=== PATIENT | male | born 1950 | race Caucasian/White ===

== ENCOUNTER → 2019-11-05 12:47 | Outpatient (CLI) | payer MEDICARE, SELFPAY ==
[2019-08-14 13:25] VITALS: BMI 36.2
--- NOTE | 2019-11-05 12:49 | ECHOCS_ITS ---
Reason For Study: AFIB Procedure This was a 2D Doppler, Color Flow transthoracic echocardiogram. The study was technically difficult. The study was technically limited. Contrast injection was performed. Exam performed in department. Left Ventricle Normal size and thickness. The estimated ejection fraction is 65 %. Stage 1 diastolic dysfunction. No regional wall motion abnormalities noted. Right Ventricle Normal size and thickness. Normal systolic function. Atria Normal left atrium. Normal right atrium. Normal atrial septum. Mitral Valve The mitral valve is structurally normal. No prolapse or stenosis seen. Tricuspid Valve Normal tricuspid valve. Unable to estimate RV systolic pressure due to insufficient tricuspid regurgitant envelope. Aortic Valve Trisinus/trileaflet aortic valve. Mild diffuse aortic valve thickening. There is no aortic stenosis. Pulmonic Valve Normal pulmonic valve. Great Vessels Normal aortic root. Normal arch. Normal inferior vena cava. Inferior vena cava collapse with sniff. Pericardium/Pleural No pericardial effusion. Medication 22 gauge I.V. with prn adaptor inserted into right arm. Diluted definity 4.0ml given slow IV push to enhance endocardial definition. MMode/2D Measurements & Calculations RVDd: 3.5 cm Ao root diam: 3.2 cm LAV(MOD-bp): 57.4 ml LAV(MOD-bp) Indexed: 23.9 ml/m2 LAV(MOD-sp2): 74.6 ml LAV(MOD-sp4): 42.6 ml SV(MOD-sp4): 93.0 ml SV(sp4-el): 98.2 ml LVAd ap4: 39.3 cm2 EDV(MOD-sp4): 139.4 ml EDV(sp4-el): 146.6 ml LVAs ap4: 19.5 cm2 ESV(MOD-sp4): 46.4 ml ESV(sp4-el): 48.5 ml EF(MOD-sp4): 66.7 % EF(sp4-el): 66.9 % LA dimension(2D): 3.8 cm LA A4 area: 17.5 cm2 RA A4 area: 13.3 cm2 Time Measurements MV dec time: 0.16 sec Doppler Measurements & Calculations MV E max shawn: 86.4 cm/sec Lat Peak E' Shawn: 7.6 cm/sec Med Peak E' Shawn: 5.8 cm/sec MV A max shawn: 113.9 cm/sec E/E' lat: 11.4 E/E' med: 14.9 MV E/A: 0.76 Ao V2 max: 131.4 cm/sec LV V1 max: 95.5 cm/sec PA V2 max: 120.5 cm/sec Ao max P.9 mmHg LV V1 max P.6 mmHg Interpretation Summary The estimated ejection fraction is 65 %. Stage 1 diastolic dysfunction. Unable to estimate RV systolic pressure due to insufficient tricuspid regurgitant envelope. Patient appears to be in normal sinus rhythm. The study was technically difficult. Contrast injection was performed. There is no comparison study available. Ordering Physician: Madhu Gurrola Referring Physician: Waqas YEE Performed By: Iglesia SHIELDS, Ryanne SEBASTIAN and Student
== END ==
PROVIDERS: PCP Physician Assistant; Referring Provider Internal Medicine Cardiovascular Disease; Visit Provider Internal Medicine Cardiovascular Disease
DX: I48.0 Paroxysmal atrial fibrillation (principal)
CPT/HCPCS: 93306; Q9957; A4216; C8929

== ENCOUNTER → 2019-11-09 13:24 | Outpatient (CLI) | payer MEDICARE, SELFPAY ==
[2019-08-14 13:25] VITALS: BMI 36.2
--- NOTE | 2019-11-09 13:25 | STEWCON_ITS ---
Reason For Study: Atrial Fibrillation Stress Results Protocol: Modified Ceasar Protocol With Definity Maximum Predicted HR: 150 bpm Target HR: 128 bpm % Maximum Predicted HR: 81 % Heart Stage Duration Rate BP Comment (mm:ss) (bpm) No Chest Pain; 3 ML Diluted Definity; Pt Diaphoretic- Baseline 90 154/90Electrodes Not Adhering Well Modified Ceasar Protocol Stage 0 3:00 115 184/82No Chest Pain; Mild to Mod Dyspnea Modified Ceasar Protocol Stage 1/2 3:00 118 190/84No Chest Pain; Mild to Mod Dyspnea Modified Ceasar Protocol Stage 1 1:07 122 / No Chest Pain; Mod to Severe Dyspnea Recovery 96 154/88No Chest Pain Stress Duration: 7:07 mm:ss Maximum Stress HR: 122 bpm METS: 4 Baseline Echocardiogram Findings The estimated ejection fraction is 65 %. Stress Echo Wall motion Data Resting WM Intermediate WM Stress WM Resting Wall Motion Wall Motion Stress No regional wall motion No regional wall motion abnormalities noted. abnormalities noted. EKG Data The baseline ECG displays normal sinus rhythm. The maximum heart rate attained was 136 beats per minute. This was 90% of maximum predicted heart rate. The patient exercised into stage 1 of the Ceasar protocol. During stress, there were no ST or T wave changes noted to suggest ischemia. No clinical angina was noted. No arrhythmias noted. Interpretation Summary The estimated ejection fraction is 65 %. Normal, submaximal, treadmill echocardiogram. Negative for ischemia by EKG and echocardiographic criteria. No anginal symptoms noted. No arrhythmias noted. Hypertensive blood pressure response to exercise. Below average exercise capacity for age. Final LVEF is 75%. Test terminated due to dyspnea. Patient tolerated procedure well. Decrease sensitivity due to poor echo windows requiring Definity agent. No complications. The study was technically difficult. Contrast injection was performed. Ordering Physician: Madhu Gurrola Referring Physician: Yuniel Haro Performed By: Sadaf Rao RDCS
== END ==
PROVIDERS: PCP Physician Assistant; Referring Provider Internal Medicine Cardiovascular Disease; Visit Provider Internal Medicine Cardiovascular Disease
DX: I48.0 Paroxysmal atrial fibrillation (principal); E78.5 Hyperlipidemia, unspecified; Z86.79 Personal history of other diseases of the circulatory system; R94.31 Abnormal electrocardiogram [ECG] [EKG]
CPT/HCPCS: 93017; 93350; Q9957; A4216; C8928

== ENCOUNTER 2020-09-29 17:40 | Inpatient (IN) | payer MEDICARE, SELFPAY ==
[2020-07-01 15:26] VITALS: BMI 38.7
[2020-09-29] VITALS (10 sets, daily range): BP systolic 89–135; BP diastolic 54–66; PULSE 88–101; RESP 18–22; TEMP 36.2–37.2; O2SAT 96–100; BMI 37.8; BMI 36.8
--- NOTE | 2020-09-29 17:51 | EKG12_ITS ---
Test Reason : RIGHT SIDED Blood Pressure : / mmHG Vent. Rate : 103 BPM Atrial Rate : 103 BPM P-R Int : 192 ms QRS Dur : 100 ms QT Int : 288 ms P-R-T Axes : 022 003 142 degrees QTc Int : 377 ms Sinus tachycardia with occasional Premature ventricular complexes Poor R wave progression Anterolater MT, age undetermined, cannot be excluded Posterior MT, age undetermined, cannot be excluded Nonspecific ST and T wave abnormality Confirmed by STANLEY MORROW, KEVEN ([id number]), editor in chief CHANDRA QUICK ([id number]) on 10/01/2020 1:00:59 PM Referred By: PATI Confirmed By:KEVEN ANGEL MD
--- NOTE | 2020-09-29 17:54 | EKG12_ITS ---
Test Reason : SYNCOPE Blood Pressure : / mmHG Vent. Rate : 104 BPM Atrial Rate : 104 BPM P-R Int : 188 ms QRS Dur : 184 ms QT Int : 404 ms P-R-T Axes : 025 039 -86 degrees QTc Int : 531 ms Sinus tachycardia Left bundle branch block Abnormal ECG Confirmed by STANLEY MORROW, KEVEN ([id number]), film or videotape editor CHANDRA QUICK ([id number]) on 10/01/2020 12:57:13 PM Referred By: PATI Confirmed By:KEVEN ANGEL MD
--- NOTE | 2020-09-29 18:01 | CT_ITS ---
STUDY: CTA CHEST AND CT ABDOMEN/PELVIS WITH CONTRAST REASON FOR EXAM: Male, 69 years old. chest pain, abdominal pain RADIATION DOSAGE (If Supplied By Facility): CTDIvol = ( 14.08 ) mGy, DLP = ( 1480.36 ) mGycm TECHNIQUE: The examination was performed with the intravenous administration of IV 100mL Isovue-370. Post-processing of the angiographic images was performed, with multiplanar reformation and 3D reconstruction. Individualized dose optimization techniques were used for this CT. COMPARISON: No relevant priors. FINDINGS: CTA Chest Normal enhancement of the main pulmonary artery and right and left pulmonary arteries. Normal enhancement of the bilateral peripheral pulmonary arteries. There is no demonstrated pulmonary embolism. Normal thoracic aorta and visualized great vessels. There is no demonstrated aortic dissection. Normal heart and pericardium. Normal mediastinum. Normal hilar regions. Normal visualized trachea and bronchi. The lungs are well expanded. Normal pulmonary parenchyma. Normal pleura. Normal chest wall structures. Normal osseous structures. Normal visualized upper abdomen. CT Abdomen T Pelvis The visualized lung bases are unremarkable. The visualized portions of the heart are within normal limits. There is decreased attenuation of the liver consistent with steatosis. Normal gallbladder and extrahepatic biliary system. Normal spleen. There is diffuse enlargement of the pancreas with robin-pancreatic edema suggesting acute pancreatitis. No loculated fluid collection to suggest abscess or pseudocyst. Normal enhancement of the pancreas without evidence of necrotizing pancreatitis. Small amount of fluid within the left and right anterior pararenal spaces as well as the as well as the paracolic gutters. Normal bilateral adrenal glands. Normal right kidney. Normal left kidney. Normal visualized stomach. Normal small intestine. Normal colon. The appendix is visualized and appears normal. Normal abdominal aorta. Normal inferior vena cava. Normal retroperitoneum. Normal urinary bladder. Normal abdominal wall. Mild levoscoliosis lumbar spine with degenerative disc disease. Status post right hip arthroplasty which produces streak artifact obscures the pelvis. CT/CTA Chst, Abd, Pel W and/or WO IMPRESSION: 1. No CT evidence of pulmonary embolism. 2. Acute pancreatitis without pseudocyst, abscess, or necrotizing pancreatitis. Electronically Signed: Jerry Perry MD at 18:59 EDT Tel , Service support ,
[2020-09-29] MEDS: 0.9% Normal Saline 1,000 ML 999 ML IV ×2 (18:15→20:14)
[2020-09-29 18:19] LABS: Absolute Lymphocyte Count 0.38 X10^3/uL (0.83-4.51); Absolute Neutrophil Count 6.8 X10^3/uL (2.0-7.7); Basophil# 0.03 X10^3/uL; Basophil% 0.4 % (0-1); Eosinophil# 0.01 X10^3/uL; Eosinophils% 0.1 % (0-5); Hematocrit 40.2 % (40-54); Hemoglobin 13.6 g/dL (13.0-16.5); Lymphocyte # 0.38 X10^3/ul (0.83-4.51); Lymphocyte % 4.8 % (19-41); Mean Corp Hgb Conc 33.8 g/dL (32-36); Mean Corpuscular Hgb 35.4 pg (27.0-32.0); Mean Corpuscular Volume 104.7 fL (80-94); Mean Platelet Vol. 9.5 fl (6.2-12.0); Monocyte# 0.61 X10^3/uL; Monocyte% 7.7 % (0-10); NRBC Flagged by Analyzer 0.6 % (0-5); Neutrophil # 6.81 X10^3/uL (2.7-7.7); Neutrophil % 85.7 % (47-70); POSITIVE DIFFERENTIAL YES; Platelet Count 103 K/mm3 (150-450); RBC Distribution Width CV 12.2 % (11.6-14.6); RBC Distribution Width SD 47.2 fl (35.1-43.9); Red Blood Count 3.84 M/mm3 (4.6-6.2); White Blood Count 7.9 K/mm3 (4.4-11.0)
--- NOTE | 2020-09-29 18:22 | RAD_ITS ---
STUDY: X-RAY CHEST REASON FOR EXAM: Male, 69 years old. dyspnea TECHNIQUE: Single AP portable view of the chest. COMPARISON: 07/24/2016 FINDINGS: The lungs are clear and expanded. There is no demonstrated pleural abnormality. Normal size heart. Normal mediastinum and brandy. Normal visualized pulmonary arteries. Normal visualized aortic arch and descending thoracic aorta. Normal visualized thoracic spine. Normal visualized ribs, clavicles, and shoulders. There is no demonstrated abnormality of the visualized soft tissue structures of the upper abdomen. RAD/Chest 1 View (Portable) IMPRESSION: Normal x-ray examination of the chest. Electronically Signed: Jerry Perry MD at 18:39 EDT Tel , Service support ,
[2020-09-29 18:31] LABS: Differential Indicated SCAN CRITERIA MET
[2020-09-29 18:41] LABS: International Normalized Ratio 1.2; Prothrombin Time (Protime)PT. 14.3 SECONDS (11.7-14.9)
[2020-09-29 18:43] LABS: ALB/GLOB Ratio 1.1 RATIO (0.9-2.4); AST(SGOT) 57 U/L (15-37); Alanine Aminotransfer ALT/SGPT 38 U/L (16-61); Albumin, Serum 3.6 g/dL (3.2-5.0); Alkaline Phosphatase 68 U/L (45-117); Anion Gap 25 (5-15); BUN 13 mg/dL (7-18); BUN/Creat Ratio 8.7 RATIO (10-20); Calcium,Total 10.7 mg/dL (8.5-10.1); Chloride 89 mmol/L (98-107); Differential Comment SCANNED; EST Glomerular Filtration Rate 49 mL/min (>60); Est Glom Filt Rate - Afr Amer 59 mL/min (>60); Estimated Creatinine Clearance 48.81 ml/min; Globulin 3.4 g/dL (2.2-4.2); Glucose 125 mg/dL (74-106); Partial Thromboplast Time 25.8 Seconds (24.1-36.2); Potassium 2.8 mmol/L (3.5-5.1); Sodium Level 127 mmol/L (136-145)
[2020-09-29 18:46] LABS: BNP,B-Type NATRIURETIC PEPTIDE 19.3 pg/mL (0-100)
[2020-09-29 19:08] LABS: Lactic Acid 5.6 mmol/L (0.4-1.9)
[2020-09-29 19:13] LABS: D-Dimer Quantitative (DVT/PE) 9.19 FEU/ug/m (0.27-0.49)
[2020-09-29 19:47] LABS: Lipase 3860 U/L (73-393); Magnesium 1.6 mg/dL (1.6-2.6)
[2020-09-29] MEDS: Magnesium Sulfate 4gm/100mL 4 GM/100 ML IV.SOLN. IV (20:14)
[2020-09-29] MEDS: Potassium Chloride 10mEq/100mL 10 MEQ/100 ML IV.SOLN. 100 MEQ IV BOLUS ×4 (20:14→23:27)
--- NOTE | 2020-09-29 21:02 | EX.ED.DYSGE1 ---
HPI History of Present Illness Chief Complaint: Syncope [facility] Medical History Asthma Dysmetabolic syndrome X GERD (gastroesophageal reflux disease) History of paroxysmal supraventricular tachycardia Hyperlipidemia Hypertension Obesity Paroxysmal atrial fibrillation Home Medications albuterol sulfate 2 puff INHALATION Q4H PRN PRN 07/24/16 [History Last Taken Unknown] atorvastatin 20 mg PO QHS 07/24/16 [History Last Taken Unknown] aspirin 325 mg tablet 325 mg PO DAILY tab 07/31/19 [History Last Taken Unknown] losartan 100 mg tablet 100 mg PO DAILY #90 tab 03/18/20 [Rx Last Taken Unknown] azelastine 137 mcg (0.1 %) nasal spray aerosol 1 spray INTRANASAL BID PRN 05/06/20 [History Last Taken Unknown] amlodipine 10 mg tablet 10 mg PO DAILY #30 tab 07/01/20 [Rx Last Taken Unknown] acebutolol 200 mg PO BID 09/29/20 [History Last Taken Unknown] Allergy/AdvReac Type Severity Reaction Status Date / Time No Known Allergies Allergy Verified 09/29/20 17:46 environmental allergies Allergy Intermediate eyes Uncoded 09/29/20 17:46 water, asthma Family History Mother CAD (coronary artery disease) Arthritis Sister , MVA Motor vehicle accident Grandfather Throat cancer Surgical History 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) Social History (Updated 07/02/20 @ 14:25 by Delfino Powell OIL RIG DRILLER, OIL RIG DRILLER-C) Smoking Status: Never smoker alcohol intake: current alcohol intake frequency: 0-2 drinks per day substance use type: does not use caffeine: No EXAM Physical Exam Const Vital Signs: 09/29/20 17:41 09/29/20 17:46 09/29/20 17:54 Temperature 97.1 F L Temperature Source Temporal Pulse Rate 94 97 Respiratory Rate 22 H 18 Respiratory Effort Short of Breath Respiratory Pattern Tachypnea Blood Pressure 97/54 L 89/58 L Blood Pressure Mean 68 68 Pulse Ox 98 98 Oxygen Delivery Method Room Air Room Air Oxygen Flow Rate (L/min) 09/29/20 18:24 09/29/20 19:00 09/29/20 20:00 Temperature 97.5 F L 98.9 F 98.9 F Temperature Source Oral Oral Oral Pulse Rate 95 95 88 Respiratory Rate 20 H 22 H 18 Respiratory Effort Respiratory Pattern Blood Pressure 96/60 91/58 L 92/63 Blood Pressure Mean 72 69 72 Pulse Ox 100 96 100 Oxygen Delivery Method Nasal Cannula Nasal Cannula Room Air Oxygen Flow Rate (L/min) 2 2 2 MDM MDM MDM Narrative Medical decision making narrative: Patient presents hypotensive with near syncopal episode. He is not complaining of any pain in his chest or his abdomen. He had an initial EKG which showed a wide-complex sinus tachycardia with left bundle branch block as interpreted by myself. When it was noticed that his rhythm had changed on the monitor another EKG was performed which showed a sinus rhythm at 102 beats per minute with some T wave inversions in V3 V4 lead I and lead aVL as interpreted by myself. Right-sided EKG was performed which is sinus rhythm at 103 bpm with T wave inversions in 1 and aVL and few PVCs as interpreted by myself. Chest x-ray as interpreted by myself shows no acute cardiopulmonary process. When a blood pressure cuff was placed on his left arm his systolic blood pressure was 20 last than his right arm. At this point he was taken for CTA of the chest abdomen pelvis which did not have identify PEs or dissection but does identify pancreatitis. At this point added on a lipase which is elevated at 3860. Initially the patient told me that he does not drink but after finding this I asked him again and he stated that he does shots in the morning. Patient's D-dimer was ordered prior to the scan however says it was emergently done that did result. It was 9.19 without evidence of PE. His rapid Covid is negative. White blood cell count 7.9, hemoglobin 13.6, platelets 103. Patient is lymphopenic. On his CMP his sodium is 127, potassium 2.8, chloride 89, CO2 13, anion gap of 25. Creatinine is 1.5. Patient's calcium is 10.7 total bilirubin 1.5, AST 57 the rest of his LFTs are normal. Troponin is negative. BNP is negative. EtOH is 28. 3 L of fluid. Although his magnesium level is the lower limit of normal I did give him magnesium with the IV fluids and then start restart of depleting potassium IV as to keep him n.p.o. for his of pancreatitis. His lactic acid then returned at 5.6. After fluids were repleted patient became anxious and his blood pressure increased and is currently 159/108. I believe the patient is likely going into withdrawal. He is ordered 1 mg of Ativan. Patient was discussed with hospitalist who will admit the patient in stabilized condition. Impression: 1. Acute pancreatitis 2. Hypotension resolved 3. Lactic acidosis 4. EtOH withdrawal 5. Hypokalemia 6. Hypercalcemia Lab Data Labs: Laboratory Results - last 24 hr 09/29/20 09/29/20 09/29/20 17:30 17:30 17:30 WBC 7.9 RBC 3.84 L Hgb 13.6 Hct 40.2 MCV 104.7 H MCH 35.4 H MCHC 33.8 RDW Std Deviation 47.2 H RDW Coeff of Willy 12.2 Plt Count 103 L MPV 9.5 Immature Gran % (Auto) 1.300 H Neut % (Auto) 85.7 H Lymph % (Auto) 4.8 L Petroleum % (Auto) 7.7 Eos % (Auto) 0.1 Baso % (Auto) 0.4 Absolute Neuts (auto) 6.8 Absolute Lymphs (auto) 0.38 L Nucleated RBC % 0.6 Differential Comment SCANNED PT 14.3 INR 1.2 APTT 25.8 D-Dimer Quant (PE/DVT) 9.19 H* Sodium 127 L Potassium 2.8 L Chloride 89 L Carbon Dioxide 13.0 L Anion Gap 25 H BUN 13 Creatinine 1.50 H Estim Creat Clear Calc 48.81 Est GFR (MDRD) Af Amer 59 L Est GFR (MDRD) Non-Af 49 L BUN/Creatinine Ratio 8.7 L Glucose 125 H Lactic Acid Calcium 10.7 H Magnesium Total Bilirubin 1.50 H AST 57 H ALT 38 Alkaline Phosphatase 68 Troponin I < 0.015 B-Natriuretic Peptide Total Protein 7.0 Albumin 3.6 Globulin 3.4 Albumin/Globulin Ratio 1.1 Lipase Ethyl Alcohol 09/29/20 09/29/20 09/29/20 17:30 17:30 17:58 WBC RBC Hgb Hct MCV MCH MCHC RDW Std Deviation RDW Coeff of Willy Plt Count MPV Immature Gran % (Auto) Neut % (Auto) Lymph % (Auto) Petroleum % (Auto) Eos % (Auto) Baso % (Auto) Absolute Neuts (auto) Absolute Lymphs (auto) Nucleated RBC % Differential Comment PT INR APTT D-Dimer Quant (PE/DVT) Sodium Potassium Chloride Carbon Dioxide Anion Gap BUN Creatinine Estim Creat Clear Calc Est GFR (MDRD) Af Amer Est GFR (MDRD) Non-Af BUN/Creatinine Ratio Glucose Lactic Acid Calcium Magnesium 1.6 Total Bilirubin AST ALT Alkaline Phosphatase Troponin I B-Natriuretic Peptide 19.3 Total Protein Albumin Globulin Albumin/Globulin Ratio Lipase 3860 H Ethyl Alcohol 28.0 09/29/20 18:20 WBC RBC Hgb Hct MCV MCH MCHC RDW Std Deviation RDW Coeff of Willy Plt Count MPV Immature Gran % (Auto) Neut % (Auto) Lymph % (Auto) Petroleum % (Auto) Eos % (Auto) Baso % (Auto) Absolute Neuts (auto) Absolute Lymphs (auto) Nucleated RBC % Differential Comment PT INR APTT D-Dimer Quant (PE/DVT) Sodium Potassium Chloride Carbon Dioxide Anion Gap BUN Creatinine Estim Creat Clear Calc Est GFR (MDRD) Af Amer Est GFR (MDRD) Non-Af BUN/Creatinine Ratio Glucose Lactic Acid 5.6 H* Calcium Magnesium Total Bilirubin AST ALT Alkaline Phosphatase Troponin I B-Natriuretic Peptide Total Protein Albumin Globulin Albumin/Globulin Ratio Lipase Ethyl Alcohol Radiography Diagnostic Testing: Radiology Impression Chest/Abdomen/Pelvis CTA 09/29/20 18:01 IMPRESSION: 1. No CT evidence of pulmonary embolism. 2. Acute pancreatitis without pseudocyst, abscess, or necrotizing pancreatitis. Electronically Signed: Jerry Perry MD at 18:59 EDT Tel , Service support , Chest X-Ray 09/29/20 18:22 IMPRESSION: Normal x-ray examination of the chest. Electronically Signed: Jerry Perry MD at 18:39 EDT Tel , Service support , Discharge Plan Triage Chief Complaint: Syncope ED Provider: Lazaro Foreman Dx/Rx/DC Orders Prescriptions: No Action losartan 100 mg tablet 100 mg PO DAILY Qty: 90 RF: 3 amlodipine 10 mg tablet 10 mg PO DAILY Qty: 30 RF: 11 atorvastatin 20 MG tablet 20 mg PO QHS RF: 0 albuterol sulfate 1 PUFF inhaler 2 puff inhalation Q4H PRN PRN (Reason: Sob &/Or Wheezing) RF: 0 aspirin 325 mg tablet 325 mg PO DAILY RF: 0 azelastine 137 mcg (0.1 %) aerosol,spray 1 spray INTRANASAL BID PRN (Reason: allergies) RF: 0 acebutolol 200 mg capsule 200 mg PO BID RF: 0 Primary Care Provider: Waqas Haro
[2020-09-29] MEDS: LORazepam 2 MG/ML Syringe 1 MG IV (21:26)
--- NOTE | 2020-09-29 21:27 | HP.PCM.HOS_ITS ---
[facility] - General General Date of Admission: 09/29/20 Date of Service: 09/29/20 Chief Complaint: Fall, could not get up. [facility] Narrative GUERLINE ROCKWELL, is a 69 years old male patient presented to the emergency room because of fall and was not able to stand up. Patient stated that he went to the bathroom, was sitting on the toilet, stood up and he tried to walk. He feels very weak and his legs gave out and he collapsed on the floor and could not get up. He denied being dizzy or lightheaded at that that time. He denied loss of consciousness, syncope or presyncope. He denied chest pain, palpitation. He did mention that he was short of breath when that happened. He denied fever or chills. He denied cough or sputum production. He denied seizure activity. He has no other complaints. He denied abdominal pain, nausea or vomiting. He had a history of paroxysmal atrial fibrillation, has been on acebutolol for rate control but he is not on anticoagulation. He had a history of hypertension which has been under control with Norvasc, losartan and acebutolol. He has alcohol abuse and has been drinking every day at least for the last year and his last drink was last night. In the emergency department, he was afebrile, initial blood pressure was borderline, systolic was around 90 but improved with IV fluids. Heart rate stable, pulse ox was 99% on 2 L. Routine blood work was remarkable for platelet count of 103,000, sodium was 127, potassium is 2.8. Creatinine is 1.5. Lactic acid was 5.6. LFT revealed bilirubin of 1.5, otherwise unremarkable. Initial EKG revealed sinus tachycardia with LBBB,. Repeat EKG revealed sinus tachycardia again but LBBB disappeared, no acute ST relation. Troponin was negative. Chest x-ray showed no acute findings. CTA chest showed no PE or dissection. CTA of the abdomen revealed acute pancreatitis without evidence of pseudocyst, abscess or necrotizing pancreatitis. He is being admitted for acute pancreatitis, electrolyte abnormalities, transient hypotension, lactic acidosis, alcohol withdrawal. [facility] Medical History (Updated 09/30/20 @ 00:[address] Tucker Martin MD) Asthma Dysmetabolic syndrome X GERD (gastroesophageal reflux disease) History of paroxysmal supraventricular tachycardia Hyperlipidemia Hypertension Obesity Paroxysmal atrial fibrillation Home Medications albuterol sulfate 2 puff INHALATION Q4H PRN PRN 07/24/16 [History Last Taken Unknown] atorvastatin 20 mg PO QHS 07/24/16 [History Last Taken 09/28/20] aspirin 325 mg tablet 325 mg PO DAILY tab 07/31/19 [History Last Taken 09/29/20] losartan 100 mg tablet 100 mg PO DAILY #90 tab 03/18/20 [Rx Last Taken 09/29/20] azelastine 137 mcg (0.1 %) nasal spray aerosol 1 spray INTRANASAL BID PRN 05/06/20 [History Last Taken Unknown] amlodipine 10 mg tablet 10 mg PO DAILY #30 tab 07/01/20 [Rx Last Taken 09/29/20] acebutolol 200 mg PO BID 09/29/20 [History Last Taken 09/29/20] Allergy/AdvReac Type Severity Reaction Status Date / Time No Known Allergies Allergy Verified 09/29/20 17:46 environmental allergies Allergy Intermediate eyes Uncoded 09/29/20 17:46 water, asthma Family History Mother CAD (coronary artery disease) Arthritis Sister , MVA Motor vehicle accident Grandfather Throat cancer Surgical History 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) Social History Smoking Status: Never smoker alcohol intake: current alcohol intake frequency: 0-2 drinks per day substance use type: does not use caffeine: No ROS Constitutional Constitutional: Reports anorexia, fatigue and weakness; Denies chills, fever(s) or malaise Eyes Eyes: Denies blurry vision, change in eye color, change in vision, double vision or eye pain ENT HEENT: Denies ear pain, epistaxis, headache(s), nasal congestion, post nasal drip or sore throat Cardiovascular Cardiovascular: Denies chest pain, dyspnea on exertion, edema, lightheadedness, orthopnea, palpitations, paroxysmal nocturnal dyspnea or syncope Respiratory/Chest Respiratory/Chest: Reports shortness of breath at rest; Denies cough, dyspnea, hemoptysis, productive cough or wheezing Gastrointestinal Gastrointestinal: Denies abdominal pain, constipation, diarrhea, hematemesis, hematochezia, melena, nausea or vomiting Genitourinary Genitourinary: Denies burning urination, dysuria, hematuria, urinary hesitancy or urinary urgency Musculoskeletal Musculoskeletal: Denies arthralgias, back pain, joint pain, joint swelling, myalgias or neck pain Neurologic Neurologic: Denies confusion, dizziness, focal weakness, headache(s), numbness, paresthesias, seizures, tingling or tremor(s) Psychiatric Psychiatric: Denies anxiety, depression, hallucinations, homicidal ideation or suicidal ideation Endocrine Endocrinology: Denies change in body appearance, cold intolerance, heat intolerance, polydipsia or polyuria Hematologic/Lymphatic Hematologic/Lymphatic: Denies easy bleeding, easy bruising or lymphadenopathy Allergic/Immunologic Allergic/Immunologic: Denies itchy eyes, rhinitis, throat swelling, tongue swelling, hives, urticaria or wheezing Vital Signs Vital Signs Vital Signs: 09/29/20 17:41 09/29/20 17:46 09/29/20 17:54 Temperature 97.1 F L Temperature Source Temporal Pulse Rate 94 97 Respiratory Rate 22 H 18 Respiratory Effort Short of Breath Respiratory Pattern Tachypnea Blood Pressure 97/54 L 89/58 L Blood Pressure Mean 68 68 Pulse Ox 98 98 Oxygen Delivery Method Room Air Room Air Oxygen Flow Rate (L/min) 09/29/20 18:24 09/29/20 19:00 09/29/20 20:00 Temperature 97.5 F L 98.9 F 98.9 F Temperature Source Oral Oral Oral Pulse Rate 95 95 88 Respiratory Rate 20 H 22 H 18 Respiratory Effort Respiratory Pattern Blood Pressure 96/60 91/58 L 92/63 Blood Pressure Mean 72 69 72 Pulse Ox 100 96 100 Oxygen Delivery Method Nasal Cannula Nasal Cannula Room Air Oxygen Flow Rate (L/min) 2 2 2 09/29/20 21:00 09/29/20 21:11 09/29/20 21:15 Temperature 98.9 F 97.8 F Temperature Source Oral Temporal Pulse Rate 90 90 95 Respiratory Rate 21 H 21 H 22 H Respiratory Effort Respiratory Pattern Blood Pressure 133/66 H 133/66 H 133/66 H Blood Pressure Mean 88 88 88 Pulse Ox 100 100 99 Oxygen Delivery Method Nasal Cannula Nasal Cannula Nasal Cannula Oxygen Flow Rate (L/min) 2 2 2 Weight Weight: 271 lb 9.752 oz Body Mass Index (BMI) 37.8 Physical Exam Const alert, oriented x3 and no limitations Constitutional Narrative: Anxious, jittery. General Appearance: cooperative, comfortable and well kempt HEENT normocephalic, head/scalp atraumatic and moist oral mucous membranes Head and Scalp: normocephalic and atraumatic Eyes PERRL, EOMs intact bilaterally, conjunctivae normal and no scleral icterus General Eye: normal appearance of both eyes Periorbital: periorbital findings normal Neck no lymphadenopathy, supple, no meningeal signs, no JVD and no carotid bruits General: trachea midline Thyroid: thyroid normal Resp normal air movement and clear to auscultation bilaterally Resp Narrative: Diminished with sounds bilateral, otherwise clear. Auscultation: Negative for crackles, rales, rhonchi or wheezes Cardio regular rate, regular rhythm, S1 normal heart sound, S2 normal heart sound and no JVD Cardio Narrative: Tachycardia. Peripheral Pulses: pulses 2+ throughout GI normal to inspection, nondistended, normoactive bowel sounds, soft to palpation, non-tender and non-distended; Negative for hepatosplenomegaly Auscultation: normoactive bowel sounds Extremity normal to inspection and full ROM Extremity Narrative: Trace edema, no clubbing or cyanosis. Skin no rashes or lesions noted, no wounds and no petechiae Neuro oriented x3, CN's II-XII intact bilaterally and moves all extremities Sensorium / Orientation: alert Speech: speech normal Motor Exam: strength 5/5 throughout Psych mental status grossly normal, affect normal and denies hallucinations Activity / Motor Behavior: restless Lab / Micro Data Result Diagrams: 09/29/20 17:30 09/29/20 17:30 Labs: Laboratory Results - last 24 hr 09/29/20 09/29/20 09/29/20 17:30 17:30 17:30 WBC 7.9 RBC 3.84 L Hgb 13.6 Hct 40.2 MCV 104.7 H MCH 35.4 H MCHC 33.8 RDW Std Deviation 47.2 H RDW Coeff of Willy 12.2 Plt Count 103 L MPV 9.5 Immature Gran % (Auto) 1.300 H Neut % (Auto) 85.7 H Lymph % (Auto) 4.8 L [place] % (Auto) 7.7 Eos % (Auto) 0.1 Baso % (Auto) 0.4 Absolute Neuts (auto) 6.8 Absolute Lymphs (auto) 0.38 L Nucleated RBC % 0.6 Differential Comment SCANNED PT 14.3 INR 1.2 APTT 25.8 D-Dimer Quant (PE/DVT) 9.19 H* Sodium 127 L Potassium 2.8 L Chloride 89 L Carbon Dioxide 13.0 L Anion Gap 25 H BUN 13 Creatinine 1.50 H Estim Creat Clear Calc 48.81 Est GFR (MDRD) Af Amer 59 L Est GFR (MDRD) Non-Af 49 L BUN/Creatinine Ratio 8.7 L Glucose 125 H Lactic Acid Calcium 10.7 H Magnesium Total Bilirubin 1.50 H AST 57 H ALT 38 Alkaline Phosphatase 68 Troponin I < 0.015 B-Natriuretic Peptide Total Protein 7.0 Albumin 3.6 Globulin 3.4 Albumin/Globulin Ratio 1.1 Lipase Ethyl Alcohol 09/29/20 09/29/20 09/29/20 17:30 17:30 17:58 WBC RBC Hgb Hct MCV MCH MCHC RDW Std Deviation RDW Coeff of Willy Plt Count MPV Immature Gran % (Auto) Neut % (Auto) Lymph % (Auto) [place] % (Auto) Eos % (Auto) Baso % (Auto) Absolute Neuts (auto) Absolute Lymphs (auto) Nucleated RBC % Differential Comment PT INR APTT D-Dimer Quant (PE/DVT) Sodium Potassium Chloride Carbon Dioxide Anion Gap BUN Creatinine Estim Creat Clear Calc Est GFR (MDRD) Af Amer Est GFR (MDRD) Non-Af BUN/Creatinine Ratio Glucose Lactic Acid Calcium Magnesium 1.6 Total Bilirubin AST ALT Alkaline Phosphatase Troponin I B-Natriuretic Peptide 19.3 Total Protein Albumin Globulin Albumin/Globulin Ratio Lipase 3860 H Ethyl Alcohol 28.0 09/29/20 18:20 WBC RBC Hgb Hct MCV MCH MCHC RDW Std Deviation RDW Coeff of Willy Plt Count MPV Immature Gran % (Auto) Neut % (Auto) Lymph % (Auto) [place] % (Auto) Eos % (Auto) Baso % (Auto) Absolute Neuts (auto) Absolute Lymphs (auto) Nucleated RBC % Differential Comment PT INR APTT D-Dimer Quant (PE/DVT) Sodium Potassium Chloride Carbon Dioxide Anion Gap BUN Creatinine Estim Creat Clear Calc Est GFR (MDRD) Af Amer Est GFR (MDRD) Non-Af BUN/Creatinine Ratio Glucose Lactic Acid 5.6 H* Calcium Magnesium Total Bilirubin AST ALT Alkaline Phosphatase Troponin I B-Natriuretic Peptide Total Protein Albumin Globulin Albumin/Globulin Ratio Lipase Ethyl Alcohol Micro: Microbiology 09/29/20 19:35 SARS-CoV-2 Antigen (Rapid) - Final Nasal Secretion Radiology Impression Chest/Abdomen/Pelvis CTA 09/29/20 18:01 IMPRESSION: 1. No CT evidence of pulmonary embolism. 2. Acute pancreatitis without pseudocyst, abscess, or necrotizing pancreatitis. Electronically Signed: Jerry Perry MD at 18:59 EDT Tel , Service support , Chest X-Ray 09/29/20 18:22 IMPRESSION: Normal x-ray examination of the chest. Electronically Signed: Jerry Perry MD at 18:39 EDT Tel , Service support , Assessment & Plan Assessment/Plan (1) Acute hyperactive alcohol withdrawal delirium: (2) Lactic acidosis: (3) Hypokalemia: (4) Hyponatremia: (5) Acute pancreatitis: (6) Hypertension: QUALIFIERS: Hypertension type: essential hypertension Qualified Code(s): I10 - Essential (primary) hypertension (7) Paroxysmal atrial fibrillation: (8) Hyperlipidemia: QUALIFIERS: Hyperlipidemia type: unspecified Qualified Code(s): E78.5 - Hyperlipidemia, unspecified (9) GERD (gastroesophageal reflux disease): (10) Asthma: (11) Hypophosphatemia: PLAN: This is a 69 years old male patient presented to the emergency room because of fall and difficulty ambulating, found to have acute pancreatitis on CT scan abdomen with elevated lipase and also found to have electrolyte abnormalities, lactic acidosis and alcohol withdrawal. #1 acute pancreatitis: Probably alcoholic pancreatitis. CT scan abdomen pelvis reviewed. Lipase is elevated. Patient denies any abdominal pain. Plan: Admit to PCU, cardiac monitoring, n.p.o., IV fluids, IV morphine as needed, Zofran as needed, IV Pepcid twice daily, check serum magnesium, phosphorus, TSH, repeat CBC and CMP tomorrow morning, repeat lipase tomorrow morning, PT OT evaluation and treatment. #2 hyponatremia/hypokalemia/hypophosphatemia: Due to malnutrition and alcohol ism. Sodium is poorly currently low. Plan: IV fluids, replace potassium and phosphorus, check serum magnesium, repeat BMP tomorrow morning. #3 lactic acidosis: There is no evidence of infection, I doubt sepsis or severe sepsis. Chest x-ray showed no acute findings. Urinalysis showed no acute in fection. COVID-19 antigen was negative. Plan: Blood culture, repeat lactic acid in 3 hours. No indication for IV antibiotics. #4 acute alcohol withdrawal: Patient admitted drinking every day, last drink was last night. He is jittery and anxious. Plan: CIWA protocol, IV thiamine and folic acid supplement, Ativan as needed. #5 Acute kidney injury: Due to dehydration, prerenal. Unknown baseline kidney function. Plan: IV fluids, input output chart, repeat CMP tomorrow morning. #6 paroxysmal atrial fibrillation: Heart rate has been around 100, plan to continue acebutolol for rate control. He is not on anticoagulation. #7 hypertension: Initial blood pressure was low but improved with IV fluids. Plan to hold antihypertensive medications. #8 CODE STATUS: Full code, discussed with the patient. #9 DVT prophylaxis: Subcu heparin. This note was generated with [employer] dictation software. It may contain incorrect words, spelling, and punctuation that were not noted in checking the note before signing. Visit Charges Inpatient E&M: 03799 Init Hosp L3
[2020-09-29 22:34] LABS: Reflex Lactate? Y
[2020-09-29] MEDS: Morphine 2 MG/ML Syringe IV (22:43)
[2020-09-29 22:56] LABS: Bacteria 0 SEEN /hpf (None Seen); Mucous, Urine 0 SEEN /hpf (<or=2+); Squamous Epithelial Cells - UA 0 SEEN /hpf (0-5)
[2020-09-29] MEDS: Atorvastatin Calcium 20 MG Tablet PO (22:56)
[2020-09-29] MEDS: Heparin Injection (Vial) 5,000 UNIT/ML VIAL 5000 UNIT SC (22:56)
[2020-09-29 22:57] LABS: Color, Urine Yellow (Yellow); Glucose, Dipstick Normal (Normal); Ketone-Dipstick 50 mg/dl (Negative); Leukocyte Esterase-Dipstick 25 /ul (Negative); Nitrite-Dipstick Negative (Negative); Occult Blood-Urine 50 /ul (Negative); Protein-Dipstick 100 mg/dl (Negative); Specific Gravity, Urine 1.005 (1.002-1.030); Urine Clarity Sl. Cloudy (Clear); Urine Urobilinogen 1 mg/dl (Normal); Urine pH 6.5 (5.0 - 8.0)
[2020-09-29] MEDS: Lactated Ringers 1,000 ML 125 ML IV (22:57)
[2020-09-29 22:59] LABS: Urine Bilirubin Dipstick 3 mg/dL (Negative)
[2020-09-29 23:06] LABS: Red Blood Cells-Urine 0-5 SEEN /hpf (0-5); White Blood Cells 0-5 SEEN /hpf (0-5)
[2020-09-29 23:07] LABS: Hemoglobin A1c 4.4 % (3.8-5.6)
[2020-09-29 23:11] LABS: Amphetamine Urine VISTA NEGATIVE (<1000 ng/mL); Barbiturate Urine VISTA NEGATIVE (< 200 ng/mL); Benzodiazepine Urine VISTA NEGATIVE (< 200 ng/mL); Cocaine Urine VISTA NEGATIVE (< 300 ng/mL); Ecstacy Urine VISTA NEGATIVE (< 500 ng/mL); Methadone Urine VISTA NEGATIVE (< 300 ng/mL); PCP Urine VISTA NEGATIVE (< 25 ng/mL); THC Urine VISTA NEGATIVE (< 50 ng/mL); Vista UDS pH Range 6
[2020-09-29 23:12] LABS: CPK Total, Creatine Kinase 164 U/L (39-308); Phosphorus 1.3 mg/dL (2.5-4.9); Thyroid Stim Hormone (TSH) 1.38 uIU/mL (0.358-3.74)
[2020-09-29 23:15] LABS: Lactic Acid 1.9 mmol/L (0.4-1.9)
[2020-09-30] VITALS (30 sets, daily range): BP systolic 81–152; BP diastolic 42–78; PULSE 78–106; RESP 12–24; TEMP 36.3–37.3; O2SAT 86–100
[2020-09-30] MEDS: LORazepam 1 MG Tablet 2 MG PO ×2 (00:21→04:08)
[2020-09-30] MEDS: Potassium Chloride 10mEq/100mL 10 MEQ/100 ML IV.SOLN. 100 MEQ IV BOLUS ×6 (00:29→20:12)
[2020-09-30] MEDS: Morphine 2 MG/ML Syringe IV (02:58)
--- NOTE | 2020-09-30 05:10 | EKG12_ITS ---
Test Reason : AM EKG Blood Pressure : / mmHG Vent. Rate : 093 BPM Atrial Rate : 093 BPM P-R Int : 196 ms QRS Dur : 096 ms QT Int : 342 ms P-R-T Axes : 022 002 064 degrees QTc Int : 425 ms Normal sinus rhythm ST & T wave abnormality, consider anterior ischemia Abnormal ECG Confirmed by STANLEY MORROW, KEVEN ([id number]), editor sound CHANDRA QUICK ([id number]) on 10/01/2020 1:22:21 PM Referred By: ALDA Confirmed By:KEVEN ANGEL MD
[2020-09-30 05:13] LABS: Absolute Lymphocyte Count 0.12 X10^3/uL (0.83-4.51); Absolute Neutrophil Count 3.2 X10^3/uL (2.0-7.7); Basophil# 0.02 X10^3/uL; Basophil% 0.5 % (0-1); Eosinophil# 0.01 X10^3/uL; Eosinophils% 0.2 % (0-5); Hematocrit 32.2 % (40-54); Lymphocyte # 0.12 X10^3/ul (0.83-4.51); Mean Corp Hgb Conc 34.2 g/dL (32-36); Mean Corpuscular Hgb 35.3 pg (27.0-32.0); Mean Corpuscular Volume 103.2 fL (80-94); Mean Platelet Vol. 9.1 fl (6.2-12.0); Monocyte# 0.64 X10^3/uL; Monocyte% 15.9 % (0-10); NRBC Flagged by Analyzer 1.2 % (0-5); Neutrophil % 79.7 % (47-70); POSITIVE COUNT YES; POSITIVE DIFFERENTIAL YES; POSITIVE MORPHOLOGY YES; Platelet Count 73 K/mm3 (150-450); RBC Distribution Width CV 12.3 % (11.6-14.6); RBC Distribution Width SD 46.6 fl (35.1-43.9); Red Blood Count 3.12 M/mm3 (4.6-6.2)
[2020-09-30 05:14] LABS: Differential Indicated SCAN CRITERIA MET
[2020-09-30 05:25] LABS: International Normalized Ratio 1.2; Prothrombin Time (Protime)PT. 14.7 SECONDS (11.7-14.9)
[2020-09-30 05:36] LABS: AST(SGOT) 44 U/L (15-37); Alanine Aminotransfer ALT/SGPT 31 U/L (16-61); Albumin, Serum 2.9 g/dL (3.2-5.0); Alkaline Phosphatase 58 U/L (45-117); Anion Gap 14 (5-15); BUN 18 mg/dL (7-18); BUN/Creat Ratio 12.5 RATIO (10-20); Calcium,Total 9.8 mg/dL (8.5-10.1); Chloride 95 mmol/L (98-107); Creatinine, Serum 1.44 mg/dL (0.70-1.30); EST Glomerular Filtration Rate 51 mL/min (>60); Est Glom Filt Rate - Afr Amer 62 mL/min (>60); Estimated Creatinine Clearance 50.84 ml/min; Glucose 115 mg/dL (74-106); Lipase 1499 U/L (73-393); Magnesium 2.2 mg/dL (1.6-2.6); Potassium 3.3 mmol/L (3.5-5.1); Protein, Total 5.9 g/dL (6.4-8.2); Sodium Level 130 mmol/L (136-145)
--- NOTE | 2020-09-30 05:55 | EKG12_ITS ---
Test Reason : REPEAT Blood Pressure : / mmHG Vent. Rate : 102 BPM Atrial Rate : 102 BPM P-R Int : 194 ms QRS Dur : 100 ms QT Int : 318 ms P-R-T Axes : 014 002 114 degrees QTc Int : [address] & T wave abnormality, consider anterolateral ischemia Abnormal ECG Confirmed by STANLEY MORROW, KEVEN ([id number]), manager editorial CHANDRA QUICK ([id number]) on 10/01/2020 12:57:33 PM Referred By: PATI Confirmed By:KEVEN ANGEL MD
[2020-09-30] MEDS: Lactated Ringers 1,000 ML 125 ML IV ×2 (06:41→11:11)
[2020-09-30] MEDS: 0.9% Saline Lock 10 ML Syringe IV (08:25)
[2020-09-30] MEDS: LORazepam 2 MG/ML Syringe IV (08:25)
[2020-09-30] MEDS: Heparin Injection (Vial) 5,000 UNIT/ML VIAL 5000 UNIT SC ×2 (08:26→22:27)
[2020-09-30] MEDS: Lactated Ringers 1,000 ML 999 ML IV (09:30)
--- NOTE | 2020-09-30 09:30 | NURSING ---
Physician found patient unresponsive in room. [employer] called. Transfer to ICU
--- NOTE | 2020-09-30 09:34 | EKG12_ITS ---
Test Reason : Blood Pressure : / mmHG Vent. Rate : 089 BPM Atrial Rate : 089 BPM P-R Int : 206 ms QRS Dur : 100 ms QT Int : 368 ms P-R-T Axes : 028 -01 104 degrees QTc Int : 447 ms Normal sinus rhythm Nonspecific ST and T wave abnormality Abnormal ECG Confirmed by STANLEY MORROW, KEVEN ([id number]), film or videotape editor CHANDRA QUICK ([id number]) on 10/01/2020 1:20:35 PM Referred By: LILLY Confirmed By:KEVEN ANGEL MD
--- NOTE | 2020-09-30 09:50 | NURSING ---
called report to thierry SORIANO in ICU
--- NOTE | 2020-09-30 09:55 | CPS ---
Critical ABG value verified times two.Hand delivered results to . Verified by read back.
--- NOTE | 2020-09-30 10:31 | PN.HOSP_ITS ---
Subjective Subjective This 69-year-old 1 gentleman admitted yesterday with abdominal pain, withdrawal symptoms with diagnosis of alcoholic pancreatitis and alcohol withdrawal syndrome. During my morning round today, I found him unresponsive, hypotensive with agonal/labored breathing. I called the emergency response team when patient had pulse 89 bpm, low volume blood pressure 86/41, glucose was normal, EKG normal sinus rhythm at [address]-T changes. ABG shows 7.2 0/54/77 on 2 L of oxygen. 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 Objective Data Objective Data Vital Signs: Vital Signs Temp Pulse Resp BP Pulse Ox 97.4 F L 87 18 114/50 L 100 09/30/20 10:10 09/30/20 10:30 09/30/20 10:30 09/30/20 10:30 09/30/20 10:30 Oxygen Flow Rate (L/min) 2 Oxygen Delivery Method Nasal Cannula Weight: 264 lb 7 oz Body Mass Index (BMI) 36.8 Intake & Output: Intake and Output for Last 24 Hours 09/28/20 09/29/20 09/30/20 23:59 23:59 23:59 Intake Total 2460 / 2460 2415.5933 / 2415.5933 Output Total 100 / 100 130 / 130 Balance 2360 / 2360 2285.5933 / 2285.5933 Lab / Micro Data Result Diagrams: 09/30/20 04:56 09/30/20 04:56 Labs: Laboratory Results - last 24 hr 09/29/20 09/29/20 09/29/20 17:30 17:30 17:30 WBC 7.9 RBC 3.84 L Hgb 13.6 Hct 40.2 MCV 104.7 H MCH 35.4 H MCHC 33.8 RDW Std Deviation 47.2 H RDW Coeff of Willy 12.2 Plt Count 103 L MPV 9.5 Immature Gran % (Auto) 1.300 H Neut % (Auto) 85.7 H Lymph % (Auto) 4.8 L Harding % (Auto) 7.7 Eos % (Auto) 0.1 Baso % (Auto) 0.4 Absolute Neuts (auto) 6.8 Absolute Lymphs (auto) 0.38 L Nucleated RBC % 0.6 Differential Comment SCANNED Diff Path Review PT 14.3 INR 1.2 APTT 25.8 D-Dimer Quant (PE/DVT) 9.19 H* Sodium 127 L Potassium 2.8 L Chloride 89 L Carbon Dioxide 13.0 L Anion Gap 25 H BUN 13 Creatinine 1.50 H Estim Creat Clear Calc 48.81 Est GFR (MDRD) Af Amer 59 L Est GFR (MDRD) Non-Af 49 L BUN/Creatinine Ratio 8.7 L Glucose 125 H Hemoglobin A1c Lactic Acid Calcium 10.7 H Phosphorus Magnesium Total Bilirubin 1.50 H AST 57 H ALT 38 Alkaline Phosphatase 68 Total Creatine Kinase Troponin I < 0.015 B-Natriuretic Peptide Total Protein 7.0 Albumin 3.6 Globulin 3.4 Albumin/Globulin Ratio 1.1 Lipase TSH Urine Color Urine Clarity Urine pH Ur Specific [place] Urine Protein Urine Glucose (UA) Urine Ketones Urine Occult Blood Urine Nitrite Urine Bilirubin Urine Urobilinogen Ur Leukocyte Esterase Urine RBC Urine WBC Ur Squamous Epith Cells Urine Bacteria Urine Mucus Urine Opiates Screen Urine Methadone Screen Ur Barbiturates Screen Ur Phencyclidine Scrn Ur Amphetamines Screen U Methamphetamin-MDMA U Benzodiazepines Scrn Urine Cocaine Screen U Cannabinoids Screen Ur Drug Screen Comment Ethyl Alcohol 09/29/20 09/29/20 09/29/20 17:30 17:30 17:58 WBC RBC Hgb Hct MCV MCH MCHC RDW Std Deviation RDW Coeff of Willy Plt Count MPV Immature Gran % (Auto) Neut % (Auto) Lymph % (Auto) [place] % (Auto) Eos % (Auto) Baso % (Auto) Absolute Neuts (auto) Absolute Lymphs (auto) Nucleated RBC % Differential Comment Diff Path Review PT INR APTT D-Dimer Quant (PE/DVT) Sodium Potassium Chloride Carbon Dioxide Anion Gap BUN Creatinine Estim Creat Clear Calc Est GFR (MDRD) Af Amer Est GFR (MDRD) Non-Af BUN/Creatinine Ratio Glucose Hemoglobin A1c Lactic Acid Calcium Phosphorus Magnesium 1.6 Total Bilirubin AST ALT Alkaline Phosphatase Total Creatine Kinase Troponin I B-Natriuretic Peptide 19.3 Total Protein Albumin Globulin Albumin/Globulin Ratio Lipase 3860 H TSH Urine Color Urine Clarity Urine pH Ur Specific [place] Urine Protein Urine Glucose (UA) Urine Ketones Urine Occult Blood Urine Nitrite Urine Bilirubin Urine Urobilinogen Ur Leukocyte Esterase Urine RBC Urine WBC Ur Squamous Epith Cells Urine Bacteria Urine Mucus Urine Opiates Screen Urine Methadone Screen Ur Barbiturates Screen Ur Phencyclidine Scrn Ur Amphetamines Screen U Methamphetamin-MDMA U Benzodiazepines Scrn Urine Cocaine Screen U Cannabinoids Screen Ur Drug Screen Comment Ethyl Alcohol 28.0 09/29/20 09/29/20 09/29/20 18:20 22:25 22:25 WBC RBC Hgb Hct MCV MCH MCHC RDW Std Deviation RDW Coeff of Willy Plt Count MPV Immature Gran % (Auto) Neut % (Auto) Lymph % (Auto) [place] % (Auto) Eos % (Auto) Baso % (Auto) Absolute Neuts (auto) Absolute Lymphs (auto) Nucleated RBC % Differential Comment Diff Path Review PT INR APTT D-Dimer Quant (PE/DVT) Sodium Potassium Chloride Carbon Dioxide Anion Gap BUN Creatinine Estim Creat Clear Calc Est GFR (MDRD) Af Amer Est GFR (MDRD) Non-Af BUN/Creatinine Ratio Glucose Hemoglobin A1c 4.4 Lactic Acid 5.6 H* Calcium Phosphorus 1.3 L Magnesium Total Bilirubin AST ALT Alkaline Phosphatase Total Creatine Kinase 164 Troponin I < 0.015 B-Natriuretic Peptide Total Protein Albumin Globulin Albumin/Globulin Ratio Lipase TSH 1.38 Urine Color Urine Clarity Urine pH Ur Specific [place] Urine Protein Urine Glucose (UA) Urine Ketones Urine Occult Blood Urine Nitrite Urine Bilirubin Urine Urobilinogen Ur Leukocyte Esterase Urine RBC Urine WBC Ur Squamous Epith Cells Urine Bacteria Urine Mucus Urine Opiates Screen Urine Methadone Screen Ur Barbiturates Screen Ur Phencyclidine Scrn Ur Amphetamines Screen U Methamphetamin-MDMA U Benzodiazepines Scrn Urine Cocaine Screen U Cannabinoids Screen Ur Drug Screen Comment Ethyl Alcohol 09/29/20 09/29/20 09/29/20 22:25 22:45 22:45 WBC RBC Hgb Hct MCV MCH MCHC RDW Std Deviation RDW Coeff of Willy Plt Count MPV Immature Gran % (Auto) Neut % (Auto) Lymph % (Auto) [place] % (Auto) Eos % (Auto) Baso % (Auto) Absolute Neuts (auto) Absolute Lymphs (auto) Nucleated RBC % Differential Comment Diff Path Review PT INR APTT D-Dimer Quant (PE/DVT) Sodium Potassium Chloride Carbon Dioxide Anion Gap BUN Creatinine Estim Creat Clear Calc Est GFR (MDRD) Af Amer Est GFR (MDRD) Non-Af BUN/Creatinine Ratio Glucose Hemoglobin A1c Lactic Acid 1.9 Calcium Phosphorus Magnesium Total Bilirubin AST ALT Alkaline Phosphatase Total Creatine Kinase Troponin I B-Natriuretic Peptide Total Protein Albumin Globulin Albumin/Globulin Ratio Lipase TSH Urine Color Yellow Urine Clarity Sl. Cloudy Urine pH 6.5 Ur Specific [place] 1.005 Urine Protein 100 H Urine Glucose (UA) Normal Urine Ketones 50 H Urine Occult Blood 50 H Urine Nitrite Negative Urine Bilirubin 3 H Urine Urobilinogen 1 H Ur Leukocyte Esterase 25 H Urine RBC 0-5 SEEN Urine WBC 0-5 SEEN Ur Squamous Epith Cells 0 SEEN Urine Bacteria 0 SEEN Urine Mucus 0 SEEN Urine Opiates Screen NEGATIVE Urine Methadone Screen NEGATIVE Ur Barbiturates Screen NEGATIVE Ur Phencyclidine Scrn NEGATIVE Ur Amphetamines Screen NEGATIVE U Methamphetamin-MDMA NEGATIVE U Benzodiazepines Scrn NEGATIVE Urine Cocaine Screen NEGATIVE U Cannabinoids Screen NEGATIVE Ur Drug Screen Comment Ethyl Alcohol 09/30/20 09/30/20 09/30/20 01:35 04:56 04:56 WBC 4.0 L RBC 3.12 L Hgb 11.0 L Hct 32.2 L MCV 103.2 H MCH 35.3 H MCHC 34.2 RDW Std Deviation 46.6 H RDW Coeff of Willy 12.3 Plt Count 73 L MPV 9.1 Immature Gran % (Auto) 0.700 Neut % (Auto) 79.7 H Lymph % (Auto) 3.0 L [place] % (Auto) 15.9 H Eos % (Auto) 0.2 Baso % (Auto) 0.5 Absolute Neuts (auto) 3.2 Absolute Lymphs (auto) 0.12 L Nucleated RBC % 1.2 Differential Comment Diff Path Review May foll PT 14.7 INR 1.2 APTT D-Dimer Quant (PE/DVT) Sodium Potassium Chloride Carbon Dioxide Anion Gap BUN Creatinine Estim Creat Clear Calc Est GFR (MDRD) Af Amer Est GFR (MDRD) Non-Af BUN/Creatinine Ratio Glucose Hemoglobin A1c Lactic Acid Calcium Phosphorus Magnesium Total Bilirubin AST ALT Alkaline Phosphatase Total Creatine Kinase Troponin I < 0.015 B-Natriuretic Peptide Total Protein Albumin Globulin Albumin/Globulin Ratio Lipase TSH Urine Color Urine Clarity Urine pH Ur Specific [place] Urine Protein Urine Glucose (UA) Urine Ketones Urine Occult Blood Urine Nitrite Urine Bilirubin Urine Urobilinogen Ur Leukocyte Esterase Urine RBC Urine WBC Ur Squamous Epith Cells Urine Bacteria Urine Mucus Urine Opiates Screen Urine Methadone Screen Ur Barbiturates Screen Ur Phencyclidine Scrn Ur Amphetamines Screen U Methamphetamin-MDMA U Benzodiazepines Scrn Urine Cocaine Screen U Cannabinoids Screen Ur Drug Screen Comment Ethyl Alcohol 09/30/20 09/30/20 04:56 04:56 WBC RBC Hgb Hct MCV MCH MCHC RDW Std Deviation RDW Coeff of Willy Plt Count MPV Immature Gran % (Auto) Neut % (Auto) Lymph % (Auto) [place] % (Auto) Eos % (Auto) Baso % (Auto) Absolute Neuts (auto) Absolute Lymphs (auto) Nucleated RBC % Differential Comment Diff Path Review PT INR APTT D-Dimer Quant (PE/DVT) Sodium 130 L Potassium 3.3 L Chloride 95 L Carbon Dioxide 21.0 Anion Gap 14 BUN 18 Creatinine 1.44 H Estim Creat Clear Calc 50.84 Est GFR (MDRD) Af Amer 62 Est GFR (MDRD) Non-Af 51 L BUN/Creatinine Ratio 12.5 Glucose 115 H Hemoglobin A1c Lactic Acid Calcium 9.8 Phosphorus Magnesium 2.2 Total Bilirubin 1.70 H AST 44 H ALT 31 Alkaline Phosphatase 58 Total Creatine Kinase Troponin I < 0.015 B-Natriuretic Peptide Total Protein 5.9 L Albumin 2.9 L Globulin 3.0 Albumin/Globulin Ratio 1.0 Lipase 1499 H TSH Urine Color Urine Clarity Urine pH Ur Specific [place] Urine Protein Urine Glucose (UA) Urine Ketones Urine Occult Blood Urine Nitrite Urine Bilirubin Urine Urobilinogen Ur Leukocyte Esterase Urine RBC Urine WBC Ur Squamous Epith Cells Urine Bacteria Urine Mucus Urine Opiates Screen Urine Methadone Screen Ur Barbiturates Screen Ur Phencyclidine Scrn Ur Amphetamines Screen U Methamphetamin-MDMA U Benzodiazepines Scrn Urine Cocaine Screen U Cannabinoids Screen Ur Drug Screen Comment Ethyl Alcohol Micro: Microbiology 09/29/20 19:35 Nasal Secretion SARS-CoV-2 Antigen (Rapid) - Final Radiography Diagnostic Testing: Radiology Impression Chest/Abdomen/Pelvis CTA 09/29/20 18:01 IMPRESSION: 1. No CT evidence of pulmonary embolism. 2. Acute pancreatitis without pseudocyst, abscess, or necrotizing pancreatitis. Electronically Signed: Jerry Perry MD at 18:59 EDT Tel , Service support , Chest X-Ray 09/29/20 18:22 IMPRESSION: Normal x-ray examination of the chest. Electronically Signed: Jerry Perry MD at 18:39 EDT Tel , Service support , Physical Exam Narrative General: Unresponsive to touch and verbal command. HEENT: Atraumatic, pupils bilateral sluggish reacting, Normocephalic Oral: No Gingival or Mucosal Lesions/ Ulcerations Neck: Supple, No JVD, Negative Carotid Bruits Lungs: Air entry very diminished in bilateral lungs. RR 12, labored breathing, no crepitation/rhonchi Cardiovascular: Regular rate, Regular Rhythm, low volume, Normal S1, Normal S2, No murmurs Abdomen: Bowel Sounds sluggish. No tenderness or distended. : No renal angle tenderness. No suprapubic tenderness. Extremities: No edema, Capillary Refill Less than 3 Seconds Skin: Dirty and mud staining toes. Musculoskeletal: No Tenderness to Palpation of Joints or Extremities Neurological: Unresponsive neuro cannot be evaluated accurately. Psych/Mental Status: Normal Affect, Appropriate. Assessment & Plan Assessment/Plan (1) Acute hyperactive alcohol withdrawal delirium: (2) Lactic acidosis: (3) Acute pancreatitis: PLAN: This is a 69 years old male patient who was admitted to PCU from ER because of fall and difficulty ambulating, found to have acute pancreatitis on CT scan abdomen with elevated lipase and also found to have electrolyte abnormalities, lactic acidosis and alcohol withdrawal. #[address] abdomen showed acute pancreatitis without pseudocyst abscess or necrotizing pancreatitis. Lipase is elevated. Patient admitted to PCU but transferred to ICU because of unresponsive episode. IV fluid, electrolyte monitoring and replacement. #2 hyponatremia/hypokalemia/hypophosphatemia and lactic acidosis; metabolic derangement from pancreatitis and chronic alcoholism: Due to malnutrition and alcoholism, pancreatitis and dehydration probably lactic acidosis. Magnesium is normal. Serum phosphate and potassium are low. Getting replacement. Chest x- ray no acute finding. I do not suspect severe sepsis or sepsis. UA no acute infection. COVID-19 rapid antigen negative. No indication for antibiotic treatment for now. Follow-up blood culture #3 unresponsive, hypotension and acute respiratory failure episode secondary to IV lorazepam: Patient has been getting IV Ativan as per CIWA protocol and CIWA score has been 8-10 as per nursing staff. Patient got last dose around 8:30 AM and fall unresponsive, labored/agonal breathing and hypotensive. Emergency management as per protocol, IV fluid Ringer lactate, was done and patient transferred to ICU for further management. #4 acute alcohol withdrawal: Continue CIWA protocol, IV thiamine and folic acid supplement. Discontinue Phenergan and hold lorazepam and other sedative medications. #5 Acute kidney injury: Due to dehydration, prerenal. Unknown baseline kidney function. Mild improvement in creatinine. #6 paroxysmal atrial fibrillation: He is not on anticoagulation. Patient on acebutolol with holding parameters patient hypotensive. #7 hypertension: Currently hypotensive. #8 CODE STATUS: Full code. #9 DVT prophylaxis: Subcu heparin. Total time of the visit including total time spent in counseling or coordination of care, (more than 50% of the total time, spent in obtaining medical information from nurses and other ancillary care providers,explaining to the patient about labs, imaging, diagnosis and management), during rapid/emergency response team, resuscitation, review of labs and imaging is 60 minutes Clinical Impression(s) from Imaging Studies Chest/Abdomen/Pelvis CTA 09/29/20 18:01 IMPRESSION: 1. No CT evidence of pulmonary embolism. 2. Acute pancreatitis without pseudocyst, abscess, or necrotizing pancreatitis. Electronically Signed: Jerry Perry MD at 18:59 EDT Tel , Service support , Chest X-Ray 09/29/20 18:22 IMPRESSION: Normal x-ray examination of the chest. [facility] Hospitalists' Procedures Procedures: [address] Critial Care 1st Hr
[2020-09-30 11:39] LABS: Allen Test Positive; Base Excess -7 mmol/L (-2 to +2); Bicarbonate 21.2 mmol/L (22-26); Blood Gas Specimen Type ART; O2 Delivery Device Cannula; PO2 77 mmHG (75-100); SITE L Radial; SO2 92 % (95-99); Total Carbon Dioxide 23 mmol/L; pCO2 54.3 mmHg (35-45)
[2020-09-30 11:39] LABS: Bedside Glucose 140 mg/dL (70-110)
[2020-09-30 13:50] LABS: Absolute Lymphocyte Count 0.24 X10^3/uL (0.83-4.51); Absolute Neutrophil Count 2.2 X10^3/uL (2.0-7.7); Basophil# 0.02 X10^3/uL; Basophil% 0.6 % (0-1); Eosinophil# 0.01 X10^3/uL; Eosinophils% 0.3 % (0-5); Hematocrit 32.3 % (40-54); Hemoglobin 10.9 g/dL (13.0-16.5); Lymphocyte # 0.24 X10^3/ul (0.83-4.51); Lymphocyte % 7.2 % (19-41); Mean Corp Hgb Conc 33.7 g/dL (32-36); Mean Corpuscular Hgb 35.2 pg (27.0-32.0); Mean Corpuscular Volume 104.2 fL (80-94); Mean Platelet Vol. 8.8 fl (6.2-12.0); Monocyte# 0.81 X10^3/uL; Monocyte% 24.4 % (0-10); NRBC Flagged by Analyzer 0.9 % (0-5); Neutrophil # 2.19 X10^3/uL (2.7-7.7); POSITIVE COUNT YES; POSITIVE DIFFERENTIAL YES; POSITIVE MORPHOLOGY YES; Platelet Count 60 K/mm3 (150-450); RBC Distribution Width CV 12.4 % (11.6-14.6); RBC Distribution Width SD 47.3 fl (35.1-43.9); White Blood Count 3.3 K/mm3 (4.4-11.0)
[2020-09-30 13:51] LABS: Differential Indicated SCAN CRITERIA MET
[2020-09-30 14:06] LABS: Anion Gap 9 (5-15); BUN 18 mg/dL (7-18); BUN/Creat Ratio 15.7 RATIO (10-20); Chloride 96 mmol/L (98-107); Creatinine, Serum 1.15 mg/dL (0.70-1.30); EST Glomerular Filtration Rate 67 mL/min (>60); Est Glom Filt Rate - Afr Amer 81 mL/min (>60); Estimated Creatinine Clearance 63.66 ml/min; Glucose 132 mg/dL (74-106); Potassium 3.2 mmol/L (3.5-5.1); Sodium Level 130 mmol/L (136-145)
--- NOTE | 2020-09-30 14:06 | CON.PCM.CC_ITS ---
Assessment & Plan Assessment/Plan (1) Acute pancreatitis: (2) Encephalopathy: PLAN: RECOMMENDATIONS: 1. Discontinue morphine and scheduled Ativan. 2. Place patient on BiPAP and obtain repeat arterial blood gas in [address] head. 4. Continue fluids and trend lipase. IMPRESSIONS: 1. Acute hypercarbic respiratory failure Most likely secondary to polypharmacy in the setting of administration of morphine and Ativan, leading to depression and respiratory drive and subsequent CO2 retention. Avoid sedating medications for now. Place patient on BiPAP and obtain repeat arterial blood gas in 1 hour. 2. Metabolic encephalopathy Likely secondary to acute CO2 retention as noted above. However, will obtain CT head as well to rule out for possible CVA, especially in the setting of hypotension. 3. Acute alcohol withdrawal Recommend holding scheduled Ativan for now, pending improvement in mentation. 4. Acute pancreatitis likely secondary to alcohol Continue current supportive measures including IV fluids. Continue to trend lipase. 5. Pancytopenia Most likely secondary to chronic alcohol dependency. 6. Hyponatremia/hypokalemia/hypochloremia Improving with volume expansion. Continue to monitor and replete electrolytes as needed. 7. Acute kidney injury Most likely prerenal in etiology. Creatinine has improved with volume expansion. Continue to monitor urine output. No current indication for renal replacement therapy. TIME: 35 minutes of critical care time, independent of procedures, was spent addressing the patient's acute hypercarbic respiratory failure, metabolic encephalopathy, acute alcohol withdrawal, acute pancreatitis, pancytopenia, acute kidney injury, review of all data and collaboration with the care team. ([id number]) HPI Consult Data Date of Consult: 10/01/20 HPI Narrative Reason for Consultation: Encephalopathy, acute hypercarbic respiratory failure HPI Narrative: The patient is a 69-year-old male, with a history as outlined below, who presented to the emergency department on September 29 with syncope. History pertinent to the patient's hospitalization was obtained primarily via chart review, as the patient is too encephalopathic to provide any additional details. The patient does have a history of chronic alcohol dependency along with paroxysmal atrial fibrillation. On presentation to the emergency department, the patient was noted to be afebrile with a blood pressure of 97/54 mmHg. Initial laboratory evaluation revealed a normal white blood cell count along with evidence of thrombocytopenia with a platelet count of 103,000. D-dimer was elevated to 9.2. Chemistry profile was notable for a sodium of 127, potassium of 2.8, chloride of 89, bicarbonate of 13 and creatinine of 1.5. Lactate was elevated to 5.6. Phosphorus level was low at 1.3. Total bilirubin was increased to 1.5. Troponin was negative. Lipase was elevated to 3860. CT chest abdomen and pelvis revealed evidence of acute pancreatitis. The patient was initially admitted to the progressive care unit for further management. On the morning of September 30, the patient was noted to be unresponsive and hypotensive with agonal respirations. The patient received supplemental IV fluids and an arterial blood gas was obtained which revealed a pH of 7.2 with a corresponding PCO2 of 54. The patient was subsequently transferred to the medical intensive care unit. The patient is currently documented to be overall net +5.7 L for the hospital admission. Prior echocardiogram from October 2019 revealed stage I diastolic dysfunction. Of note, it does appear that the patient received 2 mg of Ativan at 0400 and 2mg of IV morphine at 0300 this [facility]. [facility] Medical History (Updated 09/30/20 @ 14:[address] Justin Caraballo, DO) Asthma Dysmetabolic syndrome X GERD (gastroesophageal reflux disease) History of paroxysmal supraventricular tachycardia Hyperlipidemia Hypertension Obesity Paroxysmal atrial fibrillation Home Medications albuterol sulfate 2 puff INHALATION Q4H PRN PRN 07/24/16 [History Last Taken Unknown] atorvastatin 20 mg PO QHS 07/24/16 [History Last Taken 09/28/20] aspirin 325 mg tablet 325 mg PO DAILY tab 07/31/19 [History Last Taken 09/29/20] losartan 100 mg tablet 100 mg PO DAILY #90 tab 03/18/20 [Rx Last Taken 09/29/20] azelastine 137 mcg (0.1 %) nasal spray aerosol 1 spray INTRANASAL BID PRN 05/06/20 [History Last Taken Unknown] amlodipine 10 mg tablet 10 mg PO DAILY #30 tab 07/01/20 [Rx Last Taken 09/29/20] acebutolol 200 mg PO BID 09/29/20 [History Last Taken 09/29/20] Allergy/AdvReac Type Severity Reaction Status Date / Time No Known Allergies Allergy Verified 09/29/20 17:46 environmental allergies Allergy Intermediate eyes Uncoded 09/29/20 17:46 water, asthma Family History Mother CAD (coronary artery disease) Arthritis Sister , MVA Motor vehicle accident Grandfather Throat cancer Surgical History 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) Social History Smoking Status: Never smoker alcohol intake: current alcohol intake frequency: 0-2 drinks per day substance use type: does not use caffeine: No ROS Review of Systems ROS Unobtainable: due to encephalopathy Physical Exam Const no apparent distress Constitutional Narrative: Opens eyes to verbal stimulation but speech is incoherent General Appearance: lethargic HEENT normocephalic and head/scalp atraumatic Eyes PERRL Neck supple General: trachea midline Resp normal respiratory effort and no use of accessory muscles Auscultation: wheezes and diminished lung sounds Cardio regular rate and regular rhythm GI normal to inspection, nondistended, normoactive bowel sounds Extremity no clubbing, cyanosis or edema Skin no rashes or lesions noted Neuro Sensorium / Orientation: lethargic and somnolent Lab / Micro Data Result Diagrams: 10/01/20 04:30 10/01/20 04:30 Labs: Laboratory Results - last 24 hr 09/29/20 09/29/20 09/29/20 17:30 17:30 17:30 WBC 7.9 RBC 3.84 L Hgb 13.6 Hct 40.2 MCV 104.7 H MCH 35.4 H MCHC 33.8 RDW Std Deviation 47.2 H RDW Coeff of Willy 12.2 Plt Count 103 L MPV 9.5 Immature Gran % (Auto) 1.300 H Neut % (Auto) 85.7 H Lymph % (Auto) 4.8 L Wetzel % (Auto) 7.7 Eos % (Auto) 0.1 Baso % (Auto) 0.4 Absolute Neuts (auto) 6.8 Absolute Lymphs (auto) 0.38 L Nucleated RBC % 0.6 Differential Comment SCANNED Diff Path Review PT 14.3 INR 1.2 APTT 25.8 D-Dimer Quant (PE/DVT) 9.19 H* Sodium 127 L Potassium 2.8 L Chloride 89 L Carbon Dioxide 13.0 L Anion Gap 25 H BUN 13 Creatinine 1.50 H Estim Creat Clear Calc 48.81 Est GFR (MDRD) Af Amer 59 L Est GFR (MDRD) Non-Af 49 L BUN/Creatinine Ratio 8.7 L Glucose 125 H Hemoglobin A1c Lactic Acid Calcium 10.7 H Phosphorus Magnesium Total Bilirubin 1.50 H AST 57 H ALT 38 Alkaline Phosphatase 68 Total Creatine Kinase Troponin I < 0.015 B-Natriuretic Peptide Total Protein 7.0 Albumin 3.6 Globulin 3.4 Albumin/Globulin Ratio 1.1 Lipase TSH Urine Color Urine Clarity Urine pH Ur Specific [place] Urine Protein Urine Glucose (UA) Urine Ketones Urine Occult Blood Urine Nitrite Urine Bilirubin Urine Urobilinogen Ur Leukocyte Esterase Urine RBC Urine WBC Ur Squamous Epith Cells Urine Bacteria Urine Mucus Urine Opiates Screen Urine Methadone Screen Ur Barbiturates Screen Ur Phencyclidine Scrn Ur Amphetamines Screen U Methamphetamin-MDMA U Benzodiazepines Scrn Urine Cocaine Screen U Cannabinoids Screen Ur Drug Screen Comment Ethyl Alcohol POC Glucose 09/29/20 09/29/20 09/29/20 17:30 17:30 17:58 WBC RBC Hgb Hct MCV MCH MCHC RDW Std Deviation RDW Coeff of Willy Plt Count MPV Immature Gran % (Auto) Neut % (Auto) Lymph % (Auto) [place] % (Auto) Eos % (Auto) Baso % (Auto) Absolute Neuts (auto) Absolute Lymphs (auto) Nucleated RBC % Differential Comment Diff Path Review PT INR APTT D-Dimer Quant (PE/DVT) Sodium Potassium Chloride Carbon Dioxide Anion Gap BUN Creatinine Estim Creat Clear Calc Est GFR (MDRD) Af Amer Est GFR (MDRD) Non-Af BUN/Creatinine Ratio Glucose Hemoglobin A1c Lactic Acid Calcium Phosphorus Magnesium 1.6 Total Bilirubin AST ALT Alkaline Phosphatase Total Creatine Kinase Troponin I B-Natriuretic Peptide 19.3 Total Protein Albumin Globulin Albumin/Globulin Ratio Lipase 3860 H TSH Urine Color Urine Clarity Urine pH Ur Specific [place] Urine Protein Urine Glucose (UA) Urine Ketones Urine Occult Blood Urine Nitrite Urine Bilirubin Urine Urobilinogen Ur Leukocyte Esterase Urine RBC Urine WBC Ur Squamous Epith Cells Urine Bacteria Urine Mucus Urine Opiates Screen Urine Methadone Screen Ur Barbiturates Screen Ur Phencyclidine Scrn Ur Amphetamines Screen U Methamphetamin-MDMA U Benzodiazepines Scrn Urine Cocaine Screen U Cannabinoids Screen Ur Drug Screen Comment Ethyl Alcohol 28.0 POC Glucose 09/29/20 09/29/20 09/29/20 18:20 22:25 22:25 WBC RBC Hgb Hct MCV MCH MCHC RDW Std Deviation RDW Coeff of Willy Plt Count MPV Immature Gran % (Auto) Neut % (Auto) Lymph % (Auto) [place] % (Auto) Eos % (Auto) Baso % (Auto) Absolute Neuts (auto) Absolute Lymphs (auto) Nucleated RBC % Differential Comment Diff Path Review PT INR APTT D-Dimer Quant (PE/DVT) Sodium Potassium Chloride Carbon Dioxide Anion Gap BUN Creatinine Estim Creat Clear Calc Est GFR (MDRD) Af Amer Est GFR (MDRD) Non-Af BUN/Creatinine Ratio Glucose Hemoglobin A1c 4.4 Lactic Acid 5.6 H* Calcium Phosphorus 1.3 L Magnesium Total Bilirubin AST ALT Alkaline Phosphatase Total Creatine Kinase 164 Troponin I < 0.015 B-Natriuretic Peptide Total Protein Albumin Globulin Albumin/Globulin Ratio Lipase TSH 1.38 Urine Color Urine Clarity Urine pH Ur Specific [place] Urine Protein Urine Glucose (UA) Urine Ketones Urine Occult Blood Urine Nitrite Urine Bilirubin Urine Urobilinogen Ur Leukocyte Esterase Urine RBC Urine WBC Ur Squamous Epith Cells Urine Bacteria Urine Mucus Urine Opiates Screen Urine Methadone Screen Ur Barbiturates Screen Ur Phencyclidine Scrn Ur Amphetamines Screen U Methamphetamin-MDMA U Benzodiazepines Scrn Urine Cocaine Screen U Cannabinoids Screen Ur Drug Screen Comment Ethyl Alcohol POC Glucose 09/29/20 09/29/20 09/29/20 22:25 22:45 22:45 WBC RBC Hgb Hct MCV MCH MCHC RDW Std Deviation RDW Coeff of Willy Plt Count MPV Immature Gran % (Auto) Neut % (Auto) Lymph % (Auto) [place] % (Auto) Eos % (Auto) Baso % (Auto) Absolute Neuts (auto) Absolute Lymphs (auto) Nucleated RBC % Differential Comment Diff Path Review PT INR APTT D-Dimer Quant (PE/DVT) Sodium Potassium Chloride Carbon Dioxide Anion Gap BUN Creatinine Estim Creat Clear Calc Est GFR (MDRD) Af Amer Est GFR (MDRD) Non-Af BUN/Creatinine Ratio Glucose Hemoglobin A1c Lactic Acid 1.9 Calcium Phosphorus Magnesium Total Bilirubin AST ALT Alkaline Phosphatase Total Creatine Kinase Troponin I B-Natriuretic Peptide Total Protein Albumin Globulin Albumin/Globulin Ratio Lipase TSH Urine Color Yellow Urine Clarity Sl. Cloudy Urine pH 6.5 Ur Specific [place] 1.005 Urine Protein 100 H Urine Glucose (UA) Normal Urine Ketones 50 H Urine Occult Blood 50 H Urine Nitrite Negative Urine Bilirubin 3 H Urine Urobilinogen 1 H Ur Leukocyte Esterase 25 H Urine RBC 0-5 SEEN Urine WBC 0-5 SEEN Ur Squamous Epith Cells 0 SEEN Urine Bacteria 0 SEEN Urine Mucus 0 SEEN Urine Opiates Screen NEGATIVE Urine Methadone Screen NEGATIVE Ur Barbiturates Screen NEGATIVE Ur Phencyclidine Scrn NEGATIVE Ur Amphetamines Screen NEGATIVE U Methamphetamin-MDMA NEGATIVE U Benzodiazepines Scrn NEGATIVE Urine Cocaine Screen NEGATIVE U Cannabinoids Screen NEGATIVE Ur Drug Screen Comment Ethyl Alcohol POC Glucose 09/30/20 09/30/20 09/30/20 01:35 04:56 04:56 WBC 4.0 L RBC 3.12 L Hgb 11.0 L Hct 32.2 L MCV 103.2 H MCH 35.3 H MCHC 34.2 RDW Std Deviation 46.6 H RDW Coeff of Willy 12.3 Plt Count 73 L MPV 9.1 Immature Gran % (Auto) 0.700 Neut % (Auto) 79.7 H Lymph % (Auto) 3.0 L [place] % (Auto) 15.9 H Eos % (Auto) 0.2 Baso % (Auto) 0.5 Absolute Neuts (auto) 3.2 Absolute Lymphs (auto) 0.12 L Nucleated RBC % 1.2 Differential Comment Diff Path Review May foll PT 14.7 INR 1.2 APTT D-Dimer Quant (PE/DVT) Sodium Potassium Chloride Carbon Dioxide Anion Gap BUN Creatinine Estim Creat Clear Calc Est GFR (MDRD) Af Amer Est GFR (MDRD) Non-Af BUN/Creatinine Ratio Glucose Hemoglobin A1c Lactic Acid Calcium Phosphorus Magnesium Total Bilirubin AST ALT Alkaline Phosphatase Total Creatine Kinase Troponin I < 0.015 B-Natriuretic Peptide Total Protein Albumin Globulin Albumin/Globulin Ratio Lipase TSH Urine Color Urine Clarity Urine pH Ur Specific [place] Urine Protein Urine Glucose (UA) Urine Ketones Urine Occult Blood Urine Nitrite Urine Bilirubin Urine Urobilinogen Ur Leukocyte Esterase Urine RBC Urine WBC Ur Squamous Epith Cells Urine Bacteria Urine Mucus Urine Opiates Screen Urine Methadone Screen Ur Barbiturates Screen Ur Phencyclidine Scrn Ur Amphetamines Screen U Methamphetamin-MDMA U Benzodiazepines Scrn Urine Cocaine Screen U Cannabinoids Screen Ur Drug Screen Comment Ethyl Alcohol POC Glucose 09/30/20 09/30/20 09/30/20 04:56 04:56 09:24 WBC RBC Hgb Hct MCV MCH MCHC RDW Std Deviation RDW Coeff of Willy Plt Count MPV Immature Gran % (Auto) Neut % (Auto) Lymph % (Auto) [place] % (Auto) Eos % (Auto) Baso % (Auto) Absolute Neuts (auto) Absolute Lymphs (auto) Nucleated RBC % Differential Comment Diff Path Review PT INR APTT D-Dimer Quant (PE/DVT) Sodium 130 L Potassium 3.3 L Chloride 95 L Carbon Dioxide 21.0 Anion Gap 14 BUN 18 Creatinine 1.44 H Estim Creat Clear Calc 50.84 Est GFR (MDRD) Af Amer 62 Est GFR (MDRD) Non-Af 51 L BUN/Creatinine Ratio 12.5 Glucose 115 H Hemoglobin A1c Lactic Acid Calcium 9.8 Phosphorus Magnesium 2.2 Total Bilirubin 1.70 H AST 44 H ALT 31 Alkaline Phosphatase 58 Total Creatine Kinase Troponin I < 0.015 B-Natriuretic Peptide Total Protein 5.9 L Albumin 2.9 L Globulin 3.0 Albumin/Globulin Ratio 1.0 Lipase 1499 H TSH Urine Color Urine Clarity Urine pH Ur Specific [place] Urine Protein Urine Glucose (UA) Urine Ketones Urine Occult Blood Urine Nitrite Urine Bilirubin Urine Urobilinogen Ur Leukocyte Esterase Urine RBC Urine WBC Ur Squamous Epith Cells Urine Bacteria Urine Mucus Urine Opiates Screen Urine Methadone Screen Ur Barbiturates Screen Ur Phencyclidine Scrn Ur Amphetamines Screen U Methamphetamin-MDMA U Benzodiazepines Scrn Urine Cocaine Screen U Cannabinoids Screen Ur Drug Screen Comment Ethyl Alcohol POC Glucose 140 H 09/30/20 09/30/20 13:35 13:35 WBC 3.3 L RBC 3.10 L Hgb 10.9 L Hct 32.3 L MCV 104.2 H MCH 35.2 H MCHC 33.7 RDW Std Deviation 47.3 H RDW Coeff of Willy 12.4 Plt Count 60 L MPV 8.8 Immature Gran % (Auto) 1.500 H Neut % (Auto) 66.0 Lymph % (Auto) 7.2 L [place] % (Auto) 24.4 H Eos % (Auto) 0.3 Baso % (Auto) 0.6 Absolute Neuts (auto) 2.2 Absolute Lymphs (auto) 0.24 L Nucleated RBC % 0.9 Differential Comment Diff Path Review PT INR APTT D-Dimer Quant (PE/DVT) Sodium 130 L Potassium 3.2 L Chloride 96 L Carbon Dioxide 25.0 Anion Gap 9 BUN 18 Creatinine 1.15 Estim Creat Clear Calc 63.66 Est GFR (MDRD) Af Amer 81 Est GFR (MDRD) Non-Af 67 BUN/Creatinine Ratio 15.7 Glucose 132 H Hemoglobin A1c Lactic Acid Calcium 9.0 Phosphorus Magnesium Total Bilirubin AST ALT Alkaline Phosphatase Total Creatine Kinase Troponin I B-Natriuretic Peptide Total Protein Albumin Globulin Albumin/Globulin Ratio Lipase TSH Urine Color Urine Clarity Urine pH Ur Specific [place] Urine Protein Urine Glucose (UA) Urine Ketones Urine Occult Blood Urine Nitrite Urine Bilirubin Urine Urobilinogen Ur Leukocyte Esterase Urine RBC Urine WBC Ur Squamous Epith Cells Urine Bacteria Urine Mucus Urine Opiates Screen Urine Methadone Screen Ur Barbiturates Screen Ur Phencyclidine Scrn Ur Amphetamines Screen U Methamphetamin-MDMA U Benzodiazepines Scrn Urine Cocaine Screen U Cannabinoids Screen Ur Drug Screen Comment Ethyl Alcohol POC Glucose Micro: Microbiology 09/29/20 19:35 SARS-CoV-2 Antigen (Rapid) - Final Nasal Secretion ABG Data ABG results: ABG 09/30/20 09:45 Specimen Type ART Sample Site L Radial pH 7.20 L Bicarbonate Actual 21.2 L Total CO2 23 Base Excess -7 L O2 Saturation 92 L ABG pCO2 54.3 H ABG pO2 77 Diony Test Positive O2 Delivery Device Cannula Liter Flow 2.0 Crit Call To/Read Back Yes Radiology Impression Chest/Abdomen/Pelvis CTA 09/29/20 18:01 IMPRESSION: 1. No CT evidence of pulmonary embolism. 2. Acute pancreatitis without pseudocyst, abscess, or necrotizing pancreatitis. Electronically Signed: Jerry Perry MD at 18:59 EDT Tel , Service support , Chest X-Ray 09/29/20 18:22 IMPRESSION: Normal x-ray examination of the chest. Electronically Signed: Jerry Perry MD at 18:39 EDT Tel , Service support , Charges/Coding Procedures Hospitalists Procedures: [id number] Critial Care 1st Hr
[2020-09-30 14:09] LABS: Phosphorus 3.3 mg/dL (2.5-4.9); Platelet Estimate MOD DEC (ADEQ)
--- NOTE | 2020-09-30 14:18 | CT_ITS ---
We are attempting to reach an attending provider to discuss findings. An addendum with communication details will be sent when the communication is complete. STUDY: CT HEAD STROKE PROTOCOL W/O CONTRAST INJECTION REASON FOR EXAM: Male, 69 years old. Encephalopathy RADIATION DOSAGE (If Supplied By Facility): CTDIvol = ( ) mGy, DLP = ( ) mGycm TECHNIQUE: Transaxial CT imaging of the brain was performed without administration of intravenous contrast material. Individualized dose optimization techniques were used for this CT. COMPARISON: No relevant priors. FINDINGS: Normal soft tissue structures. Normal calvarium. There is mild cerebral atrophy with widening of the extra-axial spaces and ventricular dilatation. Normal white matter tracts of the cerebral hemispheres. 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 Normal brainstem. Normal cerebellum. There is no intracranial hemorrhage. There are no findings of an acute ischemic infarction. Normal visualized paranasal sinuses. ASPECT score: CT/STROKE Brain/Head without Cont IMPRESSION: Chronic involutional changes of the brain. Electronically Signed: Jerry Perry MD at 15:23 EDT Tel , Service support ,
--- NOTE | 2020-09-30 15:01 | NURSING ---
Pt's daughter Lynne Garcia, called in for update.
[2020-09-30 15:26] LABS: Allen Test Positive; Base Excess -5 mmol/L (-2 to +2); Bicarbonate 22.1 mmol/L (22-26); Blood Gas Specimen Type ART; Comment 14; FI02 30; O2 Delivery Device BiPAP; PO2 95 mmHG (75-100); RR 12; SITE L Radial; SO2 96 % (95-99); Total Carbon Dioxide 24 mmol/L; pCO2 45.6 mmHg (35-45); pH 7.29 (7.35-7.45)
--- NOTE | 2020-09-30 17:55 | PCM.RX.CS ---
Consult Pharmacy has been consulted to manage selected antiobiotic: Vancomycin Type of Consult: New start Labs: Sodium 130 mmol/L (136-145) L 09/30/20 13:35 Potassium 3.2 mmol/L (3.5-5.1) L 09/30/20 13:35 Chloride 96 mmol/L (98-107) L 09/30/20 13:35 Carbon Dioxide 25.0 mmol/L (21.0-32.0) 09/30/20 13:35 Anion Gap 9 (5-15) 09/30/20 13:35 BUN 18 mg/dL (7-18) 09/30/20 13:35 Creatinine 1.15 mg/dL (0.70-1.30) 09/30/20 13:35 Est GFR (MDRD) Af Amer 81 mL/min (>60) 09/30/20 13:35 Est GFR (MDRD) Non-Af 67 mL/min (>60) 09/30/20 13:35 BUN/Creatinine Ratio 15.7 RATIO (10-20) 09/30/20 13:35 Glucose 132 mg/dL (74-106) H 09/30/20 13:35 Microbiology: Microbiology 09/29/20 18:20 Blood Culture (Wb) - Anticubital Right Blood Culture - Preliminary 09/29/20 19:35 Nasal Secretion SARS-CoV-2 Antigen (Rapid) - Final Weight used for dosin.8 kg Estimated Creatinine Clearance: 78.4 Pharmacy Plan for Drug Dosing: Pharmacy Service will continue to monitor and adjust dosing as required. Follow-Up Labs: Trough Vancomycin Labs to be done on [date and time ordered]: 10/02/2020 @ 0430
[2020-09-30] MEDS: Atorvastatin Calcium 20 MG Tablet PO (22:26)
--- NOTE | 2020-09-30 22:43 | CPS ---
Patient transitioned to AVAPS for improved ventilation while on BiPAP. Noted to still be drowsy while on regular BiPAP settings 14/6 with variable tidal volumes observed. RN aware of change. AVAPS settings VT450 RR14 EPAP 8 MaxP 24 MinP 12 25%.
[2020-10-01] VITALS (31 sets, daily range): BP systolic 89–127; BP diastolic 46–91; PULSE 92–116; RESP 14–108; TEMP 37.2–38; O2SAT 2–100
[2020-10-01] MEDS: Lactated Ringers 1,000 ML 125 ML IV ×3 (00:09→15:55)
[2020-10-01] MEDS: 0.9% Saline Lock 10 ML Syringe IV ×3 (04:42→13:14)
[2020-10-01 04:46] LABS: Absolute Lymphocyte Count 0.18 X10^3/uL (0.83-4.51); Absolute Neutrophil Count 1.2 X10^3/uL (2.0-7.7); Basophil# 0.01 X10^3/uL; Basophil% 0.5 % (0-1); Eosinophil# 0.02 X10^3/uL; Eosinophils% 1.1 % (0-5); Hematocrit 28.9 % (40-54); Hemoglobin 9.9 g/dL (13.0-16.5); Lymphocyte # 0.18 X10^3/ul (0.83-4.51); Lymphocyte % 9.8 % (19-41); Mean Corp Hgb Conc 34.3 g/dL (32-36); Mean Corpuscular Hgb 35.5 pg (27.0-32.0); Mean Corpuscular Volume 103.6 fL (80-94); Mean Platelet Vol. 9.5 fl (6.2-12.0); Monocyte# 0.42 X10^3/uL; NRBC Flagged by Analyzer 1.6 % (0-5); Neutrophil # 1.16 X10^3/uL (2.7-7.7); Neutrophil % 63.4 % (47-70); POSITIVE COUNT YES; POSITIVE DIFFERENTIAL YES; POSITIVE MORPHOLOGY YES; Platelet Count 52 K/mm3 (150-450); RBC Distribution Width CV 12.2 % (11.6-14.6); RBC Distribution Width SD 46.1 fl (35.1-43.9); Red Blood Count 2.79 M/mm3 (4.6-6.2); White Blood Count 1.8 K/mm3 (4.4-11.0)
[2020-10-01 04:48] LABS: Differential Indicated SCAN CRITERIA MET
[2020-10-01 05:00] LABS: AST(SGOT) 31 U/L (15-37); Alanine Aminotransfer ALT/SGPT 23 U/L (16-61); Albumin, Serum 2.5 g/dL (3.2-5.0); Alkaline Phosphatase 50 U/L (45-117); Anion Gap 8 (5-15); BUN 15 mg/dL (7-18); BUN/Creat Ratio 16.6 RATIO (10-20); Bilirubin, Direct 0.56 mg/dL (0.00-0.30); Calcium,Total 8.3 mg/dL (8.5-10.1); Chloride 100 mmol/L (98-107); EST Glomerular Filtration Rate 88 mL/min (>60); Est Glom Filt Rate - Afr Amer 107 mL/min (>60); Estimated Creatinine Clearance 81.34 ml/min; Globulin 2.8 g/dL (2.2-4.2); Glucose 107 mg/dL (74-106); Potassium 3.1 mmol/L (3.5-5.1); Protein, Total 5.3 g/dL (6.4-8.2); Sodium Level 133 mmol/L (136-145)
[2020-10-01 05:04] LABS: Platelet Estimate MOD DEC (ADEQ)
--- NOTE | 2020-10-01 05:47 | PN.CC_ITS ---
Assessment & Plan Assessment/Plan (1) Acute pancreatitis: (2) Encephalopathy: PLAN: RECOMMENDATIONS: 1. Utilize as needed Ativan for alcohol withdrawal symptoms. 2. Wean supplemental oxygen to maintain saturations at or above 90%. 3. Continue fluids and recheck lipase this morning. 4. Potassium repletion as ordered. 5. Continue thiamine and folate. 6. Continue antimicrobials pending finalized culture results. However, okay to discontinue vancomycin. 7. Consider MRI brain if no improvement in speech. IMPRESSIONS: 1. Acute hypercarbic respiratory failure Resolved. Most likely secondary to polypharmacy in the setting of adm inistration of morphine and Ativan, leading to depression and respiratory drive and subsequent CO2 retention. Continue to avoid sedating medications for now. Wean supplemental oxygen to maintain saturations at or above 90%. Encourage incentive spirometer use and mobilize patient as tolerated. 2. Metabolic encephalopathy Improved. Likely secondary to acute CO2 retention as noted above. CT head only revealed chronic involutional changes of the brain. Nevertheless, the patient continues to have dysarthric speech. May need to consider MRI brain. 3. Acute alcohol withdrawal Recommend continuing as needed Ativan for alcohol withdrawal symptoms. Continue thiamine and folate. 4. Acute pancreatitis likely secondary to alcohol Continue current supportive measures including IV fluids. Continue to trend lipase. 5. Pancytopenia Most likely secondary to chronic alcohol dependency. 6. Hypokalemia Electrolyte repletion as ordered. Recheck levels in the morning. 7. Acute kidney injury Resolved. Most likely prerenal in etiology. Creatinine has improved with volume expansion. Continue to monitor urine output. No current indication for renal replacement therapy. This note was generated with [employer]IS[employer] dictation software. It may contain incorrect words, spelling, and punctuation that were not noted in checking the note before signing. Subjective Subjective The patient was seen and examined at the bedside this morning. Events from the last 24 hours have been reviewed. The patient currently has a low-grade fever with borderline hemodynamics. He is currently maintaining appropriate oxygen saturations on 2 L/min. The patient is currently documented to be overall net +6.4 L for the hospital admission. The patient remains pancytopenic. Potassium was low this morning at 3.1. The patient was placed on BiPAP for period of time yesterday due to hypercarbia but has since been weaned back to nasal cannula oxygen. He is more alert this morning. However, his speech remains somewhat dysarthric. Objective Data Objective Data The patient's most recent lab work, culture data and imaging studies have all been personally reviewed. Surface echocardiogram from October 2019 revealed stage I diastolic dysfunction with an ejection fraction of 65%. CT head revealed chronic involutional changes of the brain. Preliminary blood cultures dated September 29 revealed gram-positive cocci. Rapid coronavirus antigen testing was negative. Urine culture is pending. Vital Signs: Vital Signs Temp Pulse Resp BP Pulse Ox 99.6 F H 96 23 H 104/59 L 97 10/01/20 05:00 10/01/20 05:00 10/01/20 05:00 10/01/20 05:00 10/01/20 05:00 Oxygen Flow Rate (L/min) 2 Oxygen Delivery Method Nasal Cannula Weight: 274 lb 14.4 oz Body Mass Index (BMI) 36.8 Intake & Output: Intake and Output for Last 24 Hours 09/29/20 09/30/20 10/01/20 23:59 23:59 23:59 Intake Total 2460 / 2460 4502.4633 / 4502.4633 1050 / 1050 Output Total 100 / 100 1090 / 1190 390 / 390 Balance 2360 / 2360 3412.4633 / 3312.4633 660 / 660 Lab / Micro Data Attestation: I reviewed the patient's lab results. Result Diagrams: 10/01/20 04:30 10/01/20 04:30 Labs: Laboratory Results - last 24 hr 09/30/20 09/30/20 09/30/20 09:24 13:35 13:35 WBC 3.3 L RBC 3.10 L Hgb 10.9 L Hct 32.3 L MCV 104.2 H MCH 35.2 H MCHC 33.7 RDW Std Deviation 47.3 H RDW Coeff of Willy 12.4 Plt Count 60 L MPV 8.8 Immature Gran % (Auto) 1.500 H Neut % (Auto) 66.0 Lymph % (Auto) 7.2 L [place] % (Auto) 24.4 H Eos % (Auto) 0.3 Baso % (Auto) 0.6 Absolute Neuts (auto) 2.2 Absolute Lymphs (auto) 0.24 L Nucleated RBC % 0.9 Differential Comment COMMENT Diff Path Review May foll Platelet Estimate MOD DEC Sodium 130 L Potassium 3.2 L Chloride 96 L Carbon Dioxide 25.0 Anion Gap 9 BUN 18 Creatinine 1.15 Estim Creat Clear Calc 63.66 Est GFR (MDRD) Af Amer 81 Est GFR (MDRD) Non-Af 67 BUN/Creatinine Ratio 15.7 Glucose 132 H Calcium 9.0 Phosphorus Total Bilirubin Direct Bilirubin AST ALT Alkaline Phosphatase Total Protein Albumin Globulin POC Glucose 140 H 09/30/20 10/01/20 10/01/20 13:35 04:30 04:30 WBC 1.8 L RBC 2.79 L Hgb 9.9 L Hct 28.9 L MCV 103.6 H MCH 35.5 H MCHC 34.3 RDW Std Deviation 46.1 H RDW Coeff of Willy 12.2 Plt Count 52 L MPV 9.5 Immature Gran % (Auto) 2.200 H Neut % (Auto) 63.4 Lymph % (Auto) 9.8 L Colbert % (Auto) 23.0 H Eos % (Auto) 1.1 Baso % (Auto) 0.5 Absolute Neuts (auto) 1.2 L Absolute Lymphs (auto) 0.18 L Nucleated RBC % 1.6 Differential Comment Diff Path Review May foll Platelet Estimate MOD DEC Sodium 133 L Potassium 3.1 L Chloride 100 Carbon Dioxide 25.0 Anion Gap 8 BUN 15 Creatinine 0.90 Estim Creat Clear Calc 81.34 Est GFR (MDRD) Af Amer 107 Est GFR (MDRD) Non-Af 88 BUN/Creatinine Ratio 16.6 Glucose 107 H Calcium 8.3 L Phosphorus 3.3 Total Bilirubin 1.00 Direct Bilirubin 0.56 H AST 31 ALT 23 Alkaline Phosphatase 50 Total Protein 5.3 L Albumin 2.5 L Globulin 2.8 POC Glucose Micro: Microbiology 09/29/20 18:20 Blood Culture (Wb) - Anticubital Right Blood Culture - Preliminary 09/29/20 19:35 Nasal Secretion SARS-CoV-2 Antigen (Rapid) - Final ABG Data ABG results: ABG 09/30/20 09/30/20 09:45 15:22 Specimen Type ART ART Sample Site L Radial L Radial pH 7.20 L 7.29 L Bicarbonate Actual 21.2 L 22.1 Total CO2 23 24 Base Excess -7 L -5 L O2 Saturation 92 L 96 O2 % 30 ABG pCO2 54.3 H 45.6 H ABG pO2 77 95 Diony Test Positive Positive Respiration Rate 12 O2 Delivery Device Cannula BiPAP Liter Flow 2.0 Crit Call To/Read Back Yes Clinical Comments 14 Radiography Diagnostic Testing: Radiology Impression Brain CT 09/30/20 14:18 IMPRESSION: Chronic involutional changes of the brain. Electronically Signed: Jerry Perry MD at 15:23 EDT Tel , Service support , ADDENDUM: 09/30/20 1537 IMPRESSION: Chronic involutional changes of the brain. N.B. : The above information has been verbally conveyed by Jerry Perry MD to Dr. Ben MD, on 09/30/2020 15:30:12 (ET). Electronically Signed: Jerry Perry MD at 15:23 EDT Tel , Service support , Physical Exam Const alert and no apparent distress Constitutional Narrative: The patient is alert and oriented. Dysarthric speech present. General Appearance: cooperative HEENT normocephalic and head/scalp atraumatic Eyes PERRL, EOMs intact bilaterally and conjunctivae normal Neck supple General: trachea midline Resp normal respiratory effort and no use of accessory muscles Effort and Inspection: tachypneic Auscultation: diminished lung sounds; Negative for rales, rhonchi or wheezes Cardio regular rate and regular rhythm Rate: tachycardic GI normal to inspection, nondistended, normoactive bowel sounds Extremity Extremity Narrative: No clubbing or cyanosis present. Trace pedal edema noted bilaterally. Skin no rashes or lesions noted Neuro CN's II-XII intact bilaterally and moves all extremities Sensorium / Orientation: lethargic and somnolent Speech: speech abnormal Details: Positive for garbled Psych cooperative and affect normal Charges/Coding Visit Charges Inpatient E&M: 33620 Subs Hosp L3
--- NOTE | 2020-10-01 07:25 | PCM.PN.HOSP ---
Subjective Subjective Temperature 99.5. Pulse ox 99% on 2 L of oxygen. Respiratory rate 18 to 23/min Objective Data Objective Data Vital Signs: Vital Signs Temp Pulse Resp BP Pulse Ox 99.5 F H 100 23 H 115/52 L 97 10/01/20 06:00 10/01/20 06:00 10/01/20 06:00 10/01/20 06:00 10/01/20 07:15 Oxygen Flow Rate (L/min) 2 Oxygen Delivery Method Nasal Cannula Weight: 274 lb 14.4 oz Body Mass Index (BMI) 36.8 Intake & Output: Intake and Output for Last 24 Hours 09/29/20 09/30/20 10/01/20 23:59 23:59 23:59 Intake Total 2460 / 2460 4502.4633 / 4502.4633 1325 / 1325 Output Total 100 / 100 1090 / 1190 390 / 390 Balance 2360 / 2360 3412.4633 / 3312.4633 935 / 935 Lab / Micro Data Result Diagrams: 10/01/20 04:30 10/01/20 04:30 Labs: Laboratory Results - last 24 hr 09/30/20 09/30/20 09/30/20 09:24 13:35 13:35 WBC 3.3 L RBC 3.10 L Hgb 10.9 L Hct 32.3 L MCV 104.2 H MCH 35.2 H MCHC 33.7 RDW Std Deviation 47.3 H RDW Coeff of Willy 12.4 Plt Count 60 L MPV 8.8 Immature Gran % (Auto) 1.500 H Neut % (Auto) 66.0 Lymph % (Auto) 7.2 L [place] % (Auto) 24.4 H Eos % (Auto) 0.3 Baso % (Auto) 0.6 Absolute Neuts (auto) 2.2 Absolute Lymphs (auto) 0.24 L Nucleated RBC % 0.9 Differential Comment COMMENT Diff Path Review May foll Platelet Estimate MOD DEC Sodium 130 L Potassium 3.2 L Chloride 96 L Carbon Dioxide 25.0 Anion Gap 9 BUN 18 Creatinine 1.15 Estim Creat Clear Calc 63.66 Est GFR (MDRD) Af Amer 81 Est GFR (MDRD) Non-Af 67 BUN/Creatinine Ratio 15.7 Glucose 132 H Calcium 9.0 Phosphorus Total Bilirubin Direct Bilirubin AST ALT Alkaline Phosphatase Total Protein Albumin Globulin POC Glucose 140 H 09/30/20 10/01/20 10/01/20 13:35 04:30 04:30 WBC 1.8 L RBC 2.79 L Hgb 9.9 L Hct 28.9 L MCV 103.6 H MCH 35.5 H MCHC 34.3 RDW Std Deviation 46.1 H RDW Coeff of Willy 12.2 Plt Count 52 L MPV 9.5 Immature Gran % (Auto) 2.200 H Neut % (Auto) 63.4 Lymph % (Auto) 9.8 L [place] % (Auto) 23.0 H Eos % (Auto) 1.1 Baso % (Auto) 0.5 Absolute Neuts (auto) 1.2 L Absolute Lymphs (auto) 0.18 L Nucleated RBC % 1.6 Differential Comment Diff Path Review May foll Platelet Estimate MOD DEC Sodium 133 L Potassium 3.1 L Chloride 100 Carbon Dioxide 25.0 Anion Gap 8 BUN 15 Creatinine 0.90 Estim Creat Clear Calc 81.34 Est GFR (MDRD) Af Amer 107 Est GFR (MDRD) Non-Af 88 BUN/Creatinine Ratio 16.6 Glucose 107 H Calcium 8.3 L Phosphorus 3.3 Total Bilirubin 1.00 Direct Bilirubin 0.56 H AST 31 ALT 23 Alkaline Phosphatase 50 Total Protein 5.3 L Albumin 2.5 L Globulin 2.8 POC Glucose Micro: Microbiology 09/29/20 18:20 Blood Culture (Wb) - Anticubital Right Blood Culture - Preliminary 09/29/20 19:35 Nasal Secretion SARS-CoV-2 Antigen (Rapid) - Final ABG Data ABG results: ABG 09/30/20 09/30/20 09:45 15:22 Specimen Type ART ART Sample Site L Radial L Radial pH 7.20 L 7.29 L Bicarbonate Actual 21.2 L 22.1 Total CO2 23 24 Base Excess -7 L -5 L O2 Saturation 92 L 96 O2 % 30 ABG pCO2 54.3 H 45.6 H ABG pO2 77 95 Diony Test Positive Positive Respiration Rate 12 O2 Delivery Device Cannula BiPAP Liter Flow 2.0 Crit Call To/Read Back Yes Clinical Comments 14 Radiography Diagnostic Testing: Radiology Impression Brain CT 09/30/20 14:18 IMPRESSION: Chronic involutional changes of the brain. Electronically Signed: Jerry Perry MD at 15:23 EDT Tel , Service support , ADDENDUM: 09/30/20 1537 IMPRESSION: Chronic involutional changes of the brain. N.B. : The above information has been verbally conveyed by Jerry Perry MD to Dr. Ben MD, on 09/30/2020 15:30:12 (ET). Electronically Signed: Jerry Perry MD at 15:23 EDT Tel , Service support , Physical Exam Narrative threat monitoring analyst sinus rhythm. General: Awake but patient is lethargic and obtunded. HEENT: Atraumatic, pupils bilateral sluggish reacting, Normocephalic Oral: No Gingival or Mucosal Lesions/ Ulcerations Neck: Supple, No JVD, Negative Carotid Bruits Lungs: Air entry very diminished in bilateral lungs. no crepitation/rhonchi. Respiratory 16 to 24/m Cardiovascular: Regular rate, Regular Rhythm, low volume, Normal S1, Normal S2, No murmurs Abdomen: Bowel Sounds sluggish. No tenderness or distended. : No renal angle tenderness. No suprapubic tenderness. Extremities: No edema, Capillary Refill Less than 3 Seconds Skin: Dirty and mud staining toes. Musculoskeletal: No Tenderness to Palpation of Joints or Extremities Neurological: Patient follows simple command. Detail neuro cannot be evaluated accurately. No focal neurological deficit Psych/Mental Status: Flat affect. Assessment & Plan Assessment/Plan (1) Acute hyperactive alcohol withdrawal delirium: (2) Lactic acidosis: (3) Acute pancreatitis: PLAN: This is a 69 years old male patient who was admitted to PCU from ER because of fall and difficulty ambulating, found to have acute pancreatitis on CT scan abdomen with elevated lipase and also found to have electrolyte abnormalities, lactic acidosis and alcohol withdrawal. #[address] abdomen showed acute pancreatitis without pseudocyst abscess or necrotizing pancreatitis. Lipase is elevated. Patient admitted to PCU but transferred to ICU because of unresponsive episode. IV fluid, electrolyte monitoring and replacement. 10/01: Lipase level is improved 707. #2 hyponatremia/hypokalemia/hypophosphatemia and lactic acidosis; metabolic derangement from pancreatitis and chronic alcoholism or bacteremia/sepsis: Due to malnutrition and alcoholism, pancreatitis and dehydration probably lactic acidosis. Magnesium is normal. Serum phosphate and potassium are low. Getting replacement. chest x-ray no acute finding. I do not suspect severe sepsis or sepsis. UA no acute infection. COVID-19 rapid antigen negative. Gram-positive cocci in blood culture, possible skin contamination. Empirically patient started on IV vancomycin and Zosyn. Follow for blood culture. Temperature 100.3 ?F. #3 unresponsive, hypotension and acute respiratory failure episode secondary to IV lorazepam: Patient has been getting IV Ativan as per CIWA protocol and CIWA score has been 8-10 as per nursing staff. Patient got last dose around 8:30 AM and fall unresponsive, labored/agonal breathing and hypotensive. Emergency management as per protocol, IV fluid Ringer lactate, was done and patient transferred to ICU for further management. CT head was done does not show any acute change. Furthermore, MRI brain was done which did not show acute abnormality. Patient is claustrophobic and required Ativan for MRI. #4 acute alcohol withdrawal: Continue CIWA protocol, IV thiamine and folic acid supplement. Discontinue Phenergan and hold lorazepam and other sedative medications. #5 Acute kidney injury: Due to dehydration, prerenal. Unknown baseline kidney function. Mild improvement in creatinine. 6/2: Creatinine 0.9. BUN 15. CARMELA resolved. #6 paroxysmal atrial fibrillation: He is not on anticoagulation. Patient on acebutolol with holding parameters patient hypotensive. #7 hypertension: Currently hypotensive. #8 CODE STATUS: Full code. #9 DVT prophylaxis: Subcu heparin. Total time of the visit including total time spent in counseling or coordination of care, (more than 50% of the total time, spent in obtaining medical information from nurses and other ancillary care providers,explaining to the patient about labs, imaging, diagnosis and management), during rapid/emergency response team, resuscitation, review of labs and imaging is 60 minutes Clinical Impression(s) from Imaging Studies Chest/Abdomen/Pelvis CTA 09/29/20 18:01 IMPRESSION: 1. No CT evidence of pulmonary embolism. 2. Acute pancreatitis without pseudocyst, abscess, or necrotizing pancreatitis. Electronically Signed: Jerry Perry MD at 18:59 EDT Tel , Service support , Chest X-Ray 09/29/20 18:22 IMPRESSION: Normal x-ray examination of the chest. Visit Charges Inpatient E&M: 59331 Subs Hosp L3
[2020-10-01 08:04] LABS: Lipase 707 U/L (73-393)
--- NOTE | 2020-10-01 08:59 | MRI_ITS ---
STUDY: MRI BRAIN WITHOUT CONTRAST REASON FOR EXAM: Male, 69 years old. Dysarthria, concern for CVA -- patient uncooperative with pre meds x 2 TECHNIQUE: Standardized multiplanar fat and water weighted pulse sequences were obtained. COMPARISON: CT 09/30/2020 FINDINGS: There is mild cerebral atrophy with widening of the extra-axial spaces and ventricular dilatation. Normal white matter tracts of the supratentorial brain. There is no evidence for recent intracranial ischemia or other cause of cytotoxic edema on diffusion weighted imaging (DWI). Normal T2* images of the brain without demonstrated susceptibility artifact. There is no demonstrated hemosiderin stain. Normal bilateral basal ganglia. 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 There is no extra-axial fluid accumulation. Normal flow voids within the major intracranial circulation suggesting patency by spin echo criteria. Normal sella turcica, pituitary gland, infundibular stalk, optic chiasm and hypothalamus. Normal tectal plate and pineal gland. Normal midbrain, jeane and medulla. Normal cerebellum. Normal basal cisterns. Normal bilateral temporal bones. Normal bilateral internal auditory canals. No demonstrated orbital abnormality, within the constraints of a routine brain study. There is mucoperiosteal inflammatory disease of the paranasal sinuses consistent with moderate chronic sinusitis. Normal calvarium and skull base. Normal visualized soft tissue structures. Normal visualized upper cervical spine. MRI/Brain without Contrast IMPRESSION: Involutional changes of the brain, as described above. No acute infarct. Electronically Signed: Jerry Perry MD at 13:04 EDT Tel , Service support ,
--- NOTE | 2020-10-01 10:00 | CASEMGMT ---
RN DEVIN Assessment: Face to Face with pt for initial transition planning/care coordination assessment. RN CM introduced self and role at [facility], pt voices understanding and consents to assessment. Pt appears oriented x4 and answers all questions appropriately at this time although speech is very garbled and hard to understand. Spoke with pt nurse, Anaya who states pt is going to get MRI. Care providers, pharmacy, and demographics verified/updated. Admitting Dx: acute pancreatitis, CARMELA, hypokalemia, hyponatremia PCP:[facility] [place] Specialists:Pt states he uses [facility] for cardiology. Preferred Pharmacy: [email or web address] Insurance: [employer] Prescription Benefit: yes LW/HPOA: Pt denies LW/DPOA. LNOK: July [employer], dtr Living Arrangements: Pt lives alone in a single story house with 3 steps to enter with rail. Pt reports he was I in ADL's. Transportation: Pt states he drives himself and denies issues with transportation. DME/HHC/SNF: Pt has a cane at home from hip surgery, but does not use. Pt has grab bars and a shower chair as well. He denies any previous HHC or SNF stays. Pt states no further concerns/needs. CM to follow course of hospital stay. Advised pt to ask CM if any further question/concerns/needs arise, voices understanding. Pt Goal: Home Plan: TBD
[2020-10-01] MEDS: Potassium Chloride 10mEq/100mL 10 MEQ/100 ML IV.SOLN. 100 MEQ IV BOLUS ×4 (10:56→17:56)
[2020-10-01] MEDS: LORazepam 2 MG/ML Syringe 1 MG IV ×2 (11:51→13:13)
[2020-10-01 13:37] LABS: Pathologist Review Reviewed
[2020-10-01 13:41] LABS: Pathologist Review Reviewed
[2020-10-01 13:49] LABS: Pathologist Review Reviewed
--- NOTE | 2020-10-01 14:09 | CASEMGMT ---
Pt screened with [facility] Palliative Care Screening Tool due to being a strata 3, pt did not meet criteria.
--- NOTE | 2020-10-01 14:35 | CASEMGMT ---
Social Work SW met with pt in room to discuss discharge plan. Pt is able to open eyes and attempts to speak with SW. Pt with dysarthria, SW unable to understand pt. When SW inquired if dgt could be contacted pt shook his head yes. If pt is unable to speak with SW tomorrow regarding d/c plan, KATHE will place call to pt daughter to discuss discharge plan. CHRISTEL Bang
[2020-10-02] VITALS (17 sets, daily range): BP systolic 99–144; BP diastolic 48–79; PULSE 91–109; RESP 18–24; TEMP 36.5–37.6; O2SAT 90–100
[2020-10-02] MEDS: Lactated Ringers 1,000 ML 125 ML IV (00:32)
--- NOTE | 2020-10-02 01:14 | CPS ---
Patient not interested in wearing the BiPAP tonight. Has been stable on NC O2 and easily arousable per nursing staff. PRODUCTION [employer]CH[employer]IC will monitor overnight and apply BiPAP if patient worsens or shows indication to.
[2020-10-02 04:50] LABS: AST(SGOT) 27 U/L (15-37); Alanine Aminotransfer ALT/SGPT 20 U/L (16-61); Albumin, Serum 2.3 g/dL (3.2-5.0); Alkaline Phosphatase 48 U/L (45-117); Anion Gap 9 (5-15); BUN 7 mg/dL (7-18); BUN/Creat Ratio 11.5 RATIO (10-20); Bilirubin, Direct 0.44 mg/dL (0.00-0.30); Calcium,Total 7.7 mg/dL (8.5-10.1); Chloride 101 mmol/L (98-107); Creatinine, Serum 0.61 mg/dL (0.70-1.30); EST Glomerular Filtration Rate 139 mL/min (>60); Est Glom Filt Rate - Afr Amer 168 mL/min (>60); Estimated Creatinine Clearance 73.21 ml/min; Globulin 2.7 g/dL (2.2-4.2); Glucose 107 mg/dL (74-106); Potassium 3.2 mmol/L (3.5-5.1); Sodium Level 136 mmol/L (136-145)
--- NOTE | 2020-10-02 05:44 | PCM.PN.INT ---
Assessment & Plan Assessment/Plan (1) Acute pancreatitis: (2) Encephalopathy: PLAN: RECOMMENDATIONS: 1. Utilize as needed Ativan for alcohol withdrawal symptoms. 2. Wean supplemental oxygen to maintain saturations at or above 90%. 3. Stop continuous IV fluids. 4. Additional potassium repletion as ordered. Check magnesium and phosphorus levels as well. 5. Continue thiamine and folate. 6. Continue antimicrobials. 7. The patient is medically stable for transfer out of the intensive care unit. IMPRESSIONS: 1. Acute hypercarbic respiratory failure Resolved. Most likely secondary to polypharmacy in the setting of administration of morphine and Ativan, leading to depression and respiratory drive and subsequent CO2 retention. Continue to avoid sedating medications for now. Wean supplemental oxygen to maintain saturations at or above 90%. Encourage incentive spirometer use and mobilize patient as tolerated. 2. Metabolic encephalopathy Improved. Likely secondary to acute CO2 retention as noted above. CT head only revealed chronic involutional changes of the brain. MRI brain failed to demonstrate evidence of acute infarction. The patient appears to be at his baseline from a mental status perspective. 3. Acute alcohol withdrawal Recommend continuing as needed Ativan for alcohol withdrawal symptoms. Continue thiamine and folate. 4. Acute pancreatitis likely secondary to alcohol Improved. Fluids can be discontinued from my perspective. Diet can be advanced once cleared by speech therapy. 5. Pancytopenia Most likely secondary to chronic alcohol dependency. 6. Hypokalemia Electrolyte repletion as ordered. Recheck levels in the morning. 7. Acute kidney injury Resolved. Most likely prerenal in etiology. Creatinine has improved with volume expansion. Continue to monitor urine output. No current indication for renal replacement therapy. This note was generated with [employer] dictation software. It may contain incorrect words, spelling, and punctuation that were not noted in checking the note before signing. Subjective Subjective The patient was seen and examined at the bedside this morning. Events from the last 24 hours have been reviewed. The patient is currently afebrile and hemodynamically stable. He is maintaining appropriate oxygen saturations on 2 L/min via nasal cannula. The patient is currently documented to be overall net +8.8 L for the hospital admission. Potassium was low this morning at 3.2. Due to the patient's dysarthric speech, he was referred for an MRI brain yesterday. However, the patient did not cooperate for the full extent of the imaging study and only noncontrasted images were able to be obtained. Nevertheless, no acute infarction was noted. The patient did refuse to utilize BiPAP overnight. Objective Data Objective Data The patient's most recent lab work, culture data and imaging studies have all been personally reviewed. Surface echocardiogram from October 2019 revealed stage I diastolic dysfunction with an ejection fraction of 65%. CT head revealed chronic involutional changes of the brain. Preliminary blood cultures dated September 29 revealed gram-positive cocci. Rapid coronavirus antigen testing was negative. Urine culture is pending. Vital Signs: Vital Signs Temp Pulse Resp BP Pulse Ox 99.1 F 102 H 19 H 124/73 H 99 10/02/20 03:00 10/02/20 03:00 10/02/20 03:00 10/02/20 03:00 10/02/20 03:00 Oxygen Flow Rate (L/min) 2 Oxygen Delivery Method Nasal Cannula Weight: 277 lb 12.8 oz Body Mass Index (BMI) 36.8 Intake & Output: Intake and Output for Last 24 Hours 09/30/20 10/01/20 10/02/20 23:59 23:59 23:59 Intake Total 4502.4633 / 4502.4633 3873.7 / 3873.7 1050 / 1050 Output Total 1090 / 1190 1140 / 1840 700 / 700 Balance 3412.4633 / 3312.4633 2733.7 / 2033.7 350 / 350 Lab / Micro Data Attestation: I reviewed the patient's lab results. Result Diagrams: 10/01/20 04:30 10/02/20 04:05 Labs: Laboratory Results - last 24 hr 09/30/20 09/30/20 10/01/20 04:56 13:35 04:30 Diff Path Review Reviewed Reviewed Reviewed Sodium Potassium Chloride Carbon Dioxide Anion Gap BUN Creatinine Estim Creat Clear Calc Est GFR (MDRD) Af Amer Est GFR (MDRD) Non-Af BUN/Creatinine Ratio Glucose Calcium Total Bilirubin Direct Bilirubin AST ALT Alkaline Phosphatase Total Protein Albumin Globulin Lipase 10/01/20 10/02/20 04:30 04:05 Diff Path Review Sodium 136 Potassium 3.2 L Chloride 101 Carbon Dioxide 26.0 Anion Gap 9 BUN 7 Creatinine 0.61 L Estim Creat Clear Calc 73.21 Est GFR (MDRD) Af Amer 168 Est GFR (MDRD) Non-Af 139 BUN/Creatinine Ratio 11.5 Glucose 107 H Calcium 7.7 L Total Bilirubin 0.70 Direct Bilirubin 0.44 H AST 27 ALT 20 Alkaline Phosphatase 48 Total Protein 5.0 L Albumin 2.3 L Globulin 2.7 Lipase 707 H Micro: Microbiology 09/29/20 22:45 Urine, Clean Catch Urine Culture - Preliminary GPC Poss Enterococcus sp 09/29/20 18:20 Blood Culture (Wb) - Anticubital Right Blood Culture - Preliminary Coag Negative Staph 09/29/20 19:35 Nasal Secretion SARS-CoV-2 Antigen (Rapid) - Final Radiography Diagnostic Testing: Radiology Impression Brain MRI 10/01/20 08:59 IMPRESSION: Involutional changes of the brain, as described above. No acute infarct. Electronically Signed: Jerry Perry MD at 13:04 EDT Tel , Service support , Physical Exam Const alert and no apparent distress Constitutional Narrative: Sitting in bedside recliner. General Appearance: cooperative HEENT normocephalic and head/scalp atraumatic Eyes EOMs intact bilaterally and conjunctivae normal Neck supple General: trachea midline Resp Auscultation: diminished lung sounds; Negative for rales, rhonchi or wheezes Cardio regular rate and regular rhythm GI normal to inspection, nondistended, normoactive bowel sounds Extremity Extremity Narrative: No clubbing or cyanosis present. Trace pedal edema noted bilaterally. Skin no rashes or lesions noted Neuro CN's II-XII intact bilaterally and moves all extremities Speech: speech abnormal Details: Positive for garbled Psych Mood & Affect: flat affect Charges/Coding Visit Charges Inpatient E&M: 33379 Subs Hosp L2
[2020-10-02 06:25] LABS: Lipase 366 U/L (73-393); Magnesium 1.6 mg/dL (1.6-2.6); Phosphorus 1.4 mg/dL (2.5-4.9)
[2020-10-02] MEDS: 0.9% Saline Lock 10 ML Syringe IV ×2 (06:34→13:38)
[2020-10-02] MEDS: Potassium Chloride 10mEq/100mL 10 MEQ/100 ML IV.SOLN. 100 MEQ IV BOLUS ×4 (06:34→10:46)
--- NOTE | 2020-10-02 07:26 | PCM.PN.HOSP ---
Subjective Subjective Low-grade fever. Pulse in 90s.On 2 L of oxygen, RR 20 to 24/min. Patient is awake but is still answer questions slowly with increased reaction time. Patient denies prior history of a stroke or other neurological disease. Evaluated by speech therapist and made NPO. Objective Data Objective Data Vital Signs: Vital Signs Temp Pulse Resp BP Pulse Ox 99.1 F 94 23 H 103/50 L 95 10/02/20 06:00 10/02/20 06:00 10/02/20 06:00 10/02/20 06:00 10/02/20 06:00 Oxygen Flow Rate (L/min) 2 Oxygen Delivery Method Nasal Cannula Weight: 277 lb 12.8 oz Body Mass Index (BMI) 36.8 Intake & Output: Intake and Output for Last 24 Hours 09/30/20 10/01/20 10/02/20 23:59 23:59 23:59 Intake Total 4502.4633 / 4502.4633 3873.7 / 3873.7 1050 / 1050 Output Total 1090 / 1190 1140 / 1840 1075 / 1075 Balance 3412.4633 / 3312.4633 2733.7 / 2033.7 -25 / -25 Lab / Micro Data Result Diagrams: 10/01/20 04:30 10/02/20 04:05 Labs: Laboratory Results - last 24 hr 09/30/20 09/30/20 10/01/20 04:56 13:35 04:30 Diff Path Review Reviewed Reviewed Reviewed Sodium Potassium Chloride Carbon Dioxide Anion Gap BUN Creatinine Estim Creat Clear Calc Est GFR (MDRD) Af Amer Est GFR (MDRD) Non-Af BUN/Creatinine Ratio Glucose Calcium Phosphorus Magnesium Total Bilirubin Direct Bilirubin AST ALT Alkaline Phosphatase Total Protein Albumin Globulin Lipase 10/01/20 10/02/20 10/02/20 04:30 04:05 04:05 Diff Path Review Sodium 136 Potassium 3.2 L Chloride 101 Carbon Dioxide 26.0 Anion Gap 9 BUN 7 Creatinine 0.61 L Estim Creat Clear Calc 73.21 Est GFR (MDRD) Af Amer 168 Est GFR (MDRD) Non-Af 139 BUN/Creatinine Ratio 11.5 Glucose 107 H Calcium 7.7 L Phosphorus 1.4 L Magnesium 1.6 Total Bilirubin 0.70 Direct Bilirubin 0.44 H AST 27 ALT 20 Alkaline Phosphatase 48 Total Protein 5.0 L Albumin 2.3 L Globulin 2.7 Lipase 707 H 366 Micro: Microbiology 09/29/20 22:45 Urine, Clean Catch Urine Culture - Preliminary GPC Poss Enterococcus sp 09/29/20 18:20 Blood Culture (Wb) - Anticubital Right Blood Culture - Preliminary Coag Negative Staph 09/29/20 19:35 Nasal Secretion SARS-CoV-2 Antigen (Rapid) - Final Radiography Diagnostic Testing: Radiology Impression Brain MRI 10/01/20 08:59 IMPRESSION: Involutional changes of the brain, as described above. No acute infarct. Electronically Signed: Jerry Perry MD at 13:04 EDT Tel , Service support , Physical Exam Narrative cafeteria monitor sinus rhythm with PVCs. General: Awake but patient is lethargic. Oriented x3 HEENT: Atraumatic, pupils bilateral sluggish reacting, Normocephalic Oral: Oropharyngeal dysphagia. No Gingival or Mucosal Lesions/ Ulcerations Neck: Supple, No JVD, Negative Carotid Bruits Lungs: Air entry diminished in bilateral lungs. no crepitation/rhonchi. Cardiovascular: Regular rate, Regular Rhythm, low volume, Normal S1, Normal S2, No murmurs Abdomen: Bowel Sounds sluggish. No tenderness or distended. : No renal angle tenderness. No suprapubic tenderness. Extremities: No edema, Capillary Refill Less than 3 Seconds Skin: Dirty and mud staining toes. Musculoskeletal: No Tenderness to Palpation of Joints or Extremities Neurological: Patient follows simple command. Detail neuro cannot be evaluated accurately. No focal neurological deficit Psych/Mental Status: Flat affect. Assessment & Plan Assessment/Plan (1) Acute hyperactive alcohol withdrawal delirium: (2) Lactic acidosis: (3) Acute pancreatitis: PLAN: This is a 69 years old male patient who was admitted to PCU from ER because of fall and difficulty ambulating, found to have acute pancreatitis on CT scan abdomen with elevated lipase and also found to have electrolyte abnormalities, lactic acidosis and alcohol withdrawal. #[address] abdomen showed acute pancreatitis without pseudocyst abscess or necrotizing pancreatitis. Lipase is elevated. Patient admitted to PCU but transferred to ICU because of unresponsive episode. IV fluid, electrolyte monitoring and replacement. 6/2: Lipase level is improved 707. 6/: Currently n.p.o. IV fluid for nutritional support. #2 hyponatremia/hypokalemia/hypophosphatemia and lactic acidosis; metabolic derangement from pancreatitis and chronic alcoholism or bacteremia/sepsis: Due to malnutrition and alcoholism, pancreatitis and dehydration probably lactic acidosis. Magnesium is normal. Serum phosphate and potassium are low. Getting replacement. chest x-ray no acute finding. I do not suspect severe sepsis or sepsis. UA no acute infection. COVID-19 rapid antigen negative. Gram-positive cocci in blood culture, possible skin contamination. Empirically patient started on IV vancomycin and Zosyn. Follow for blood culture. Temperature 100.3 ?F. 10/02: Continue antibiotic. Urine culture shows 1000-10,000 mixed gram-positive organism suggestive of contaminants. Final report on the blood culture is awaited. #3 unresponsive, hypotension and acute respiratory failure episode secondary to IV lorazepam: Patient has been getting IV Ativan as per CIWA protocol and CIWA score has been 8-10 as per nursing staff. Patient got last dose around 8:30 AM and fall unresponsive, labored/agonal breathing and hypotensive. Emergency management as per protocol, IV fluid Ringer lactate, was done and patient transferred to ICU for further management. CT head was done does not show any acute change. Furthermore, MRI brain was done which did not show acute abnormality. Patient is claustrophobic and required Ativan for MRI. /: Patient might have alcohol-related encephalopathy probably Wernicke's encephalopathy. #4 acute alcohol withdrawal: Continue CIWA protocol, IV thiamine and folic acid supplement. Discontinue Phenergan and hold lorazepam and other sedative medications. #5 Acute kidney injury: Due to dehydration, prerenal. Unknown baseline kidney function. Mild improvement in creatinine. /: Creatinine 0.9. BUN 15. CARMELA resolved. #6 paroxysmal atrial fibrillation: He is not on anticoagulation. Patient on acebutolol with holding parameters patient hypotensive. #7 hypertension: Currently hypotensive. #8 CODE STATUS: Full code. #9 DVT prophylaxis: Subcu heparin. Total time of the visit including total time spent in counseling or coordination of care, (more than 50% of the total time, spent in obtaining medical information from nurses and other ancillary care providers,explaining to the patient about labs, imaging, diagnosis and management), during rapid/emergency response team, resuscitation, review of labs and imaging is 60 minutes Clinical Impression(s) from Imaging Studies Chest/Abdomen/Pelvis CTA 09/29/20 18:01 IMPRESSION: 1. No CT evidence of pulmonary embolism. 2. Acute pancreatitis without pseudocyst, abscess, or necrotizing pancreatitis. Electronically Signed: Jerry Perry MD at 18:59 EDT Tel , Service support , Chest X-Ray 09/29/20 18:22 IMPRESSION: Normal x-ray examination of the chest. Charges/Coding Visit Charges Inpatient E&M: 63322 Subs Hosp L3
--- NOTE | 2020-10-02 10:02 | CASEMGMT ---
Addendum entered by Kelli Diallo 10/02/20 13:07: Social Work SW met with pt and discussed discharge options. Pt preferred provider is [facility]. Referral made to TCU and they are able to accept. Precert will be started. Plan: TCU, pending precert. CHRISTEL Bang Original Note: Social Work SW met with pt to discuss discharge plan. Pt is sitting in a chair, awake and willing to participate in conversation. Pt speech continues to be impaired, but pt is able to communicate with SW. Prior to hospitalization pt lived as home alone and was independent in all care needs. Pt states he has two daughters who live in [place] and [place]. Pt currently a Max Ax2 for transfers and ambulation and does not pass swallowing eval. Pt agrees that he will need short term stay in SNF prior to returning home alone. Pt was given a list of SNF providers including quality and resource use data and consistent with the patient's preferred geographic region, medical needs and insurance network. Pt agreeable to consider options and SW will return later in the day to discuss pt choices. CHRISTEL Bang
[2020-10-02 13:51] LABS: Hematocrit 30.9 % (40-54); Hemoglobin 10.4 g/dL (13.0-16.5); Mean Corp Hgb Conc 33.7 g/dL (32-36); Mean Platelet Vol. 8.6 fl (6.2-12.0); POSITIVE COUNT YES; POSITIVE DIFFERENTIAL YES; POSITIVE MORPHOLOGY YES; Platelet Count 65 K/mm3 (150-450); RBC Distribution Width CV 12.3 % (11.6-14.6); RBC Distribution Width SD 46.3 fl (35.1-43.9); Red Blood Count 2.97 M/mm3 (4.6-6.2); White Blood Count 4.2 K/mm3 (4.4-11.0)
[2020-10-02 13:54] LABS: Differential Indicated MANUAL DIFF
[2020-10-02 14:26] LABS: Eosinophil 1 % (0-5); Lymphocyte 7 % (19-41); Metamyelocyte 1 % (0-1); Monocyte 13 % (0-10); Myelocyte 3 % (0-0); Neutrophil-Band 6 % (0-5); Neutrophil-Segmented 69 % (47-70); Total Cells Counted 100 (MANUAL DIFF)
[2020-10-02 14:27] LABS: Platelet Estimate MOD DEC (ADEQ); Red Cell Morphology NORM C+C NORMAL (NORM C&C)
[2020-10-02 14:31] LABS: Absolute Lymphocyte Count 0.29 X10^3/uL (0.83-4.51); Absolute Neutrophil Count 3.2 X10^3/uL (2.0-7.7)
[2020-10-03] VITALS (13 sets, daily range): BP systolic 147–152; BP diastolic 72–93; PULSE 82–125; RESP 18–22; TEMP 36.7–37.1; O2SAT 93–97
[2020-10-03] MEDS: 0.9% Saline Lock 10 ML Syringe IV (02:30)
[2020-10-03] MEDS: Ketorolac 30 MG/ML Syringe IV (02:30)
[2020-10-03] MEDS: Albuterol 2.5 MG/3 ML VIAL.NEB. INHALATION ×3 (05:34→23:41)
[2020-10-03 05:36] LABS: Hematocrit 30.1 % (40-54); Hemoglobin 10.3 g/dL (13.0-16.5); Immature Platelet Fraction 1.3 % (1.0-7.9); Mean Corp Hgb Conc 34.2 g/dL (32-36); Mean Corpuscular Hgb 35.2 pg (27.0-32.0); Mean Corpuscular Volume 102.7 fL (80-94); Mean Platelet Vol. 8.4 fl (6.2-12.0); POSITIVE COUNT YES; POSITIVE DIFFERENTIAL YES; POSITIVE MORPHOLOGY YES; Platelet Count 68 K/mm3 (150-450); RBC Distribution Width CV 12.2 % (11.6-14.6); RBC Distribution Width SD 45.9 fl (35.1-43.9); RET-HE 34.5 pg (30-35); Red Blood Count 2.93 M/mm3 (4.6-6.2); Reticulocyte Count 2.08 % (0.5-1.5); White Blood Count 5.9 K/mm3 (4.4-11.0)
[2020-10-03 05:41] LABS: Differential Indicated MANUAL DIFF
[2020-10-03 05:53] LABS: AST(SGOT) 35 U/L (15-37); Alanine Aminotransfer ALT/SGPT 23 U/L (16-61); Albumin, Serum 2.7 g/dL (3.2-5.0); Alkaline Phosphatase 62 U/L (45-117); Anion Gap 8 (5-15); BUN 3 mg/dL (7-18); BUN/Creat Ratio 5.7 RATIO (10-20); Bilirubin, Direct 0.49 mg/dL (0.00-0.30); Calcium,Total 7.7 mg/dL (8.5-10.1); Chloride 99 mmol/L (98-107); Creatinine, Serum 0.52 mg/dL (0.70-1.30); EST Glomerular Filtration Rate 165 mL/min (>60); Est Glom Filt Rate - Afr Amer 200 mL/min (>60); Estimated Creatinine Clearance 73.21 ml/min; Globulin 3.2 g/dL (2.2-4.2); Glucose 123 mg/dL (74-106); Magnesium 1.9 mg/dL (1.6-2.6); Potassium 2.9 mmol/L (3.5-5.1); Protein, Total 5.9 g/dL (6.4-8.2); Sodium Level 137 mmol/L (136-145)
[2020-10-03 06:10] LABS: Metamyelocyte 1 % (0-1); Neutrophil-Band 6 % (0-5); Neutrophil-Segmented 58 % (47-70)
[2020-10-03 06:11] LABS: Lymphocyte 3 % (19-41); Monocyte 7 % (0-10); Myelocyte 7 % (0-0); Promyelocyte 16 % (0-0)
[2020-10-03 06:12] LABS: Absolute Lymphocyte Count 0.18 X10^3/uL (0.83-4.51); Absolute Neutrophil Count 3.8 X10^3/uL (2.0-7.7); Platelet Estimate MOD DEC (ADEQ)
[2020-10-03 06:14] LABS: Red Cell Morphology NORM C+C NORMAL (NORM C&C)
[2020-10-03 06:31] LABS: Phosphorus 1.6 mg/dL (2.5-4.9)
[2020-10-03 08:20] LABS: Vitamin B12 650 pg/mL (211-911)
--- NOTE | 2020-10-03 13:19 | PCM.PN.INT ---
Assessment & Plan Assessment/Plan (1) Acute pancreatitis: (2) Encephalopathy: PLAN: RECOMMENDATIONS: 1. Utilize as needed Ativan for alcohol withdrawal symptoms. 2. Wean supplemental oxygen to maintain saturations at or above 90%. 3. Additional potassium repletion. 4. Continue thiamine and folate. 5. Continue antimicrobials. 6. Will sign off from a pulmonary/critical care perspective. Please call with any additional questions. IMPRESSIONS: 1. Acute hypercarbic respiratory failure Resolved. Most likely secondary to polypharmacy in the setting of administration of morphine and Ativan, leading to depression and respiratory drive and subsequent CO2 retention. Continue to avoid sedating medications for now. Wean supplemental oxygen to maintain saturations at or above 90%. Encourage incentive spirometer use and mobilize patient as tolerated. 2. Metabolic encephalopathy Improved. Likely secondary to acute CO2 retention as noted above. CT head only revealed chronic involutional changes of the brain. MRI brain failed to demonstrate evidence of acute infarction. The patient appears to be at his baseline from a mental status perspective. 3. Acute alcohol withdrawal Recommend continuing as needed Ativan for alcohol withdrawal symptoms. Continue thiamine and folate. 4. Acute pancreatitis likely secondary to alcohol Improved. Fluids can be discontinued from my perspective. Diet can be advanced once cleared by speech therapy. 5. Pancytopenia Most likely secondary to chronic alcohol dependency. 6. Acute kidney injury Resolved. Most likely prerenal in etiology. Creatinine has improved with volume expansion. Continue to monitor urine output. No current indication for renal replacement therapy. This note was generated with [employer] dictation software. It may contain incorrect words, spelling, and punctuation that were not noted in checking the note before signing. Subjective Subjective The patient was seen and examined at the bedside this morning. Events from the last 24 hours have been reviewed. The patient is currently afebrile and hemodynamically stable. He is maintaining appropriate oxygen saturations on room air. The patient is currently documented to be overall net +8.7 L for the hospital admission. Potassium was low this morning at 2.9. Objective Data Objective Data The patient's most recent lab work, culture data and imaging studies have all been personally reviewed. Surface echocardiogram from October 2019 revealed stage I diastolic dysfunction with an ejection fraction of 65%. CT head revealed chronic involutional changes of the brain. Preliminary blood cultures dated September 29 revealed gram-positive cocci. Rapid coronavirus antigen testing was negative. Urine culture is pending. Vital Signs: Vital Signs Temp Pulse Resp BP Pulse Ox 98.2 F 87 18 147/77 H 94 10/03/20 08:30 10/03/20 08:30 10/03/20 08:30 10/03/20 08:30 10/03/20 09:54 Oxygen Flow Rate (L/min) 2 Oxygen Delivery Method Room Air Weight: 272 lb 0.807 oz Body Mass Index (BMI) 36.8 Intake & Output: Intake and Output for Last 24 Hours 10/01/20 10/02/20 10/03/20 23:59 23:59 23:59 Intake Total 3873.7 / 3873.7 3191.45 / 3191.45 642.7 / 642.7 Output Total 1140 / 1840 2400 / 2400 1250 / 1250 Balance 2733.7 / 2033.7 791.45 / 791.45 -607.3 / -607.3 Lab / Micro Data Attestation: I reviewed the patient's lab results. Result Diagrams: 10/03/20 05:05 10/03/20 05:05 Labs: Laboratory Results - last 24 hr 10/02/20 10/03/20 10/03/20 13:43 05:05 05:05 WBC 4.2 L 5.9 RBC 2.97 L 2.93 L Hgb 10.4 L 10.3 L Hct 30.9 L 30.1 L MCV 104.0 H 102.7 H MCH 35.0 H 35.2 H MCHC 33.7 34.2 RDW Std Deviation 46.3 H 45.9 H RDW Coeff of Willy 12.3 12.2 Plt Count 65 L 68 L MPV 8.6 8.4 Neut % (Auto) Not Reportable Not Reportable Absolute Neuts (auto) 3.2 3.8 Absolute Lymphs (auto) 0.29 L 0.18 L Total Counted 100 Neutrophils % (Manual) 69 58 Band Neutrophils % 6 H 6 H Lymphocytes % (Manual) 7 L 3 L Monocytes % (Manual) 13 H 7 Eosinophils % (Manual) 1 Metamyelocytes % 1 1 Myelocytes % 3 H 7 H Promyelocytes % 16 H Diff Path Review May foll May foll Platelet Estimate MOD DEC MOD DEC Immature Plt Fraction 1.3 RBC Morphology NORM C+C NORM C+C Retic Count 2.08 H Immature Retic Fraction 7.70 Retic Hgb Equivalent 34.5 Sodium 137 Potassium 2.9 L Chloride 99 Carbon Dioxide 30.0 Anion Gap 8 BUN 3 L Creatinine 0.52 L Estim Creat Clear Calc 73.21 Est GFR (MDRD) Af Amer 200 Est GFR (MDRD) Non-Af 165 BUN/Creatinine Ratio 5.7 L Glucose 123 H Calcium 7.7 L Phosphorus Magnesium 1.9 Total Bilirubin 1.00 Direct Bilirubin 0.49 H AST 35 ALT 23 Alkaline Phosphatase 62 Total Protein 5.9 L Albumin 2.7 L Globulin 3.2 Vitamin B12 Folate 10/03/20 10/03/20 05:05 05:05 WBC RBC Hgb Hct MCV MCH MCHC RDW Std Deviation RDW Coeff of Willy Plt Count MPV Neut % (Auto) Absolute Neuts (auto) Absolute Lymphs (auto) Total Counted Neutrophils % (Manual) Band Neutrophils % Lymphocytes % (Manual) Monocytes % (Manual) Eosinophils % (Manual) Metamyelocytes % Myelocytes % Promyelocytes % Diff Path Review Platelet Estimate Immature Plt Fraction RBC Morphology Retic Count Immature Retic Fraction Retic Hgb Equivalent Sodium Potassium Chloride Carbon Dioxide Anion Gap BUN Creatinine Estim Creat Clear Calc Est GFR (MDRD) Af Amer Est GFR (MDRD) Non-Af BUN/Creatinine Ratio Glucose Calcium Phosphorus 1.6 L Magnesium Total Bilirubin Direct Bilirubin AST ALT Alkaline Phosphatase Total Protein Albumin Globulin Vitamin B12 650 Folate 11.10 Micro: Microbiology 09/29/20 18:20 Blood Culture (Wb) - Anticubital Right Blood Culture - Preliminary Coag Negative Staph 09/29/20 22:45 Urine, Clean Catch Urine Culture - Final Mixed Gram Positive Organisms 09/29/20 18:25 Blood Culture (Wb) - Anticubital Left Blood Culture - Preliminary No growth in 48 hours. 09/29/20 19:35 Nasal Secretion SARS-CoV-2 Antigen (Rapid) - Final Physical Exam Const alert and no apparent distress Constitutional Narrative: Sitting in bedside recliner. General Appearance: cooperative HEENT normocephalic and head/scalp atraumatic Eyes EOMs intact bilaterally and conjunctivae normal Neck supple General: trachea midline Resp Auscultation: diminished lung sounds; Negative for rales, rhonchi or wheezes Cardio regular rate and regular rhythm GI normal to inspection, nondistended, normoactive bowel sounds Extremity Extremity Narrative: No clubbing or cyanosis present. Trace pedal edema noted bilaterally. Skin no rashes or lesions noted Neuro CN's II-XII intact bilaterally and moves all extremities Speech: speech abnormal Details: Positive for garbled Psych Mood & Affect: flat affect Charges/Coding Visit Charges Inpatient E&M: 87306 Subs Hosp L2
[2020-10-03 14:23] LABS: Pathologist Review Reviewed
[2020-10-03 14:26] LABS: Pathologist Review Reviewed
--- NOTE | 2020-10-03 15:37 | PN.HOSP_ITS ---
Subjective Subjective Patient is n.p.o. as he failed screening swallow test by speech therapist. Modified barium swallow cannot be done until Tuesday as per his speech therapist probably because of unavailability of barium oral contrast. Patient is more awake and alert but gets mild difficulty in breathing on laying down Objective Data Objective Data Vital Signs: Vital Signs Temp Pulse Resp BP Pulse Ox 98.7 F 100 20 H 152/72 H 97 10/03/20 14:30 10/03/20 14:30 10/03/20 14:30 10/03/20 14:30 10/03/20 14:30 Oxygen Flow Rate (L/min) 2 Oxygen Delivery Method Room Air Weight: 272 lb 0.807 oz Body Mass Index (BMI) 36.8 Intake & Output: Intake and Output for Last 24 Hours 10/01/20 10/02/20 10/03/20 23:59 23:59 23:59 Intake Total 3873.7 / 3873.7 3191.45 / 3191.45 702.7 / 702.7 Output Total 1140 / 1840 2400 / 2400 1250 / 1250 Balance 2733.7 / 2033.7 791.45 / 791.45 -547.3 / -547.3 Lab / Micro Data Result Diagrams: 10/03/20 05:05 10/03/20 05:05 Labs: Laboratory Results - last 24 hr 10/02/20 10/03/20 10/03/20 13:43 05:05 05:05 WBC 5.9 RBC 2.93 L Hgb 10.3 L Hct 30.1 L MCV 102.7 H MCH 35.2 H MCHC 34.2 RDW Std Deviation 45.9 H RDW Coeff of Willy 12.2 Plt Count 68 L MPV 8.4 Neut % (Auto) Not Reportable Absolute Neuts (auto) 3.8 Absolute Lymphs (auto) 0.18 L Neutrophils % (Manual) 58 Band Neutrophils % 6 H Lymphocytes % (Manual) 3 L Monocytes % (Manual) 7 Metamyelocytes % 1 Myelocytes % 7 H Promyelocytes % 16 H Diff Path Review Reviewed Reviewed Platelet Estimate MOD DEC Immature Plt Fraction 1.3 RBC Morphology NORM C+C Retic Count 2.08 H Immature Retic Fraction 7.70 Retic Hgb Equivalent 34.5 Sodium 137 Potassium 2.9 L Chloride 99 Carbon Dioxide 30.0 Anion Gap 8 BUN 3 L Creatinine 0.52 L Estim Creat Clear Calc 73.21 Est GFR (MDRD) Af Amer 200 Est GFR (MDRD) Non-Af 165 BUN/Creatinine Ratio 5.7 L Glucose 123 H Calcium 7.7 L Phosphorus Magnesium 1.9 Total Bilirubin 1.00 Direct Bilirubin 0.49 H AST 35 ALT 23 Alkaline Phosphatase 62 Total Protein 5.9 L Albumin 2.7 L Globulin 3.2 Vitamin B12 Folate 10/03/20 10/03/20 05:05 05:05 WBC RBC Hgb Hct MCV MCH MCHC RDW Std Deviation RDW Coeff of Willy Plt Count MPV Neut % (Auto) Absolute Neuts (auto) Absolute Lymphs (auto) Neutrophils % (Manual) Band Neutrophils % Lymphocytes % (Manual) Monocytes % (Manual) Metamyelocytes % Myelocytes % Promyelocytes % Diff Path Review Platelet Estimate Immature Plt Fraction RBC Morphology Retic Count Immature Retic Fraction Retic Hgb Equivalent Sodium Potassium Chloride Carbon Dioxide Anion Gap BUN Creatinine Estim Creat Clear Calc Est GFR (MDRD) Af Amer Est GFR (MDRD) Non-Af BUN/Creatinine Ratio Glucose Calcium Phosphorus 1.6 L Magnesium Total Bilirubin Direct Bilirubin AST ALT Alkaline Phosphatase Total Protein Albumin Globulin Vitamin B12 650 Folate 11.10 Micro: Microbiology 09/29/20 18:20 Blood Culture (Wb) - Anticubital Right Blood Culture - Prelim inary Coag Negative Staph 09/29/20 22:45 Urine, Clean Catch Urine Culture - Final Mixed Gram Positive Organisms 09/29/20 18:25 Blood Culture (Wb) - Anticubital Left Blood Culture - Preliminary No growth in 48 hours. 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 General: Awake but patient is lethargic. Oriented x3 HEENT: Atraumatic, pupils bilateral sluggish reacting, Normocephalic Oral: Oropharyngeal dysphagia. No Gingival or Mucosal Lesions/ Ulcerations Neck: Supple, No JVD, Negative Carotid Bruits Lungs: Air entry diminished in bilateral lungs. no crepitation/rhonchi. Cardiovascular: Regular rate, Regular Rhythm, low volume, Normal S1, Normal S2, No murmurs Abdomen: Bowel Sounds sluggish. No tenderness or distended. : No renal angle tenderness. No suprapubic tenderness. Extremities: No edema, Capillary Refill Less than 3 Seconds Skin: Dirty and mud staining toes. Musculoskeletal: No Tenderness to Palpation of Joints or Extremities Neurological: Patient follows simple command. Detail neuro cannot be evaluated accurately. No focal neurological deficit Psych/Mental Status: Flat affect. Assessment & Plan Assessment/Plan (1) Acute hyperactive alcohol withdrawal delirium: (2) Lactic acidosis: (3) Acute pancreatitis: PLAN: This is a 69 years old male patient who was admitted to PCU from ER because of fall and difficulty ambulating, found to have acute pancreatitis on CT scan abdomen with elevated lipase and also found to have electrolyte abnormalities, lactic acidosis and alcohol withdrawal. #[address] abdomen showed acute pancreatitis without pseudocyst abscess or necrotizing pancreatitis. Lipase is elevated. Patient admitted to PCU but transferred to ICU because of unresponsive episode. IV fluid, electrolyte monitoring and replacement. 10/01: Lipase level is improved 707. 10/02: Currently n.p.o. IV fluid for nutritional support. 10/03: Does not have abdominal pain. Modified barium swallow cannot be done until Tuesday. #2 hyponatremia/hypokalemia/hypophosphatemia and lactic acidosis; metabolic derangement from pancreatitis and chronic alcoholism: Due to malnutrition and alcoholism, pancreatitis and dehydration probably lactic acidosis. Magnesium is normal. Serum phosphate and potassium are low. Getting replacement. chest x- ray no acute finding. I do not suspect severe sepsis or sepsis. UA no acute infection. COVID-19 rapid antigen negative. Gram-positive cocci in blood culture, possible skin contamination. Empirically patient started on IV vancomycin and Zosyn. Follow for blood culture. Temperature 100.3 ?F. 10/02: Continue antibiotic. Urine culture shows 1000-10,000 mixed gram-positive organism suggestive of contaminants. 10/03: Blood culture shows currently negative staph possible skin contamination. No growth another bottle of blood culture. Patient noted fever in 36 hours. Infection or sepsis ruled out. Continues to have hypophosphatemia and hypokale alexandra, declines getting replaced. #3 unresponsive, hypotension and acute respiratory failure episode secondary to IV lorazepam: Patient has been getting IV Ativan as per CIWA protocol and CIWA score has been 8-10 as per nursing staff. Patient got last dose around 8:30 AM and fall unresponsive, labored/agonal breathing and hypotensive. Emergency management as per protocol, IV fluid Ringer lactate, was done and patient transferred to ICU for further management. CT head was done does not show any acute change. Furthermore, MRI brain was done which did not show acute abnormality. Patient is claustrophobic and required Ativan for MRI. 6/: Patient might have alcohol-related encephalopathy probably Wernicke's encephalopathy. #4 acute alcohol withdrawal: Continue CIWA protocol, IV thiamine and folic acid supplement. Discontinue Phenergan and hold lorazepam and other sedative medications. #5 Acute kidney injury: Due to dehydration, prerenal. Unknown baseline kidney function. Mild improvement in creatinine. 10/01: Creatinine 0.9. BUN 15. CARMELA resolved. #6 paroxysmal atrial fibrillation: He is not on anticoagulation. Patient on acebutolol with holding parameters patient hypotensive. #7 hypertension: Currently hypotensive. #8 CODE STATUS: Full code. #9 DVT prophylaxis: Subcu heparin. Total time of the visit including total time spent in counseling or coordination of care, (more than 50% of the total time, spent in obtaining medical information from nurses and other ancillary care providers,explaining to the patient about labs, imaging, diagnosis and management), during rapid/emergency response team, resuscitation, review of labs and imaging is 60 minutes Clinical Impression(s) from Imaging Studies Chest/Abdomen/Pelvis CTA 09/29/20 18:01 IMPRESSION: 1. No CT evidence of pulmonary embolism. 2. Acute pancreatitis without pseudocyst, abscess, or necrotizing pancreatitis. Electronically Signed: Jerry Perry MD at 18:59 EDT Tel , Service support , Chest X-Ray 09/29/20 18:22 IMPRESSION: Normal x-ray examination of the chest. Charges/Coding Visit Charges Inpatient E&M: 57338 Subs Hosp L2
--- NOTE | 2020-10-03 15:44 | CASEMGMT ---
Patient will be going to TCU pending pre-cert. Also, he has to have some sort of nutrition before he can go to TCU. Leanna ESPINOSA
[2020-10-04] VITALS (12 sets, daily range): BP systolic 137–155; BP diastolic 77–90; PULSE 92–114; RESP 16–18; TEMP 36.7–37; O2SAT 94–97
[2020-10-04 06:55] LABS: Hematocrit 30.1 % (40-54); Hemoglobin 10.4 g/dL (13.0-16.5); Mean Corp Hgb Conc 34.6 g/dL (32-36); Mean Corpuscular Hgb 34.9 pg (27.0-32.0); Mean Platelet Vol. 8.4 fl (6.2-12.0); POSITIVE COUNT YES; POSITIVE DIFFERENTIAL YES; POSITIVE MORPHOLOGY YES; Platelet Count 70 K/mm3 (150-450); RBC Distribution Width CV 12.5 % (11.6-14.6); RBC Distribution Width SD 45.8 fl (35.1-43.9); Red Blood Count 2.98 M/mm3 (4.6-6.2); White Blood Count 8.5 K/mm3 (4.4-11.0)
[2020-10-04 06:57] LABS: Differential Indicated MANUAL DIFF
[2020-10-04 07:16] LABS: Lymphocyte 15 % (19-41); Metamyelocyte 2 % (0-1); Monocyte 3 % (0-10); Myelocyte 10 % (0-0); Neutrophil-Segmented 55 % (47-70); Promyelocyte 15 % (0-0)
[2020-10-04 07:17] LABS: Absolute Lymphocyte Count 1.27 X10^3/uL (0.83-4.51); Absolute Neutrophil Count 4.7 X10^3/uL (2.0-7.7)
[2020-10-04 07:18] LABS: Anion Gap 11 (5-15); BUN 2 mg/dL (7-18); BUN/Creat Ratio 5.1 RATIO (10-20); Calcium,Total 7.5 mg/dL (8.5-10.1); Chloride 96 mmol/L (98-107); Creatinine, Serum 0.39 mg/dL (0.70-1.30); EST Glomerular Filtration Rate 233 mL/min (>60); Est Glom Filt Rate - Afr Amer 282 mL/min (>60); Estimated Creatinine Clearance 73.21 ml/min; Glucose 121 mg/dL (74-106); Magnesium 1.4 mg/dL (1.6-2.6); Platelet Estimate SLT DEC (ADEQ); Potassium 2.8 mmol/L (3.5-5.1); Red Cell Morphology NORM C+C NORMAL (NORM C&C); Sodium Level 136 mmol/L (136-145)
[2020-10-04 07:27] LABS: Atypical Lymphocyte 2+ %
[2020-10-04] MEDS: 0.9% Saline Lock 10 ML Syringe IV (09:11)
[2020-10-04] MEDS: Albuterol 2.5 MG/3 ML VIAL.NEB. INHALATION (09:44)
--- NOTE | 2020-10-04 13:42 | PCM.PN.HOSP ---
Documented by User: Angelica Nice NP, JACK TAMP OPERATOR-C 10/04/20 13:59 Subjective Subjective Patient seen and examined. Reports improvement in breathing. States he is hoping to be able to eat by mouth today however patient again is failed by speech therapy and plan is for modified barium swallow on Tuesday. He denies new symptoms or complaints. Objective Data Objective Data Vital Signs: Vital Signs Temp Pulse Resp BP Pulse Ox 98.5 F 92 18 142/78 H 94 10/04/20 08:33 10/04/20 12:24 10/04/20 09:47 10/04/20 08:33 10/04/20 09:47 Oxygen Flow Rate (L/min) 2 Oxygen Delivery Method Room Air Weight: 272 lb 7.861 oz Body Mass Index (BMI) 36.8 Intake & Output: Intake and Output for Last 24 Hours 10/02/20 10/03/20 10/04/20 23:59 23:59 23:59 Intake Total 3191.45 / 3191.45 1930.2833 / 1930.2833 605.45 / 605.45 Output Total 2400 / 2400 1999 / 1999 475 / 475 Balance 791.45 / 791.45 -69.7167 / -69.7167 130.45 / 130.45 Lab / Micro Data Result Diagrams: 10/04/20 06:35 10/04/20 06:35 Labs: Laboratory Results - last 24 hr 10/02/20 10/03/20 10/04/20 13:43 05:05 06:35 WBC 8.5 RBC 2.98 L Hgb 10.4 L Hct 30.1 L MCV 101.0 H MCH 34.9 H MCHC 34.6 RDW Std Deviation 45.8 H RDW Coeff of Willy 12.5 Plt Count 70 L MPV 8.4 Neut % (Auto) Not Reportable Absolute Neuts (auto) 4.7 Absolute Lymphs (auto) 1.27 Neutrophils % (Manual) 55 Lymphocytes % (Manual) 15 L Monocytes % (Manual) 3 Metamyelocytes % 2 H Myelocytes % 10 H Promyelocytes % 15 H Diff Path Review Reviewed Reviewed August foll Atypical Lymphocytes 2+ Platelet Estimate SLT DEC RBC Morphology NORM C+C Sodium Potassium Chloride Carbon Dioxide Anion Gap BUN Creatinine Estim Creat Clear Calc Est GFR (MDRD) Af Amer Est GFR (MDRD) Non-Af BUN/Creatinine Ratio Glucose Calcium Magnesium 10/04/20 06:35 WBC RBC Hgb Hct MCV MCH MCHC RDW Std Deviation RDW Coeff of Willy Plt Count MPV Neut % (Auto) Absolute Neuts (auto) Absolute Lymphs (auto) Neutrophils % (Manual) Lymphocytes % (Manual) Monocytes % (Manual) Metamyelocytes % Myelocytes % Promyelocytes % Diff Path Review Atypical Lymphocytes Platelet Estimate RBC Morphology Sodium 136 Potassium 2.8 L Chloride 96 L Carbon Dioxide 29.0 Anion Gap 11 BUN 2 L Creatinine 0.39 L Estim Creat Clear Calc 73.21 Est GFR (MDRD) Af Amer 282 Est GFR (MDRD) Non-Af 233 BUN/Creatinine Ratio 5.1 L Glucose 121 H Calcium 7.5 L Magnesium 1.4 L Micro: Microbiology 09/29/20 18:20 Blood Culture (Wb) - Anticubital Right Blood Culture - Preliminary Coag Negative Staph 09/29/20 22:45 Urine, Clean Catch Urine Culture - Final Mixed Gram Positive Organisms 09/29/20 18:25 Blood Culture (Wb) - Anticubital Left Blood Culture - Preliminary No growth in 48 hours. 09/29/20 19:35 Nasal Secretion SARS-CoV-2 Antigen (Rapid) - Final Assessment & Plan Assessment/Plan (1) Acute hyperactive alcohol withdrawal delirium: (2) Encephalopathy: PLAN: 1. Acute pancreatitis, alcoholic pancreatitis-improved. Lipase 3800 on admission. Remains n.p.o. due to swallowing difficulty. IV fluids. 2. Acute alcohol withdrawal, chronic alcohol dependence- [facility] protocol. Thiamine, folic acid supplement. [employer] consult as outpatient. 3. Dysphagia-speech therapy following. Currently NPO. Plan for modified barium swallow on 10/06/2020. 4. Acute hypoxic and hypercarbic respiratory failure-following morphine and Ativan. Improved following discontinuation of sedating regimen. Oxygen now stable on room air. 4. Metabolic encephalopathy with unresponsiveness-secondary to sedating regimen for acute presentation as noted above. Improved. 5. Electrolyte disturbances with hyponatremia/hypokalemia/hypophosphatemia-secondary to #1/#2. Replace per protocol. Trend labs. 6. Pancytopenia-suspect secondary to chronic alcohol dependence. Stable. 7. Acute kidney injury-resolved with IV fluids. 8. Paroxysmal atrial fibrillation-not on rate control regimen or anticoagulation. 9. Hypertension-stable, continue home amlodipine regimen. DVT prophylaxis-heparin subcu Discharge planning: TCU pending further swallow eval. This patient was seen by GAVIOTA Moeller under the supervision of Dr. Arambula. Documented by User: Dr. Radha Arambula MD 10/04/20 15:21 Objective Data Lab / Micro Data Result Diagrams: 10/04/20 06:35 10/04/20 06:35
[2020-10-04] MEDS: 0.9% Normal Saline 1,000 ML 75 ML IV (14:43)
[2020-10-04] MEDS: Potassium Chloride 10mEq/100mL 10 MEQ/100 ML IV.SOLN. 100 MEQ IV BOLUS ×4 (14:47→20:20)
[2020-10-04] MEDS: Metoprolol Tartrate 5 MG/5 ML Vial IV (23:13)
[2020-10-05] VITALS (13 sets, daily range): BP systolic 127–140; BP diastolic 68–87; PULSE 70–98; RESP 15–18; TEMP 36.2–36.8; O2SAT 96–97
[2020-10-05] MEDS: Albuterol 2.5 MG/3 ML VIAL.NEB. INHALATION ×2 (00:16→12:49)
[2020-10-05] MEDS: 0.9% Normal Saline 1,000 ML 75 ML IV (03:38)
[2020-10-05] MEDS: Metoprolol Tartrate 5 MG/5 ML Vial IV (05:16)
[2020-10-05 05:57] LABS: Anion Gap 10 (5-15); BUN 2 mg/dL (7-18); BUN/Creat Ratio 5.5 RATIO (10-20); Calcium,Total 6.9 mg/dL (8.5-10.1); Chloride 97 mmol/L (98-107); Creatinine, Serum 0.37 mg/dL (0.70-1.30); EST Glomerular Filtration Rate 250 mL/min (>60); Est Glom Filt Rate - Afr Amer 302 mL/min (>60); Estimated Creatinine Clearance 73.21 ml/min; Glucose 107 mg/dL (74-106); Magnesium 1.6 mg/dL (1.6-2.6); Phosphorus 2.1 mg/dL (2.5-4.9); Potassium 2.7 mmol/L (3.5-5.1); Sodium Level 135 mmol/L (136-145)
--- NOTE | 2020-10-05 06:03 | NURSING ---
critical labs results given to primary CHRISTIE Samson.
--- NOTE | 2020-10-05 06:14 | NURSING ---
DR DAIGLE WAS NOTIFIED OF POTASSIUM LEVEL 2.7 STATES HE WILL ADDRESS IT.
[2020-10-05] MEDS: Magnesium Sulfate 4gm/100mL 4 GM/100 ML IV.SOLN. IV (07:05)
[2020-10-05] MEDS: Potassium Chloride 10mEq/100mL 10 MEQ/100 ML IV.SOLN. 100 MEQ IV BOLUS ×4 (07:06→10:31)
--- NOTE | 2020-10-05 09:33 | PCM.PN.HOSP ---
Documented by User: Angelica Nice NP, ELEVATOR CONSTRUCTOR HELPER-C 10/05/20 09:37 Subjective Subjective Patient seen and examined. Evaluated by speech therapy, advanced to mechanical soft diet. Patient denies symptoms or complaints. Objective Data Objective Data Vital Signs: Vital Signs Temp Pulse Resp BP Pulse Ox 97.8 F 97 16 135/87 H 97 10/05/20 09:25 10/05/20 09:25 10/05/20 09:25 10/05/20 09:25 10/05/20 09:25 Oxygen Flow Rate (L/min) 2 Oxygen Delivery Method Room Air Weight: 272 lb 4.334 oz Body Mass Index (BMI) 36.8 Intake & Output: Intake and Output for Last 24 Hours 10/03/20 10/04/20 10/05/20 23:59 23:59 23:59 Intake Total 1930.2833 / 1930.2833 1219.45 / 1219.45 1168.75 / 1168.75 Output Total 1999 1675 / 1675 600 / 600 Balance -69.7167 / -69.7167 -455.55 / -455.55 568.75 / 568.75 Lab / Micro Data Result Diagrams: 10/04/20 06:35 10/05/20 05:22 Labs: Laboratory Results - last 24 hr 10/05/20 05:22 Sodium 135 L Potassium 2.7 L* Chloride 97 L Carbon Dioxide 28.0 Anion Gap 10 BUN 2 L Creatinine 0.37 L Estim Creat Clear Calc 73.21 Est GFR (MDRD) Af Amer 302 Est GFR (MDRD) Non-Af 250 BUN/Creatinine Ratio 5.5 L Glucose 107 H Calcium 6.9 L Phosphorus 2.1 L Magnesium 1.6 Micro: Microbiology 09/29/20 18:20 Blood Culture (Wb) - Anticubital Right Blood Culture - Final Coag Negative Staph 09/29/20 18:25 Blood Culture (Wb) - Anticubital Left Blood Culture - Final No growth in 5 days. 09/29/20 22:45 Urine, Clean Catch Urine Culture - Final Mixed Gram Positive Organisms 09/29/20 19:35 Nasal Secretion SARS-CoV-2 Antigen (Rapid) - Final Physical Exam Const alert, oriented x3 and no apparent distress Orientation / Consciousness: awake, oriented to person, oriented to place and oriented to time HEENT normocephalic and moist oral mucous membranes Eyes PERRL, EOMs intact bilaterally and conjunctivae normal Neck no lymphadenopathy Resp normal respiratory effort and clear to auscultation bilaterally Cardio regular rate, regular rhythm and no murmurs Peripheral Pulses: pulses 2+ throughout GI normal to inspection, nondistended, normoactive bowel sounds, non-tender and non-distended Extremity normal to inspection Skin no rashes or lesions noted Lesions: no lesions Rashes: no rashes Trauma: no lacerations or abrasions Neuro CN's II-XII intact bilaterally, no focal motor deficits, no sensory deficits noted and deep tendon reflexes 2+ bilaterally Psych mental status grossly normal and affect normal Assessment & Plan Assessment/Plan (1) Acute hyperactive alcohol withdrawal delirium: (2) Encephalopathy: PLAN: 1. Acute pancreatitis, alcoholic pancreatitis-improved. Lipase 3800 on admission. Denies further abdominal pain. 2. Acute alcohol withdrawal, chronic alcohol dependence- [facility] protocol. Thiamine, folic acid supplement. [employer] consult as outpatient. 3. Dysphagia-speech therapy following. Advanced to mechanical soft diet 10/05/2020. Plan for modified barium swallow on 10/06/2020. 4. Acute hypoxic and hypercarbic respiratory failure-following morphine and Ativan. Improved following discontinuation of sedating regimen. Oxygen now stable on room air. 4. Metabolic encephalopathy with unresponsiveness-secondary to sedating regimen for acute presentation as noted above. Improved. 5. Electrolyte disturbances with hyponatremia/hypokalemia/hypophosphatemia-secondary to #1/#2. Replace per protocol. Trend labs. 6. Pancytopenia-suspect secondary to chronic alcohol dependence. Stable. 7. Acute kidney injury-resolved with IV fluids. 8. Paroxysmal atrial fibrillation-resume home beta-vicenta regimen. Not on anticoagulation. 9. Hypertension-stable, continue home amlodipine regimen. DVT prophylaxis-heparin subcu Discharge planning: TCU pending modified barium swallow 10/06/2020. This patient was seen by GAVIOTA Moeller under the supervision of Dr. Arambula. Documented by User: Dr. Radha Arambula MD 10/05/20 09:47 Objective Data Lab / Micro Data Result Diagrams: 10/04/20 06:35 10/05/20 05:22
[2020-10-05] MEDS: Thiamine Hydrochloride 100 MG Tablet PO (10:09)
[2020-10-05] MEDS: Pantoprazole Sodium 40 MG Tablet PO (10:10)
[2020-10-05] MEDS: Folic Acid 1 MG Tablet PO (10:10)
[2020-10-05] MEDS: amLODIPine 10 MG Tablet PO (10:10)
[2020-10-05] MEDS: KCL 20MEQ in 0.9% NS 20 MEQ/1,000 ML IV.SOLN. 100 MEQ IV (11:51)
[2020-10-05 13:44] LABS: Anion Gap 9 (5-15); BUN 2 mg/dL (7-18); BUN/Creat Ratio 4.7 RATIO (10-20); Calcium,Total 7.5 mg/dL (8.5-10.1); Chloride 98 mmol/L (98-107); Creatinine, Serum 0.43 mg/dL (0.70-1.30); EST Glomerular Filtration Rate 209 mL/min (>60); Est Glom Filt Rate - Afr Amer 252 mL/min (>60); Estimated Creatinine Clearance 73.21 ml/min; Glucose 129 mg/dL (74-106); Magnesium 2.6 mg/dL (1.6-2.6); Potassium 3.2 mmol/L (3.5-5.1); Sodium Level 135 mmol/L (136-145)
--- NOTE | 2020-10-05 14:42 | RAD_ITS ---
HISTORY: shortness of breath EXAMINATION/TECHNIQUE: XR Chest 1 View: Portable upright AP chest x-ray COMPARISON: 09/29/20 FINDINGS: LINES/DEVICES: None. LUNGS: No consolidation, edema or effusion. No pneumothorax. MEDIASTINUM AND CARDIOVASCULAR STRUCTURES: Cardiac silhouette not enlarged. Central airways and mediastinal contour are unremarkable. BONES AND SOFT TISSUES: No acute bony abnormalities. Degenerative changes of the bilateral shoulders. RAD/Chest 1 View (Portable) IMPRESSION: No radiographic evidence of acute cardiopulmonary disease. at 1525 Reported and signed by: Clement Squires MD Electronically Signed: Clement Squires MD at 15:24 EDT Tel , Service support ,
[2020-10-05] MEDS: Potassium Chloride Oral Tablet 20 MEQ 40 MEQ PO (18:39)
[2020-10-05] MEDS: MELATONIN 10 MG TABLET PO (21:34)
[2020-10-05] MEDS: Atorvastatin Calcium 20 MG Tablet PO (21:34)
[2020-10-06 03:00] VITALS: PULSE 82
[2020-10-06 03:32] VITALS: BP 121/54; PULSE 76; RESP 15; TEMP 36.7; O2SAT 95
[2020-10-06 04:00] VITALS: RESP 15
[2020-10-06 06:24] LABS: Anion Gap 8 (5-15); BUN 2 mg/dL (7-18); BUN/Creat Ratio 4.9 RATIO (10-20); Calcium,Total 7.3 mg/dL (8.5-10.1); Chloride 102 mmol/L (98-107); Creatinine, Serum 0.41 mg/dL (0.70-1.30); EST Glomerular Filtration Rate 219 mL/min (>60); Est Glom Filt Rate - Afr Amer 264 mL/min (>60); Estimated Creatinine Clearance 73.21 ml/min; Glucose 116 mg/dL (74-106); Magnesium 1.9 mg/dL (1.6-2.6); Potassium 3.2 mmol/L (3.5-5.1); Sodium Level 137 mmol/L (136-145)
[2020-10-06 07:00] VITALS: PULSE 65
[2020-10-06 07:26] VITALS: O2SAT 97
--- NOTE | 2020-10-06 08:42 | CASEMGMT ---
KATHE called Marivel in TCU, precert was started on Tuesday. Pt also now has a diet ordered. Marivel will check on precert, let KATHE know. PASTORA Millan
[2020-10-06 08:56] VITALS: BP 125/78; PULSE 80; RESP 14; TEMP 36.9; O2SAT 98
[2020-10-06] MEDS: Pantoprazole Sodium 40 MG Tablet PO (09:01)
[2020-10-06] MEDS: Potassium Chloride Oral Tablet 20 MEQ 40 MEQ PO (09:02)
[2020-10-06] MEDS: Thiamine Hydrochloride 100 MG Tablet PO (09:08)
[2020-10-06] MEDS: amLODIPine 10 MG Tablet PO (09:08)
[2020-10-06] MEDS: Folic Acid 1 MG Tablet PO (09:08)
--- NOTE | 2020-10-06 09:14 | NURSING ---
Recieved phone call from TCU that patient was aproved. Dr Huggins requesting transfer earlier than later.
--- NOTE | 2020-10-06 09:47 | CASEMGMT ---
Addendum entered by Gaby Rothman 10/06/20 12:50: SW faxed all discharge instructions to TCU, pt will be able to go to TCU today. PASTORA Millan Original Note: Pt was approved to go to TCU today. SW let pt know, inquired if he has had the COVID vaccine. Pt has not. SW explained that he will be quarantined in TCU for 14 days since he has not been vaccinated. Pt states he does not want to stay for 14 days. SW explained he does not have to stay for 14 days, but if he were there that long, he would not be able to have visitors until after the 2 weeks. Pt states he does not want to stay long, as his daughters are coming to stay w/him from out of town on Tuesday. SW encouraged pt to stay in TCU for at least a brief stay to work on his strength prior to going home. Pt states understanding. SW will continue to follow, it is anticipated pt will be discharged to TCU later today. PASTORA Millan
--- NOTE | 2020-10-06 10:19 | PCM.TXEXTCAR ---
Diet 10/05/20 08:29 Diet: Cardiac - Heart Healthy Food consistency:: Mechanical (Minced/Moist) Liquid Consistency:: Regular/Thin Is pt able to select menu?: Yes Diet Comments: No straws. 1:1 supervision Routine Orders/Code Status Enema Type: Fleetz Enema Frequency: Daily PRN Suppository Type: Dulcolax 10mg Suppository Frequency: Daily PRN Routine Lab Work: - (Daily BMP, mag and Phos until electrolytes remain normal) Code Status: Full Code Wound(s) left foot: Wound Type: Abrasion left leg: Wound Type: Abrasion rt arm: Wound Type: Abrasion Suggestions for Active Care Change Position every (hours): 2 Times a day to sit in chair: 3 Therapies Physical Therapy: Eval and Treat Occupational Therapy: Eval and Treat Problem/Diagnosis (1) Acute hyperactive alcohol withdrawal delirium: Status: Acute (2) Encephalopathy: Status: Acute Allergies/Procedures Done in Hospital Allergies No Known Allergies Allergy (Verified 09/29/20 17:46) environmental allergies Allergy (Intermediate, Uncoded 09/29/20 17:46) eyes water, asthma Procedures: None Type of Care/Length of Stay Estimated LOS: Convalescent Care Less Than 30 days Type of Care Needed: Skilled Rehab Potential: Fair Prognosis: Fair Additional Orders/Day of Discharge H&P will serve as current which was dated: 09/29/20 Day of Discharge: 10/06/20 Dietary and Speech Recommendations Dietitian Recommendations/Changes: Rec advance diet as tolerated to cardiac, fat restricted- consistency per NEEDLE LOOM TENDER; 120mL ensure clear 4x/day w/ medpass when PO diet advanced. Discharge Plan Admission Admit Date/Time: 09/29/20 21:26 Primary Reason for Your Visit: Alcohol withdrawal Attending Provider: Joey Ortega Primary Care Provider: Waqas Haro Consulting Providers: Ceasar Rapp ; Justin Caraballo ; Janice Desai CHIEF SUSTAINABILITY OFFICER Instructions Additional Instructions / Restrictions: Recommend [facility] following discharge from TCU. Discharge Orders/Prescriptions Prescriptions: New folic acid 1 mg Tablet 1 mg PO BREAKFAST Qty: 0 RF: 0 thiamine HCl (vitamin B1) [Vitamin B-1] 100 mg Tablet 100 mg PO BREAKFAST Qty: 0 RF: 0 melatonin 10 mg Tablet, Sublingual 10 mg PO QHS Qty: 0 RF: 0 potassium, sodium phosphates [Phos-NaK] 280-160-250 mg Powder In Packet 1 packet PO TID Qty: 0 RF: 0 Continued losartan 100 mg tablet 100 mg PO DAILY Qty: 90 RF: 3 amlodipine 10 mg tablet 10 mg PO DAILY Qty: 30 RF: 11 atorvastatin 20 MG tablet 20 mg PO QHS RF: 0 albuterol sulfate 1 PUFF inhaler 2 puff inhalation Q4H PRN PRN (Reason: Sob &/Or Wheezing) RF: 0 aspirin 325 mg tablet 325 mg PO DAILY RF: 0 azelastine 137 mcg (0.1 %) aerosol,spray 1 spray INTRANASAL BID PRN (Reason: allergies) RF: 0 acebutolol 200 mg capsule 200 mg PO BID RF: 0 Referrals / Follow Up: Waqas Haro PA [Primary Care Provider] - In 1 Week Disposition Disposition (needs filled in before D/C Order can be placed): Nursing Home Facility
--- NOTE | 2020-10-06 10:41 | DS.PCM_ITS ---
Documented by User: Angelica Nice NP, MASON LINER-C 10/06/20 10:46 Providers Date of Admission: 09/29/20 Date of Discharge: 10/06/20 Primary Care Physician: ALTHEA Stevens Consultations 09/30/20 12:16 Consult: Resident Physician In Radiology / Pulmonary Medicine Routine Consulting Provider: [facility] Reason for Consult: rapid response with hypotension, unresponsive, agonal breathing EMERGENT Consult: No MD Notified: Yes Date Notified:: 09/30/20 Time Notified: 09:51 Method of Notification: Text Method of Consult:: In-Person Reason For Visit: ACUTE PANCREATITIS,CARMELA,HYPOKALEMIA,HYPONATREMIA Diagnosis Discharge Diagnosis (1) Acute hyperactive alcohol withdrawal delirium: Status: Acute Code(s): F10.231 - Alcohol dependence with withdrawal delirium (2) Encephalopathy: Status: Acute Code(s): G93.40 - Encephalopathy, unspecified Medications at Discharge Home Medications albuterol sulfate 2 puff INHALATION Q4H PRN PRN 07/24/16 atorvastatin 20 mg PO QHS 07/24/16 aspirin 325 mg tablet 325 mg PO DAILY tab 07/31/19 azelastine 137 mcg (0.1 %) nasal spray aerosol 1 spray INTRANASAL BID PRN 05/06/20 acebutolol 200 mg PO BID 09/29/20 amlodipine 10 mg PO DAILY 10/06/20 folic acid 1 mg PO BREAKFAST 10/06/20 losartan 100 mg PO DAILY 10/06/20 melatonin 10 mg PO QHS 10/06/20 potassium, sodium phosphates [Phos-NaK] 1 packet PO TID 10/06/20 thiamine HCl (vitamin B1) [Vitamin B-1] 100 mg PO BREAKFAST 10/06/20 Hospital Course Operations None Procedures None Summary of Care Provided Minutes Spent on Discharge: 35 Hospital Course: Patient is a 69-year-old male admitted 09/29/2020 due to fall, weakness. 1. Acute pancreatitis, alcoholic pancreatitis- Lipase 3800 on admission. Denies further abdominal pain. Resolved. 2. Acute alcohol withdrawal, chronic alcohol dependence- CIWA protocol during admission. Thiamine, folic acid supplement. [facility] consult as outpatient. 3. Dysphagia-speech therapy following. Advanced to mechanical soft diet 10/05/2020. Modified barium swallow on 10/06/2020 prior to DC to TCU. Continue with dietary modifications per speech therapy recommendations. 4. Acute hypoxic and hypercarbic respiratory failure-following morphine and Ativan. Improved following discontinuation of sedating regimen. Oxygen now stable on room air. 4. Metabolic encephalopathy with unresponsiveness-secondary to sedating regimen and electrolyte disturbances. Resolved. 5. Electrolyte disturbances with hyponatremia/hypokalemia/hypophosphatemia- secondary to #1/#2. Replace per protocol. Trend labs. Discharged with K-Phos supplement, IV mag prior to discharge. 6. Pancytopenia-suspect secondary to chronic alcohol dependence. Stable. 7. Acute kidney injury-resolved with IV fluids. 8. Paroxysmal atrial fibrillation-resume home beta-vicenta regimen. Not on anticoagulation. 9. Hypertension-stable, continue home amlodipine regimen. Physical Exam Const alert, oriented x3 and no apparent distress Orientation / Consciousness: awake, oriented to person, oriented to place and oriented to time HEENT normocephalic and moist oral mucous membranes Eyes PERRL, EOMs intact bilaterally and conjunctivae normal Neck no lymphadenopathy Resp normal respiratory effort and clear to auscultation bilaterally Cardio regular rate, regular rhythm and no murmurs Peripheral Pulses: pulses 2+ throughout GI normal to inspection, nondistended, normoactive bowel sounds, non-tender and non-distended Extremity normal to inspection Skin no rashes or lesions noted Lesions: no lesions Rashes: no rashes Trauma: no lacerations or abrasions Neuro CN's II-XII intact bilaterally, no focal motor deficits, no sensory deficits noted and deep tendon reflexes 2+ bilaterally Psych mental status grossly normal and mildly flat affect Patient seen and examined prior to discharge. Physical assessment as noted below. Patient is stable for discharge with follow up recommendations as noted above. This patient was seen by GAVIOTA Moeller under the supervision of Dr. Ortega. ABG / Lab / Microbiology Data Result Diagrams: 10/04/20 06:35 10/06/20 04:54 Laboratory: Laboratory Results - last 24 hr 10/05/20 10/06/20 10/06/20 13:02 04:54 04:54 Sodium 135 L 137 Potassium 3.2 L 3.2 L Chloride 98 102 Carbon Dioxide 28.0 27.0 Anion Gap 9 8 BUN 2 L 2 L Creatinine 0.43 L 0.41 L Estim Creat Clear Calc 73.21 73.21 Est GFR (MDRD) Af Amer 252 264 Est GFR (MDRD) Non-Af 209 219 BUN/Creatinine Ratio 4.7 L 4.9 L Glucose 129 H 116 H Calcium 7.5 L 7.3 L Phosphorus 2.0 L Magnesium 2.6 1.9 Microbiology: Microbiology 09/29/20 18:20 Blood Culture - Final Blood Culture (Wb) - Anticubital Right Coag Negative Staph 09/29/20 18:25 Blood Culture - Final Blood Culture (Wb) - Anticubital Left No growth in 5 days. Microbiology 09/29/20 18:20 Blood Culture (Wb) - Anticubital Right Blood Culture - Final Coag Negative Staph 09/29/20 18:25 Blood Culture (Wb) - Anticubital Left Blood Culture - Final No growth in 5 days. 09/29/20 22:45 Urine, Clean Catch Urine Culture - Final Mixed Gram Positive Organisms 09/29/20 19:35 Nasal Secretion SARS-CoV-2 Antigen (Rapid) - Final Radiography Diagnostic Testing: Radiology Impression Chest X-Ray 10/05/20 14:42 IMPRESSION: No radiographic evidence of acute cardiopulmonary disease. at 1525 Reported and signed by: Clement Squires MD Electronically Signed: Clement Squires MD at 15:24 EDT Tel , Service support , Meaningful Use Info Meaningful Use Diagnoses (Choose all that apply): None applicable Discharge Plan Admission Admit Date/Time: 09/29/20 21:26 Primary Reason for Your Visit: Alcohol withdrawal Attending Provider: Joey Ortega Primary Care Provider: Waqas Haro Consulting Providers: Ceasar Rapp ; Justin Caraballo ; Janice Desai NP Instructions Additional Instructions / Restrictions: Recommend referral to [facility] following discharge from TCU. Discharge Orders/Prescriptions Prescriptions: Continued atorvastatin 20 MG tablet 20 mg PO QHS RF: 0 albuterol sulfate 1 PUFF inhaler 2 puff inhalation Q4H PRN PRN (Reason: Sob &/Or Wheezing) RF: 0 aspirin 325 mg tablet 325 mg PO DAILY RF: 0 azelastine 137 mcg (0.1 %) aerosol,spray 1 spray INTRANASAL BID PRN (Reason: allergies) RF: 0 acebutolol 200 mg capsule 200 mg PO BID RF: 0 No Action thiamine HCl (vitamin B1) [Vitamin B-1] 100 mg tablet 100 mg PO BREAKFAST RF: 0 amlodipine 10 mg tablet 10 mg PO DAILY RF: 0 folic acid 1 mg tablet 1 mg PO BREAKFAST RF: 0 losartan 100 mg tablet 100 mg PO DAILY RF: 0 potassium, sodium phosphates [Phos-NaK] 280-160-250 mg powder in packet 1 packet PO TID RF: 0 melatonin 10 mg tablet, sublingual 10 mg PO QHS RF: 0 Referrals / Follow Up: Waqas Haro PA [Primary Care Provider] - In 1 Week Disposition Disposition (needs filled in before D/C Order can be placed): [facility] Documented by User: Dr. Joey Ortega MD 10/06/20 16:29 Providers Date of Admission: 09/29/20 Reason For Visit: ACUTE PANCREATITIS,CARMELA,HYPOKALEMIA,HYPONATREMIA Medications at Discharge Home Medications albuterol sulfate 2 puff INHALATION Q4H PRN PRN 07/24/16 atorvastatin 20 mg PO QHS 07/24/16 aspirin 325 mg tablet 325 mg PO DAILY tab 07/31/19 azelastine 137 mcg (0.1 %) nasal spray aerosol 1 spray INTRANASAL BID PRN 05/06/20 acebutolol 200 mg PO BID 09/29/20 amlodipine 10 mg PO DAILY 10/06/20 folic acid 1 mg PO BREAKFAST 10/06/20 losartan 100 mg PO DAILY 10/06/20 melatonin 10 mg PO QHS 10/06/20 potassium, sodium phosphates [Phos-NaK] 1 packet PO TID 10/06/20 thiamine HCl (vitamin B1) [Vitamin B-1] 100 mg PO BREAKFAST 10/06/20 ABG / Lab / Microbiology Data Result Diagrams: 10/04/20 06:35 10/06/20 04:54 Discharge Plan Admission Admit Date/Time: 09/29/20 21:26 Primary Reason for Your Visit: Alcohol withdrawal Attending Provider: Joey Ortega Primary Care Provider: Waqas Haro Consulting Providers: Ceasar Rapp ; Justin Caraballo ; Janice Desai MASON LINER Instructions Additional Instructions / Restrictions: Recommend referral to [facility] following discharge from TCU. Discharge Orders/Prescriptions Prescriptions: Continued atorvastatin 20 MG tablet 20 mg PO QHS RF: 0 albuterol sulfate 1 PUFF inhaler 2 puff inhalation Q4H PRN PRN (Reason: Sob &/Or Wheezing) RF: 0 aspirin 325 mg tablet 325 mg PO DAILY RF: 0 azelastine 137 mcg (0.1 %) aerosol,spray 1 spray INTRANASAL BID PRN (Reason: allergies) RF: 0 acebutolol 200 mg capsule 200 mg PO BID RF: 0 No Action thiamine HCl (vitamin B1) [Vitamin B-1] 100 mg tablet 100 mg PO BREAKFAST RF: 0 amlodipine 10 mg tablet 10 mg PO DAILY RF: 0 folic acid 1 mg tablet 1 mg PO BREAKFAST RF: 0 losartan 100 mg tablet 100 mg PO DAILY RF: 0 potassium, sodium phosphates [Phos-NaK] 280-160-250 mg powder in packet 1 packet PO TID RF: 0 melatonin 10 mg tablet, sublingual 10 mg PO QHS RF: 0 Referrals / Follow Up: Waqas Haro PA [Primary Care Provider] - In 1 Week Disposition Disposition (needs filled in before D/C Order can be placed): [facility] Charges/Coding Addendum Addendum: Dr. Ortega: I personally reviewed the chart and examined the patient, and agree with the above findings. 69-year-old male presented to the hospital with acute alcohol pancreatitis as well as acute alcohol withdrawal. He completed the alcohol withdrawal protocol and was able to resolve his abdominal pain. He did develop some dysphagia during his stay and speech therapy was consulted and ordered a modified barium swallow for today. He will continue with the dietary modifications based on his barium swallow as outlined above and will plan for discharge to the transitional care unit for rehab. During his stay he did have a complication with a combination of morphine and Ativan and developed an acute hypoxic and hypercapnic respiratory failure which has also since resolved. Once discharged from the transitional care unit, he will need to follow-up with [facility] as an outpatient as well as his PCP in 3 to 5 days. Visit Charges Inpatient E&M: [id number] Disch Hosp
--- NOTE | 2020-10-06 10:56 | ST.MBS ---
Modified Barium Swallow - Patient Information Study Date: 10/06/20 Study Time: 10:30 Direct Billable Minutes: 120 Total Minutes procedure & reportin Diagnosis: dysphagia Referring Physician: Radha Arambula Reason for Referral: MBS recommended per COTTON DISPATCHER to objective assess swallow function Medical History: Asthma, GERD (gastroesophageal reflux disease), Hypertension, Obesity, Paroxysmal atrial fibrillation Patient is a 69-year-old male admitted 09/29/2020 due to fall, weakness w/ hospitalization to manage the followin. Acute pancreatitis, alcoholic pancreatitis- Lipase 3800 on admission. Denies further abdominal pain. Resolved. 2. Acute alcohol withdrawal, chronic alcohol dependence- CIWA protocol during admission. Thiamine, folic acid supplement. [facility] consult as outpatient. 3. Dysphagia-speech therapy following. Advanced to mechanical soft diet 10/05/2020. Modified barium swallow on 10/06/2020 prior to DC to TCU. Continue with dietary modifications per speech therapy recommendations. 4. Acute hypoxic and hypercarbic respiratory failure-following morphine and Ativan. Improved following discontinuation of sedating regimen. Oxygen now stable on room air. 4. Metabolic encephalopathy with unresponsiveness-secondary to sedating regimen and electrolyte disturbances. Resolved. 5. Electrolyte disturbances with hyponatremia/hypokalemia/hypophosphatemia-secondary to #1/#2. Replace per protocol. Trend labs. Discharged with K-Phos supplement, IV mag prior to discharge. 6. Pancytopenia-suspect secondary to chronic alcohol dependence. Stable. 7. Acute kidney injury-resolved with IV fluids. 8. Paroxysmal atrial fibrillation-resume home beta-vicenta regimen. Not on anticoagulation. 9. Hypertension-stable, continue home amlodipine regimen. Current Diet Ordered: minced and moist textures/thin liquids Dentition: Natural Teeth, Decay, Missing Teeth Mental Status: WNL Respiratory Status: Oxygenating on Room Air - Penetration-Aspiration Scale Penetration-Aspiration Scale: OBJECTIVE ASSESSMENT OF SWALLOW FUNCTION (QUANTITATIVE ? PER TRIAL): PENETRATION / ASPIRATION SCALE ([place]YATT): 1 = does not enter airway 2 = enters airway/above vocal folds/ejected 3 = enters airway/above vocal folds/not ejected 4 = enters airway/contacts vocal folds/ejected 5 = enters airway/contacts vocal folds/not ejected 6 = enters airway/below vocal folds/ejected 7 = enters airway/below vocal folds/not ejected despite effort 8 = enters airway/below vocal folds/no effort VIDEOFLOROSCOPIC SCALE SCORE (WYATT): Grade I = aspiration of material that has penetrated into the laryngeal vestibule, intact cough reflex Grade II = aspiration < 10 % of the bolus, intact cough reflex Grade III = aspiration of < 10 % of the bolus, reduced cough reflex or aspiration of > 10 % of the bolus, intact cough reflex Grade IV = aspiration of > 10 % of the bolus, reduced cough reflex - Penetration-Aspiration Scale Score Thin Liquid via teaspoon Result: 2= enter airway/above vocal folds/ejected Thin Liquid via teaspoon Trial 2 Result: 1= does not enter airway Thin Liquid via small single sip from cup Result: 1= does not enter airway Thin Liquid via sequential sips from cup Result: 2= enter airway/above vocal folds/ejected Thin Liquid via single sip from straw Result: 2= enter airway/above vocal folds/ejected Pudding Result: 1= does not enter airway Pudding - Esophageal Screen Result: 1= does not enter airway Cookie Result: 1= does not enter airway Thin Liquid via single sip from straw Trial 2 Result: 1= does not enter airway - Oral Phase Labial Seal: No Labial Escape Tongue Control During Bolus Hold: Cohesive bolus between tongue to palatal seal Bolus Preparation/Mastication: Slow prolonged chewing/mashing with complete recollection Bolus Transport/Lingual Motion: Repetitive/disorganized tongue motion Oral Residue: Trace residue lining oral structures - Pharyngeal Phase Initiation of Pharyngeal Swallow: No visible initiation at any location Soft Palate Elevation: No bolus between soft palate and pharyngeal wall Laryngeal Elevation: Partial superior movement thyroid cart/partial apprx aryt-epig petiole Anterior Hyoid Excursion: Partial anterior movement Epiglottic Movement: Complete inversion Laryngeal Vestibule Closure at Height of Swallow: Complete; no air/contrast in laryngeal vestibule Pharyngeal Stripping Wave: Present - complete Tongue Base Retraction: Trace column of contrast between tongue base & post. pharyngeal wall Pharyngeal Residue: Trace residue within or on pharyngeal structures - Esophageal Phase Esophageal Clearance: Esophageal retention w/ retrograde flow below pharyngoesophageal seg. - Treatment Strategies Effects of treatment strategies attemped:: Reduction in bolus volume = effective to improve oral control and swallow coordination - Diagnosis/Impression Diagnosis: mild oropharyngeal dysphagia Impression: This patient presents with mild oropharyngeal dysphagia characterized by disorganized oral transportation of liquids w/ premature pharyngeal resulting in inconsistent transient laryngeal vestibule penetration before/during swallow onset w/ complete ejection. Trace residue retention w/in the valleculae. Mild cricopharyngeal hypertrophy noted, although prominence of the CP had no impact on pharyngeal to esophageal bolus transit/clearance. Esophageal screening revealed slowed clearance w/ retention and retrograde flow below the PES. Throat clearing and eructation were noted during this study. Suspect esophageal reflux and/or sinus drainage to be contributing factors. If these symptoms persist and are bothersome to the patient, outpatient FEES should be considered to further assess oropharyngeal structure and swallow function. - Recommendations Diet: Regular Textures - Easy to Chew, Thin Liquids Compensatory Strategies: Small Bites, Small Sips - one sip at a time, straws OK, Slow Rate, Sitting upright, Remain sitting upright for 30 minutes after PO intake - GERD precautions Supervision: Assist as needed Recommend Repeat Modified Barium Swallow: No Need for Skilled Speech Therapy Services: Yes Comment: Skilled ST intervention recommended to instruct w/ use of compensatory strategies and assess diet tolerance w/ advanced texture diet. Education Completed: 1. Described result of evaluation., 2. Pt understands evaluation & agrees with goals and treatment plan. Comment: Educated patient re: findings/recommendations immediately following MBS conclusion. Pt verbalized understanding and agreement w/ the recommended plan of care and denied any further questions at this time. - Status Active ST Patient: Active - Contact Information [facility] Speech Therapy:: Nury Wilson M.A., CCC-COTTON DISPATCHER [facility] Speech Language Pathologist [place] [address] x [phone] [email or web address]
[2020-10-06 13:28] LABS: Pathologist Review Reviewed
[2020-10-06] MEDS: Na Biphos/Potassium Phosphate PACKET 1 PACKET PO (13:41)
--- NOTE | 2020-10-06 14:06 | PHA.DC.MR ---
Pharmacy Service has performed discharge medication reconciliation for this patient. The patient's discharge medication list was reviewed for discrepancies and discrepancies were resolved. Home Medications albuterol sulfate 2 puff INHALATION Q4H PRN PRN 07/24/16 atorvastatin 20 mg PO QHS 07/24/16 aspirin 325 mg tablet 325 mg PO DAILY tab 07/31/19 losartan 100 mg tablet 100 mg PO DAILY #90 tab 03/18/20 azelastine 137 mcg (0.1 %) nasal spray aerosol 1 spray INTRANASAL BID PRN 05/06/20 amlodipine 10 mg tablet 10 mg PO DAILY #30 tab 07/01/20 acebutolol 200 mg PO BID 09/29/20 folic acid 1 mg PO BREAKFAST #0 tab 10/06/20 melatonin 10 mg PO QHS #0 tab 10/06/20 potassium, sodium phosphates [Phos-NaK] 1 packet PO TID #0 ea 10/06/20 thiamine HCl (vitamin B1) [Vitamin B-1] 100 mg PO BREAKFAST #0 tab 10/06/20
[2020-10-08 20:25] LABS: Vitamin B1, Thiamine 176.8 nmol/L (66.5-200.0)
== END 2020-10-06 14:41 | disposition skilled nursing facility (03) | DRG 438 ==
LOC: ED 18:26 → PCU 21:44 → ICU 09-30 13:26 → PCU 10-02 13:29
PROVIDERS: Family Medicine; Internal Medicine; Internal Medicine Critical Care Medicine; Nurse Practitioner Family; Admitting Provider Hospitalist; Emergency Provider Student in an Organized Health Care Education/Training Program; PCP Physician Assistant; Visit Provider Family Medicine
DX: K85.20 Alcohol induced acute pancreatitis without necrosis or infection (principal); J96.02 Acute respiratory failure with hypercapnia; G93.41 Metabolic encephalopathy; J96.01 Acute respiratory failure with hypoxia; E87.1 Hypo-osmolality and hyponatremia; F10.231 Alcohol dependence with withdrawal delirium; N17.9 Acute kidney failure, unspecified; E87.2 Acidosis; D61.818 Other pancytopenia; T42.4X5A Adverse effect of benzodiazepines, initial encounter; E87.6 Hypokalemia; E88.81 Metabolic syndrome and other insulin resistance; J45.909 Unspecified asthma, uncomplicated; I48.0 Paroxysmal atrial fibrillation; K21.9 Gastro-esophageal reflux disease without esophagitis; E78.5 Hyperlipidemia, unspecified; I10 Essential (primary) hypertension; E86.0 Dehydration; R13.12 Dysphagia, oropharyngeal phase; E87.8 Other disorders of electrolyte and fluid balance, not elsewhere classified; E83.52 Hypercalcemia; Z82.49 Family history of ischemic heart disease and other diseases of the circulatory system; Z80.8 Family history of malignant neoplasm of other organs or systems; Z96.641 Presence of right artificial hip joint; I95.9 Hypotension, unspecified
CPT/HCPCS: 36415; 36600; 70450; 70551; 71045; 71275; 74174; 74230; 80048; 80053; 80076; 80307; 81001; 82077; 82550; 82607; 82746; 82803; 82962; 83036; 83605; 83690; 83735; 83880; 84100; 84425; 84443; 84484; 85025; 85045; 85379; 85610; 85730; 87040; 87086; 87088; 87426; 92507; 92526; 92610; 92611; 93005; 94002; 94003; 94640; 97110; 97116; 97162; 97167; 97530; 97535; 99251; 99285; J7030; J7040; J7050; J7120; Q9967; A4216; G0463; J3490

== ENCOUNTER 2020-10-06 14:46 | Inpatient (IN) | payer MEDICARE, SELFPAY ==
[2020-09-29 22:07] VITALS: BMI 36.8
[2020-10-06 15:17] VITALS: BP 149/84; PULSE 78; RESP 22; TEMP 36.8; O2SAT 92
[2020-10-06 15:49] VITALS: BMI 35.8
[2020-10-06 16:17] VITALS: RESP 18; O2SAT 97
[2020-10-06] MEDS: Nystatin Powder 15gm Bottle 1 APPLIC TOPICAL (21:55)
[2020-10-06] MEDS: Atorvastatin Calcium 20 MG Tablet PO (21:55)
[2020-10-06] MEDS: MELATONIN 10 MG TABLET PO (21:55)
[2020-10-06] MEDS: Na Biphos/Potassium Phosphate PACKET 1 PACKET PO (21:56)
[2020-10-07] MEDS: Losartan Potassium 100 MG Tablet PO (05:24)
[2020-10-07] MEDS: amLODIPine 10 MG Tablet PO (05:24)
[2020-10-07] MEDS: Nystatin Powder 15gm Bottle 1 APPLIC TOPICAL ×2 (05:26→21:04)
[2020-10-07] MEDS: Na Biphos/Potassium Phosphate PACKET 1 PACKET PO ×3 (05:27→21:04)
[2020-10-07 05:29] VITALS: BP 148/86; PULSE 81; RESP 18; TEMP 36.6; O2SAT 98
[2020-10-07 05:48] LABS: Hematocrit 29.4 % (40-54); Hemoglobin 9.9 g/dL (13.0-16.5); Mean Corp Hgb Conc 33.7 g/dL (32-36); Mean Corpuscular Hgb 34.5 pg (27.0-32.0); Mean Corpuscular Volume 102.4 fL (80-94); Mean Platelet Vol. 9.9 fl (6.2-12.0); POSITIVE COUNT YES; POSITIVE DIFFERENTIAL YES; POSITIVE MORPHOLOGY YES; Platelet Count 67 K/mm3 (150-450); RBC Distribution Width CV 12.8 % (11.6-14.6); RBC Distribution Width SD 48.3 fl (35.1-43.9); Red Blood Count 2.87 M/mm3 (4.6-6.2); White Blood Count 7.3 K/mm3 (4.4-11.0)
[2020-10-07 05:52] LABS: Differential Indicated MANUAL DIFF
[2020-10-07 06:08] LABS: Anion Gap 5 (5-15); BUN 3 mg/dL (7-18); BUN/Creat Ratio 7.1 RATIO (10-20); Calcium,Total 7.5 mg/dL (8.5-10.1); Chloride 105 mmol/L (98-107); Creatinine, Serum 0.42 mg/dL (0.70-1.30); EST Glomerular Filtration Rate 211 mL/min (>60); Est Glom Filt Rate - Afr Amer 255 mL/min (>60); Estimated Creatinine Clearance 73.21 ml/min; Glucose 114 mg/dL (74-106); Magnesium 1.9 mg/dL (1.6-2.6); Potassium 3.5 mmol/L (3.5-5.1); Sodium Level 138 mmol/L (136-145)
[2020-10-07 06:13] LABS: Metamyelocyte 2 % (0-1); Myelocyte 2 % (0-0); Neutrophil-Band 2 % (0-5); Neutrophil-Segmented 81 % (47-70); Phosphorus 2.4 mg/dL (2.5-4.9); Total Cells Counted 100 (MANUAL DIFF)
[2020-10-07 06:14] LABS: Lymphocyte 7 % (19-41); Monocyte 5 % (0-10); Promyelocyte 1 % (0-0)
[2020-10-07 06:15] LABS: Absolute Neutrophil Count 6.1 X10^3/uL (2.0-7.7); Neutrophil # 6.06 X10^3/uL (2.7-7.7)
[2020-10-07 06:16] LABS: Absolute Lymphocyte Count 0.51 X10^3/uL (0.83-4.51); Lymphocyte # 0.51 X10^3/ul (0.83-4.51); Platelet Estimate SLT DEC (ADEQ)
[2020-10-07 06:17] LABS: Red Cell Morphology NORM C+C NORMAL (NORM C&C)
[2020-10-07] MEDS: Aspirin 325 MG Tablet PO (09:08)
[2020-10-07] MEDS: Folic Acid 1 MG Tablet PO (09:08)
[2020-10-07] MEDS: Thiamine Hydrochloride 100 MG Tablet PO (09:09)
--- NOTE | 2020-10-07 10:11 | CASEMGMT ---
Addendum entered by Agnes James 10/07/20 14:33: Spoke with dtr, Ryanne, whom expressed concerns with pt's depression, alcoholism and isolation at home. Explained below information and pt agreeable to mental health and alcohol counseling. SW will refer to [facility] at [place] for outpatient services. Dr to discuss medication with pt as well. Dtr expressed great appreciation and antonio that pt agreed to services. States her family has been trying for many years to get pt to agree with an antidepressant. Dtr explained her and her sister will be in town 10/08 for about a week and had several questions about pt's tx plan and insurance. Offered to schedule care plan meeting 10/08 while in town as pt was approved for compassionate care visits since he is in isolation until 10/20. Dtr agreed and very appreciative. Scheduled meeting for 10/08 at 11:20 am. Explained insurance but will not receive outcome by time of the meeting, but will update pt once outcome is given. Dtr expressed understanding and appreciation. Will continue to follow. Original Note: Social Work Met with patient for initial assessment. Discussed patient's code status. Pt confirmed full code. MOLST form reviewed, communication to , placed in chart. Pt agreeable to complete to advanced directives and would like to name both dtrs as HCPOA. SW to complete prior to [facility]. Explained [facility] insurance NRD 10/08 and continued stay is not guaranteed. Pt states the goal is to return home. Two dtrs that live out of town are coming into town 10/08 to clean pt's house and get things organized then stay for a little bit to assist pt. Discussed ensuring pt is stronger and medically stable prior to returning home. Pt agreeable. Inquired about [facility] resources r/t pt's fall and being home alone - pt denied as he always keeps his cell phone on him. Discussed patient's alcoholism. Pt explained his sister unexpectedly 5 years ago which started his drinking. States he had trouble sleeping, but couldn't identify why, and would wake up in the middle of the night to take a few shots and go back to sleep. Then his dog of 15 yrs became ill and 2 years ago and he increased his drinking. Pt states within the last 6 months he drinks 10-12 shots of whiskey a day. Inquired about counseling or medications to assist with mood. Pt denied but would be open to starting med and counseling. He would like to get his life under control. Encouraged to allow start of medication during stay to monitor and SW offered to make counseling appt prior to DC. Discussed having good intentions to stop drinking but returning to environment and routine can trigger feelings and drinking again. Pt agreed. Left note for Will make appt for pt closer to DC. Pt appreciative of conversation with SW and SW offered continued assistance throughout stay. Will continue to follow. Agnes James, RADIOGRAPHER TECHNOLOGIST PARTS COUNTER SALES PERSON
[2020-10-07 10:57] LABS: Pathologist Review Reviewed
--- NOTE | 2020-10-07 11:14 | NURSING ---
PT DAUGHTERS UPDATED AND DAUGHTER STONEY ASKED TO TALKED TO LOCKS TENDER DUE TO CONCERNS ON PT. THIS NURSE STATED SHE WOULD LET LOCKS TENDER KNOW. DAUGHTERS ALSO COMING IN FROM OUT OF STATE AND WANTS TO SEE PT. TOOK NAMES AND WILL LET FISH HOUSEKEEPER AND ROSITA KNOW.
[2020-10-07] MEDS: Tuberculin,Purif.prot.deriv. 50 TU/ML Vial 0.1 ML ID (11:34)
[2020-10-07 13:38] VITALS: BP 119/76; PULSE 80; RESP 17; TEMP 36.7; O2SAT 95
--- NOTE | 2020-10-07 17:54 | PCM.HP.STD ---
[facility] - General General Date of Admission: 10/06/20 Date of Service: 10/07/20 Chief Complaint: Physical debility secondary to alcoholism, pancreatitis and acute alcohol withdrawal delirium. [facility] Narrative GUERLINE ROCKWELL, is a 69 M with a past medical history of alcoholism, asthma, disc metabolic syndrome X, GERD, paroxysmal supraventricular tachycardia, hyperlipidemia, hypertension, obesity and allergic rhinitis who presented to the emergency department at [facility] on 09/29/2020 because he fell at home and was unable to get up. He complained of weakness and stated his legs gave out and he collapsed on the floor and could not get up. He also complained of being short of breath. Routine blood work in the emergency department revealed thrombocytopenia with a platelet count of 103,000. Sodium was low at 127 and the potassium was low at 2.8. Creatinine was increased at 1.5 and a lactic acid was increased at 5.6. Lipase was increased at 3860. He told the admitting hospitalist that he had been drinking every day for the past year. The initial EKG showed sinus tachycardia with a left bundle branch block. Troponin was within normal limits. Chest x-ray showed no acute findings. CTA of the chest and abdomen showed no dissection and no pulmonary emboli even though the D-dimer was markedly elevated. CT of the abdomen was significant for acute pancreatitis without evidence of pseudocyst, abscess or necrotizing pancreatitis. He was admitted to the hospital with a diagnosis of acute pancreatitis and acute alcohol withdrawal. He was started on a CIWA protocol, thiamine and folic acid. Consult was placed for one eighty as an OP. He was transferred to the Transitional Care Unit on 10/06/20 for debility due to longstanding alcoholism, ELYTE abnormalities, pancreatitis and generalized weakness. He tells me that he wants to stop drinking. He started a few years ago when his sister while walking a dog......COD never identified. This was followed by the of his old nigerien beavers which was his best friend. He recently got another puppy but it is a large breed and it is too much for him to handle. Prior to a few years ago he was not a heavy drinker. He admits to being depressed for a short time when he was going through a divorce. He was on Zoloft for a short time and then he stopped it because he felt it was not helping. He denies feeling anxious. He mostly keeps to himself and did a lot of walking in the [place] with his dog until the dog and the drinking escalated. 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 He has never been to psycho therapy. He has children and his 2 dtr's are coming to visit and they plan on getting him a smaller dog and helping him to get his life in order again. His hobbies include reading, walking in the [place], watching old westerns on TV and going on social media to talk with people he has met on social media. HE want to stop drinking and he is willing to start an antidepressant and to go to alcohol rehab and counselling. He does not recall much about what happened after he was brought into the ED. [facility] Medical History (Updated 10/07/20 @ 19:[address] Brooklyn Huggins, ) Alcoholism Asthma Dysmetabolic syndrome X GERD (gastroesophageal reflux disease) History of paroxysmal supraventricular tachycardia Hyperlipidemia Hypertension Insomnia disorder Obesity Paroxysmal atrial fibrillation Home Medications albuterol sulfate 2 puff INHALATION Q4H PRN PRN 07/24/16 [History Last Taken Unknown] atorvastatin 20 mg PO QHS 07/24/16 [History Last Taken 09/28/20] aspirin 325 mg tablet 325 mg PO DAILY tab 07/31/19 [History Last Taken 09/29/20] azelastine 137 mcg (0.1 %) nasal spray aerosol 1 spray INTRANASAL BID PRN 05/06/20 [History Last Taken Unknown] acebutolol 200 mg PO BID 09/29/20 [History Last Taken 09/29/20] amlodipine 10 mg PO DAILY 10/06/20 [History Last Taken Unknown] folic acid 1 mg PO BREAKFAST 10/06/20 [History Last Taken Unknown] losartan 100 mg PO DAILY 10/06/20 [History Last Taken Unknown] melatonin 10 mg PO QHS 10/06/20 [History Last Taken Unknown] potassium, sodium phosphates [Phos-NaK] 1 packet PO TID 10/06/20 [History Last Taken Unknown] thiamine HCl (vitamin B1) [Vitamin B-1] 100 mg PO BREAKFAST 10/06/20 [History Last Taken Unknown] Allergy/AdvReac Type Severity Reaction Status Date / Time No Known Allergies Allergy Verified 09/29/20 17:46 environmental allergies Allergy Intermediate eyes Uncoded 09/29/20 17:46 water, asthma Family History Mother CAD (coronary artery disease) Arthritis Sister , MVA Motor vehicle accident Grandfather Throat cancer Surgical History 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) Social History (Updated 10/07/20 @ 19:[address] Brooklyn Huggins DO) Smoking Status: Never smoker alcohol intake: current alcohol intake frequency: 0-2 drinks per day details: He admits to having 10-12 shots of whiskey a day to help him sleep. substance use type: does not use caffeine: No ROS Constitutional Constitutional: Reports difficulty sleeping and lethargy Eyes Eyes: Reports burning and periorbital itching ENT HEENT: Denies dizziness, dysphagia, headache(s) or sore throat Cardiovascular Cardiovascular: Reports lightheadedness and weakness in extremities; Denies chest pain, leg edema, leg ulcers, palpitations or radiating jaw, neck or arm pain Respiratory/Chest Respiratory/Chest: Denies chest tightness, dry cough, shortness of breath at rest or shortness of breath with exertion Gastrointestinal Gastrointestinal: Denies change in bowel habits, constipation, diarrhea, hematemesis or rectal bleeding Genitourinary Genitourinary: Denies burning urination, change in urinary stream, urinary frequency, urinary hesitancy or urinary incontinence Musculoskeletal Musculoskeletal: Reports muscle weakness Integumentary Integumentary: Reports other Details: has many bruises on his arms from IV and lab sticks ; Denies wounds Neurologic Neurologic: Reports confusion and dizziness; Denies abnormal speech, focal weakness, frequent falls, numbness, radicular pain or seizure-like activity Psychiatric Psychiatric: Reports abnormal sleep pattern, anhedonia, cognitive impairment, depression, difficulty concentrating and other Details: he was confused at presentation to the ED and he had acute alcohol withdrawal. Does not remeber much from his time on the acute side of the hospital. ; Denies auditory hallucinations, suicidal ideation or tactile hallucinations Endocrine Endocrinology: Denies polydipsia or polyuria Hematologic/Lymphatic Hematologic/Lymphatic: Reports easy bruising Allergic/Immunologic Allergic/Immunologic: Reports itchy eyes and seasonal rhinorrhea Vital Signs Vital Signs Vital Signs: 10/07/20 05:29 10/07/20 13:38 Temperature 97.9 F 98.1 F Temperature Source Temporal Temporal Pulse Rate 81 80 Respiratory Rate 18 17 Blood Pressure 148/86 H 119/76 Blood Pressure Mean 106 90 Blood Pressure Source Monitor Monitor Blood Pressure Position Semi-Fowlers Supine Blood Pressure Location Right Forearm Right Arm Pulse Ox 98 95 Oxygen Delivery Method Room Air Room Air Weight Weight: 251 lb 15.99 oz Body Mass Index (BMI) 35.8 Physical Exam Const alert, oriented x3 and no apparent distress Constitutional Narrative: Lying in bed talking with me and making good eye contact General Appearance: cooperative and comfortable HEENT normocephalic Mouth: dry mucous membranes Eyes PERRL and EOMs intact bilaterally Neck no lymphadenopathy, supple and no carotid bruits Chest Chest: symmetrical chest wall rise Resp normal respiratory effort, no use of accessory muscles and clear to auscultation bilaterally Effort and Inspection: able to speak in complete sentences Cardio regular rate, regular rhythm, S1 normal heart sound, S2 normal heart sound, no rub and no gallops Cardio Narrative: he has a MM at the second RICS (2/6) and it radiates to the LLSB, apex and into the left axilla Jugular Venous Distention: Negative for JVD GI normal to inspection, nondistended, normoactive bowel sounds, soft to palpation and non-tender Extremity no clubbing, cyanosis or edema and no calf tenderness Skin no rashes or lesions noted and no wounds General Skin Exam: ecchymosis Neuro CN's II-XII intact bilaterally, moves all extremities, no focal motor deficits and no sensory deficits noted Psych mental status grossly normal, thought process normal, cooperative, speech normal, denies hallucinations, denies homicidal ideation and denies suicidal ideation Appearance: grossly normal Activity / Motor Behavior: appropriate eye contact Mood & Affect: depressed Thought Content: normal thought content Memory / Cognition: memory grossly intact Results Lab / Micro Data Result Diagrams: 10/07/20 05:10 10/07/20 05:10 Labs: Laboratory Results - last 24 hr 10/07/20 10/07/20 10/07/20 05:10 05:10 05:10 WBC 7.3 RBC 2.87 L Hgb 9.9 L Hct 29.4 L MCV 102.4 H MCH 34.5 H MCHC 33.7 RDW Std Deviation 48.3 H RDW Coeff of Willy 12.8 Plt Count 67 L MPV 9.9 Neut % (Auto) Not Reportable Absolute Neuts (auto) 6.1 Absolute Lymphs (auto) 0.51 L Total Counted 100 Neutrophils % (Manual) 81 H Band Neutrophils % 2 Lymphocytes % (Manual) 7 L Monocytes % (Manual) 5 Metamyelocytes % 2 H Myelocytes % 2 H Promyelocytes % 1 H Diff Path Review Reviewed Platelet Estimate SLT DEC RBC Morphology NORM C+C Sodium 138 Potassium 3.5 Chloride 105 Carbon Dioxide 28.0 Anion Gap 5 BUN 3 L Creatinine 0.42 L Estim Creat Clear Calc 73.21 Est GFR (MDRD) Af Amer 255 Est GFR (MDRD) Non-Af 211 BUN/Creatinine Ratio 7.1 L Glucose 114 H Calcium 7.5 L Phosphorus 2.4 L Magnesium 1.9 Micro: Microbiology 10/06/20 16:00 SARS-CoV-2 Antigen (Rapid) - Final Mucosa - Nose Assessment & Plan Assessment/Plan (1) Physical debility: (2) Alcoholism: (3) Acute pancreatitis: QUALIFIERS: Pancreatitis type: alcohol induced Acute pancreatitis complication: no infection or necrosis Qualified Code(s): K85.20 - Alcohol induced acute pancreatitis without necrosis or infection (4) Acute hyperactive alcohol withdrawal delirium: (5) Thrombocytopenia: (6) Leukopenia: QUALIFIERS: Leukopenia type: lymphocytopenia Qualified Code(s): D72.810 - Lymphocytopenia (7) Macrocytic anemia: (8) Hypomagnesemia: (9) Hyponatremia: (10) Hyperglycemia: (11) Hypophosphatemia: (12) Hypokalemia: (13) Depression: QUALIFIERS: Depression Type: reactive depression Qualified Code(s): F32.9 - Major depressive disorder, single episode, unspecified (14) Hypertension: QUALIFIERS: Hypertension type: essential hypertension Qualified Code(s): I10 - Essential (primary) hypertension (15) Paroxysmal atrial fibrillation: (16) History of paroxysmal supraventricular tachycardia: (17) Dysmetabolic syndrome X: (18) Hyperlipidemia: QUALIFIERS: Hyperlipidemia type: unspecified Qualified Code(s): E78.5 - Hyperlipidemia, unspecified (19) GERD (gastroesophageal reflux disease): QUALIFIERS: Esophagitis presence: without esophagitis Qualified Code(s): K21.9 - Gastro-esophageal reflux disease without esophagitis (20) Obesity: QUALIFIERS: Obesity type: due to excess calories Obesity classification: adult class 2 (BMI 35 - 39.9) Serious obesity comorbidity presence: with serious comorbidity Body mass index: BMI 35.0-35.9 Qualified Code(s): E66.01 - Morbid (severe) obesity due to excess calories; Z68.35 - Body mass index [BMI] 35.0-35.9, adult (21) Asthma: QUALIFIERS: Asthma severity: unspecified severity Asthma persistence: intermittent Asthma complication type: uncomplicated Qualified Code(s): J45.20 - Mild intermittent asthma, uncomplicated (22) History of total right hip replacement: (23) Hypocalcemia: (24) Insomnia disorder: PLAN: PLAN PT for gait stability OT for ADL's Analgesics as needed Bowel protocol Fall precautions Assess for Anxiety/Depression GI prophylaxis - not currently receiving any prophylaxis and he has no complaints but if the heme stool is positive will strt a PPI DVT prophylaxis with SCD's and LUIS nathan. When the plt's recover will add Lovenox Follow up with cardiology, PCP, alcohol rehab following DC from [facility] Rehab ST[facility] Trazodone at HS for insomnia since the Melatonin is not effective. Start Wellbutrin XL 150 mg Q AM Naphcon A for allergic conjunctivitis Check a HGBA1C, Lipid panel. Charges/Coding Visit Charges Inpatient E&M: 03510 Init Hosp L3
[2020-10-07 19:59] LABS: Hemoglobin A1c 4.7 % (3.8-5.6)
[2020-10-07] MEDS: traZODone 50 MG Tablet PO (21:04)
[2020-10-07] MEDS: Atorvastatin Calcium 20 MG Tablet PO (21:04)
[2020-10-08] MEDS: Na Biphos/Potassium Phosphate PACKET 1 PACKET PO ×3 (05:30→21:05)
[2020-10-08] MEDS: amLODIPine 10 MG Tablet PO (05:31)
[2020-10-08] MEDS: buPROPion (XL) 150 MG TABLET.XL PO (05:31)
[2020-10-08] MEDS: Losartan Potassium 100 MG Tablet PO (05:31)
[2020-10-08 05:32] VITALS: BP 148/79; PULSE 76; RESP 18; TEMP 36.8; O2SAT 97
[2020-10-08] MEDS: Nystatin Powder 15gm Bottle 1 APPLIC TOPICAL ×2 (05:32→21:07)
[2020-10-08 06:12] LABS: Cholesterol 77 mg/dL (200); High Density Lipoprotein 44 mg/dL; Triglycerides 62 mg/dL; Very Low Density Lipoprotein 12 mg/dL (5-40)
[2020-10-08] MEDS: Thiamine Hydrochloride 100 MG Tablet PO (08:21)
[2020-10-08] MEDS: Aspirin 81 MG TAB.CHEW PO (08:21)
[2020-10-08] MEDS: Folic Acid 1 MG Tablet PO (08:21)
[2020-10-08 13:53] VITALS: BP 128/71; PULSE 82; RESP 18; TEMP 36.6; O2SAT 97
--- NOTE | 2020-10-08 14:27 | CASEMGMT ---
Plan of care meeting held today with pt and two daughters present. Pt is participating and progressing in PT/OT/ST. Pt lives at home alone with 3 steps to enter and a flight of stairs to basement for laundry. Pt has a shower seat and grab bars. Therapy is recommending a hip kit and hand held shower. Pt dgts are understanding and will look into this. Pt will also likely need a wheeled walker at time of discharge. SW provided resources for medical alert systems. Pt and daughters educated on pt insurance coverage and update is due today with continued stay not guaranteed. SW will continue to follow for discharge planning and emotional support. CHRISTEL Bang
--- NOTE | 2020-10-08 14:47 | CASEMGMT ---
Social Work SW received update from insurance. Next review date of 10/17 with expected discharge of 10/20/20. Pt notified and expresses understanding. SW offered to contact dgts with inforation. Pt denies stating he is expecting to speak with them later today and will update with information. CHRISTEL Bang
--- NOTE | 2020-10-08 15:41 | PCM.PN.RX ---
Progress Note - Pharmacy Subjective: TCU Admission Objective: Allergies No Known Allergies Allergy (Verified 09/29/20 17:46) environmental allergies Allergy (Intermediate, Uncoded 09/29/20 17:46) eyes water, asthma Current Medications Generic Name Dose Route Start Last Admin Trade Name Freq PRN Reason Stop Dose Admin Acebutolol HCl 200 mg 10/06/20 18:00 10/08/20 05:31 Acebutolol Hcl 200 Mg Capsule PO 200 mg BID DOROTHY Administration Albuterol Sulfate 2 puff 10/06/20 15:21 Albuterol Sulfate 8 Gm Inhaler (60 Puffs) INHALATION Q4H PRN PRN Sob &/Or Wheezing Amlodipine Besylate 10 mg 10/07/20 06:00 10/08/20 05:31 Amlodipine 10 Mg Tablet PO 10 mg DAILY [facility] Administration Aspirin 81 mg 10/08/20 08:00 10/08/20 08:21 Aspirin 81 Mg Tab.Chew PO 81 mg BREAKFAST DOROTHY Administration Atorvastatin Calcium 20 mg 10/06/20 22:00 10/07/20 21:04 Atorvastatin Calcium 20 Mg Tablet PO 20 mg QHS [facility] Administration Azelastine HCl 1 spray 10/06/20 15:21 Azelastine Hcl Nasal.Sry NASAL BID PRN allergies Bisacodyl 10 mg 10/06/20 15:25 Bisacodyl 10 Mg Suppository RC DAILY PRN Constipation Bupropion HCl 150 mg 10/08/20 06:00 10/08/20 05:31 Bupropion (Xl) 150 Mg Tablet.Xl PO 150 mg DAILY [facility] Administration Folic Acid 1 mg 10/07/20 08:00 10/08/20 08:21 Folic Acid 1 Mg Tablet PO 1 mg BREAKFAST [facility] Administration Losartan Potassium 100 mg 10/07/20 06:00 10/08/20 05:31 Losartan Potassium 100 Mg Tablet PO 100 mg DAILY [facility] Administration Naphazoline HCl/Pheniramine Maleate 1 drp 10/07/20 22:00 Naphazoline Hcl/Phenir Mal 10 Ml Drops EACH EYE 4X/DAY [facility] Nutritional Formula (Lactose Free) 120 ml 10/07/20 22:00 10/08/20 13:40 Ensure Enlive 120 Ml Liquid PO 120 ml 4X/DAY [facility] Administration Nystatin 1 applic 10/06/20 22:00 10/08/20 05:32 Nystatin Powder 15gm Bottle TOPICAL 1 applic 0600,2200 DOROTHY Administration Protocol Oxycodone HCl 5 mg 10/08/20 07:50 Oxycodone 5 Mg Tablet PO Q4H PRN PRN Pain Score 6-10 Potassium Phos/Sodium Phos 1 packet 10/06/20 22:00 10/08/20 13:41 Na Biphos/Potassium Phosphate Packet PO 1 packet TID DOROTHY Administration Thiamine HCl 100 mg 10/07/20 08:00 10/08/20 08:21 Thiamine Hydrochloride 100 Mg Tablet PO 100 mg BREAKFAST DOROTHY Administration Trazodone HCl 50 mg 10/07/20 22:00 10/07/20 21:04 Trazodone 50 Mg Tablet PO 50 mg QHS DOROTHY Administration Tuberculin PPD 0.1 ml 10/14/20 10:00 Tuberculin,Purif.Prot.Deriv. 50 Tu/Ml Vial ID 10/14/20 10:01 X1 ONE Problem List (Last Reviewed 10/07/20 @ 18:[address] Brooklyn Huggins, DO) Insomnia disorder (Acute) Hyperglycemia (Acute) Hypocalcemia (Acute) Thrombocytopenia (Acute) Macrocytic anemia (Acute) Depression (Acute) Alcoholism (Acute) Physical debility (Acute) Hypophosphatemia (Acute) Hypertension (Chronic) Paroxysmal atrial fibrillation (Chronic) History of paroxysmal supraventricular tachycardia (Chronic) Dysmetabolic syndrome X (Chronic) Hyperlipidemia (Chronic) GERD (gastroesophageal reflux disease) (Chronic) Obesity (Chronic) Asthma (Chronic) History of total right hip replacement (Chronic 07/28/10) Vital Signs Temp Pulse Resp BP Pulse Ox 97.8 F 82 18 128/71 H 97 10/08/20 13:53 10/08/20 13:53 10/08/20 13:53 10/08/20 13:53 10/08/20 13:53 Oxygen Delivery Method Room Air Weight: 114.305 kg Body Mass Index (BMI) 35.8 Sodium 138 mmol/L (136-145) 10/07/20 05:10 Potassium 3.5 mmol/L (3.5-5.1) 10/07/20 05:10 Chloride 105 mmol/L (98-107) 10/07/20 05:10 Carbon Dioxide 28.0 mmol/L (21.0-32.0) 10/07/20 05:10 Anion Gap 5 (5-15) 10/07/20 05:10 BUN 3 mg/dL (7-18) L 10/07/20 05:10 Creatinine 0.42 mg/dL (0.70-1.30) L 10/07/20 05:10 Est GFR (MDRD) Af Amer 255 mL/min (>60) 10/07/20 05:10 Est GFR (MDRD) Non-Af 211 mL/min (>60) 10/07/20 05:10 BUN/Creatinine Ratio 7.1 RATIO (10-20) L 10/07/20 05:10 Glucose 114 mg/dL (74-106) H 10/07/20 05:10 Assessment/Plan: 1. Pain: oxycodone 5mg PO Q4H PRN pain 6-10. Please continue to monitor for increased pain and PRN usage. 2. Hypertension/atrial fibrillation: acebutolol 200mg PO BID, amlodipine 10mg PO daily, losartan 100mg PO daily and aspirin 81mg PO breakfast. Please continue to monitor HR (last 82), BP (last 128/71), renal function, swelling, S/S of bleeding. 3. Hyperlipidemia: atorvastatin 20mg PO QHS. Please continue to monitor lipid panel (last 10/08/20) and for muscle pain. 4. Asthma: albuterol inhaler 2puffs Q4H PRN SOB &/or wheezing. Please continue to monitor for SOB and PRN usage. 5. Hypokalemia/hypophosphatemia: Neutra-Phos 1 packet PO TID. Please continue to monitor potassium (last 3.5mmol/L) and phosphorous levels (last 2.4 mg/dL). 6. Overall nutrition: folic acid 1mg PO breakfast and thiamine 100mg PO breakfast. Please continue to monitor. 7. Allergies: azelastine nasal spray 1 spray nasally BID PRN allergies. Please continue to monitor for allergies and PRN usage. Psychotropic Medications: 1. Depression: bupropion XL 150mg PO daily. Patient just started medication, GDR not appropriate. Please continue to monitor for seizures, insomnia, and drowsiness. 2. Insomnia: trazodone 50mg PO QHS. Please continue to monitor for insomnia. Patient just started medication, GDR not appropriate. Unnecessary Medications: None Bowel Regimen: bisacodyl 10mg RC daily PRN constipation. Please continue to monitor for constipation and PRN usage. Date of Note:: 10/08/20
[2020-10-08] MEDS: Atorvastatin Calcium 20 MG Tablet PO (21:05)
[2020-10-08] MEDS: traZODone 50 MG Tablet PO (21:05)
[2020-10-08] MEDS: oxyCODONE 5 MG Tablet PO (21:06)
[2020-10-09] MEDS: amLODIPine 10 MG Tablet PO (05:05)
[2020-10-09] MEDS: Losartan Potassium 100 MG Tablet PO (05:05)
[2020-10-09] MEDS: buPROPion (XL) 150 MG TABLET.XL PO (05:05)
[2020-10-09] MEDS: Na Biphos/Potassium Phosphate PACKET 1 PACKET PO ×3 (05:05→23:19)
[2020-10-09] MEDS: Nystatin Powder 15gm Bottle 1 APPLIC TOPICAL ×2 (05:07→23:20)
[2020-10-09 05:08] VITALS: BP 130/67; PULSE 80; RESP 16; TEMP 36.2; O2SAT 97
[2020-10-09] MEDS: Thiamine Hydrochloride 100 MG Tablet PO (09:36)
[2020-10-09] MEDS: Aspirin 81 MG TAB.CHEW PO (09:36)
[2020-10-09] MEDS: Folic Acid 1 MG Tablet PO (09:36)
--- NOTE | 2020-10-09 10:42 | NURSING ---
DAUGHTERS UPDATED AT VISIT.
[2020-10-09 14:11] VITALS: BP 112/63; PULSE 84; RESP 16; TEMP 37.1; O2SAT 97
--- NOTE | 2020-10-09 14:44 | CASEMGMT ---
BIMS and PHQ9 interviews completed on this date for [facility]DS assessment. CHRISTEL Bang
[2020-10-09] MEDS: oxyCODONE 5 MG Tablet PO (23:18)
[2020-10-09] MEDS: Atorvastatin Calcium 20 MG Tablet PO (23:20)
[2020-10-09] MEDS: traZODone 50 MG Tablet PO (23:20)
[2020-10-10 05:00] VITALS: BP 131/79; PULSE 83; RESP 18; O2SAT 97
[2020-10-10] MEDS: Losartan Potassium 100 MG Tablet PO (05:19)
[2020-10-10] MEDS: amLODIPine 10 MG Tablet PO (05:19)
[2020-10-10] MEDS: Na Biphos/Potassium Phosphate PACKET 1 PACKET PO ×3 (05:19→22:41)
[2020-10-10] MEDS: buPROPion (XL) 150 MG TABLET.XL PO (05:19)
[2020-10-10] MEDS: Nystatin Powder 15gm Bottle 1 APPLIC TOPICAL ×2 (05:21→22:41)
[2020-10-10 05:49] LABS: Hematocrit 31.1 % (40-54); Hemoglobin 10.2 g/dL (13.0-16.5)
[2020-10-10 06:02] LABS: Magnesium 1.6 mg/dL (1.6-2.6); Phosphorus 4.3 mg/dL (2.5-4.9)
[2020-10-10] MEDS: Aspirin 81 MG TAB.CHEW PO (09:08)
[2020-10-10] MEDS: Thiamine Hydrochloride 100 MG Tablet PO (09:08)
[2020-10-10] MEDS: Folic Acid 1 MG Tablet PO (09:08)
[2020-10-10 11:51] VITALS: PULSE 86; RESP 16; O2SAT 95
[2020-10-10 13:52] VITALS: BP 124/78; PULSE 82; RESP 17; TEMP 36.6; O2SAT 97
--- NOTE | 2020-10-10 14:58 | NURSING ---
Pt on 1500 fluid restriction and does not want to drink ensures, Dr. Hampton updated n.o. to d/c ensure.
[2020-10-10] MEDS: traZODone 50 MG Tablet PO (22:40)
[2020-10-10] MEDS: Atorvastatin Calcium 20 MG Tablet PO (22:40)
[2020-10-10] MEDS: oxyCODONE 5 MG Tablet PO (22:47)
[2020-10-11 06:25] VITALS: BP 100/51; PULSE 86; RESP 20; TEMP 36.6; O2SAT 94
[2020-10-11] MEDS: buPROPion (XL) 150 MG TABLET.XL PO (06:29)
[2020-10-11] MEDS: Losartan Potassium 100 MG Tablet PO (06:29)
[2020-10-11] MEDS: amLODIPine 10 MG Tablet PO (06:29)
[2020-10-11] MEDS: Nystatin Powder 15gm Bottle 1 APPLIC TOPICAL ×2 (06:30→20:36)
[2020-10-11] MEDS: Na Biphos/Potassium Phosphate PACKET 1 PACKET PO ×3 (06:30→20:30)
[2020-10-11 06:35] VITALS: BP 142/75; PULSE 81
[2020-10-11] MEDS: Thiamine Hydrochloride 100 MG Tablet PO (07:58)
[2020-10-11] MEDS: Folic Acid 1 MG Tablet PO (07:58)
[2020-10-11] MEDS: Aspirin 81 MG TAB.CHEW PO (07:58)
[2020-10-11 14:49] VITALS: BP 119/63; PULSE 63; RESP 16; TEMP 37.1; O2SAT 95
[2020-10-11 20:15] VITALS: BP 114/68; PULSE 84; RESP 16; TEMP 36.7; O2SAT 95
[2020-10-11] MEDS: traZODone 50 MG Tablet PO (20:30)
[2020-10-11] MEDS: Atorvastatin Calcium 20 MG Tablet PO (20:30)
[2020-10-11] MEDS: oxyCODONE 5 MG Tablet PO (20:35)
[2020-10-12 05:00] VITALS: BP 126/62; PULSE 83; RESP 16; TEMP 36.6; O2SAT 96
[2020-10-12] MEDS: Losartan Potassium 100 MG Tablet PO (05:20)
[2020-10-12] MEDS: Na Biphos/Potassium Phosphate PACKET 1 PACKET PO ×3 (05:20→22:12)
[2020-10-12] MEDS: amLODIPine 10 MG Tablet PO (05:20)
[2020-10-12] MEDS: Nystatin Powder 15gm Bottle 1 APPLIC TOPICAL ×2 (05:20→22:14)
[2020-10-12] MEDS: buPROPion (XL) 150 MG TABLET.XL PO (05:20)
[2020-10-12] MEDS: Folic Acid 1 MG Tablet PO (08:10)
[2020-10-12] MEDS: Aspirin 81 MG TAB.CHEW PO (08:10)
[2020-10-12] MEDS: Thiamine Hydrochloride 100 MG Tablet PO (08:11)
[2020-10-12 14:44] VITALS: BP 125/72; PULSE 84; RESP 18; TEMP 36.9; O2SAT 95
[2020-10-12 22:09] VITALS: PULSE 80; RESP 16; O2SAT 96
[2020-10-12] MEDS: traZODone 50 MG Tablet PO (22:12)
[2020-10-12] MEDS: Atorvastatin Calcium 20 MG Tablet PO (22:12)
[2020-10-12] MEDS: oxyCODONE 5 MG Tablet PO (22:12)
[2020-10-13 04:30] VITALS: BP 138/69; PULSE 80; RESP 16; TEMP 36.6; O2SAT 96
[2020-10-13] MEDS: amLODIPine 10 MG Tablet PO (06:00)
[2020-10-13] MEDS: Na Biphos/Potassium Phosphate PACKET 1 PACKET PO ×3 (06:00→21:21)
[2020-10-13] MEDS: buPROPion (XL) 150 MG TABLET.XL PO (06:00)
[2020-10-13] MEDS: Losartan Potassium 100 MG Tablet PO (06:00)
[2020-10-13] MEDS: Nystatin Powder 15gm Bottle 1 APPLIC TOPICAL ×2 (06:02→21:24)
[2020-10-13] MEDS: Aspirin 81 MG TAB.CHEW PO (07:51)
[2020-10-13] MEDS: Thiamine Hydrochloride 100 MG Tablet PO (07:51)
[2020-10-13] MEDS: Folic Acid 1 MG Tablet PO (07:51)
[2020-10-13 14:43] VITALS: BP 107/65; PULSE 86; RESP 18; TEMP 36.3; O2SAT 95
[2020-10-13] MEDS: oxyCODONE 5 MG Tablet PO (21:21)
[2020-10-13] MEDS: traZODone 50 MG Tablet PO (21:21)
[2020-10-13] MEDS: Atorvastatin Calcium 20 MG Tablet PO (21:21)
[2020-10-13 23:00] VITALS: PULSE 77; RESP 16; O2SAT 97
[2020-10-14 05:00] VITALS: BP 101/55; PULSE 82; RESP 16; TEMP 36.9; O2SAT 94
[2020-10-14 05:53] LABS: Absolute Lymphocyte Count 0.39 X10^3/uL (0.83-4.51); Absolute Neutrophil Count 3.9 X10^3/uL (2.0-7.7); Basophil# 0.02 X10^3/uL; Basophil% 0.4 % (0-1); Eosinophil# 0.03 X10^3/uL; Eosinophils% 0.6 % (0-5); Hematocrit 29.1 % (40-54); Hemoglobin 9.6 g/dL (13.0-16.5); Lymphocyte # 0.39 X10^3/ul (0.83-4.51); Lymphocyte % 8.1 % (19-41); Mean Corpuscular Hgb 34.5 pg (27.0-32.0); Mean Corpuscular Volume 104.7 fL (80-94); Monocyte# 0.43 X10^3/uL; Monocyte% 8.9 % (0-10); NRBC Flagged by Analyzer 0 % (0-5); Neutrophil # 3.87 X10^3/uL (2.7-7.7); Neutrophil % 80.5 % (47-70); POSITIVE DIFFERENTIAL YES; Platelet Count 119 K/mm3 (150-450); RBC Distribution Width CV 12.2 % (11.6-14.6); RBC Distribution Width SD 47.3 fl (35.1-43.9); Red Blood Count 2.78 M/mm3 (4.6-6.2); White Blood Count 4.8 K/mm3 (4.4-11.0)
[2020-10-14 05:57] LABS: Differential Indicated SCAN CRITERIA MET
[2020-10-14] MEDS: Na Biphos/Potassium Phosphate PACKET 1 PACKET PO ×3 (06:06→21:11)
[2020-10-14] MEDS: Losartan Potassium 100 MG Tablet PO (06:06)
[2020-10-14] MEDS: buPROPion (XL) 150 MG TABLET.XL PO (06:06)
[2020-10-14] MEDS: amLODIPine 10 MG Tablet PO (06:06)
[2020-10-14] MEDS: Nystatin Powder 15gm Bottle 1 APPLIC TOPICAL ×2 (06:07→21:11)
[2020-10-14 06:23] LABS: Anion Gap 7 (5-15); BUN 5 mg/dL (7-18); BUN/Creat Ratio 10.2 RATIO (10-20); Calcium,Total 8.3 mg/dL (8.5-10.1); Chloride 105 mmol/L (98-107); Creatinine, Serum 0.49 mg/dL (0.70-1.30); EST Glomerular Filtration Rate 179 mL/min (>60); Est Glom Filt Rate - Afr Amer 216 mL/min (>60); Estimated Creatinine Clearance 72.16 ml/min; Glucose 120 mg/dL (74-106); Potassium 3.1 mmol/L (3.5-5.1); Sodium Level 139 mmol/L (136-145)
[2020-10-14] MEDS: Potassium Chloride Oral Tablet 20 MEQ 40 MEQ PO (09:50)
[2020-10-14] MEDS: Folic Acid 1 MG Tablet PO (09:51)
[2020-10-14] MEDS: Thiamine Hydrochloride 100 MG Tablet PO (09:51)
[2020-10-14] MEDS: Aspirin 81 MG TAB.CHEW PO (09:51)
[2020-10-14] MEDS: Tuberculin,Purif.prot.deriv. 50 TU/ML Vial 0.1 ML ID (09:54)
[2020-10-14 10:00] VITALS: PULSE 88; RESP 16; O2SAT 96
--- NOTE | 2020-10-14 11:30 | NURSING ---
Sports Management Intern up to floor to do Picc line. Pt INR is 4.7 Sports Management Intern unable to do Picc line at this time d/t INR but okay to do Midline. Dr. Hampton called and updated and gave order to do mindline instead of Picc.
[2020-10-14 14:37] VITALS: BP 140/71; PULSE 58; RESP 17; TEMP 36.7; O2SAT 98
[2020-10-14] MEDS: oxyCODONE 5 MG Tablet PO (21:10)
[2020-10-14] MEDS: Atorvastatin Calcium 20 MG Tablet PO (21:11)
[2020-10-14] MEDS: traZODone 50 MG Tablet PO (21:11)
[2020-10-15 05:00] VITALS: BP 127/76; PULSE 86; RESP 18; O2SAT 97
[2020-10-15] MEDS: buPROPion (XL) 150 MG TABLET.XL PO (06:30)
[2020-10-15] MEDS: amLODIPine 10 MG Tablet PO (06:30)
[2020-10-15] MEDS: Nystatin Powder 15gm Bottle 1 APPLIC TOPICAL ×2 (06:30→20:13)
[2020-10-15] MEDS: Na Biphos/Potassium Phosphate PACKET 1 PACKET PO ×3 (06:30→20:12)
[2020-10-15] MEDS: Losartan Potassium 100 MG Tablet PO (06:30)
[2020-10-15] MEDS: Potassium Chloride Oral Tablet 20 MEQ PO (08:20)
[2020-10-15] MEDS: Thiamine Hydrochloride 100 MG Tablet PO (08:20)
[2020-10-15] MEDS: Folic Acid 1 MG Tablet PO (08:20)
[2020-10-15] MEDS: Aspirin 81 MG TAB.CHEW PO (08:20)
[2020-10-15 14:23] VITALS: BP 116/59; PULSE 84; RESP 16; TEMP 36.6; O2SAT 98
--- NOTE | 2020-10-15 18:35 | NURSING ---
Pt c/o sore tongue he says he thinks it is thrush he has had it before and that is what it feels like. Dr. Hampton updated, new order for nystatin swish and swallow.
[2020-10-15] MEDS: traZODone 50 MG Tablet PO (20:12)
[2020-10-15] MEDS: Atorvastatin Calcium 20 MG Tablet PO (20:12)
[2020-10-15] MEDS: oxyCODONE 5 MG Tablet PO (20:12)
[2020-10-15] MEDS: NYSTATIN 500,000 UNIT/5 ML UDC 500000 UNIT PO (20:13)
[2020-10-15 20:19] VITALS: RESP 18
[2020-10-16 04:59] VITALS: BP 120/62; PULSE 82; RESP 18; TEMP 36.7; O2SAT 95
[2020-10-16] MEDS: NYSTATIN 500,000 UNIT/5 ML UDC 500000 UNIT PO ×4 (05:04→21:08)
[2020-10-16] MEDS: Na Biphos/Potassium Phosphate PACKET 1 PACKET PO ×3 (05:04→21:08)
[2020-10-16] MEDS: Losartan Potassium 100 MG Tablet PO (05:04)
[2020-10-16] MEDS: amLODIPine 10 MG Tablet PO (05:04)
[2020-10-16] MEDS: buPROPion (XL) 150 MG TABLET.XL PO (05:04)
[2020-10-16] MEDS: Nystatin Powder 15gm Bottle 1 APPLIC TOPICAL ×2 (05:05→21:09)
[2020-10-16 05:57] LABS: Hematocrit 31.2 % (40-54); Hemoglobin 10.1 g/dL (13.0-16.5)
[2020-10-16 06:24] LABS: Anion Gap 5 (5-15); BUN 5 mg/dL (7-18); BUN/Creat Ratio 8.3 RATIO (10-20); Calcium,Total 8.7 mg/dL (8.5-10.1); Chloride 104 mmol/L (98-107); EST Glomerular Filtration Rate 141 mL/min (>60); Est Glom Filt Rate - Afr Amer 171 mL/min (>60); Estimated Creatinine Clearance 72.16 ml/min; Glucose 106 mg/dL (74-106); Potassium 3.4 mmol/L (3.5-5.1); Sodium Level 138 mmol/L (136-145)
[2020-10-16] MEDS: Thiamine Hydrochloride 100 MG Tablet PO (08:32)
[2020-10-16] MEDS: Potassium Chloride Oral Tablet 20 MEQ PO (08:32)
[2020-10-16] MEDS: Folic Acid 1 MG Tablet PO (08:33)
[2020-10-16] MEDS: Aspirin 81 MG TAB.CHEW PO (08:33)
[2020-10-16 10:15] VITALS: PULSE 80; RESP 18; O2SAT 98
--- NOTE | 2020-10-16 10:27 | MDS.RN ---
Information for the mds was obtained from review of the clinical record, interview of resident, staff, and direct observation of residents care.
--- NOTE | 2020-10-16 10:35 | NURSING ---
THIS NURSE TRIMMED SOME LOOSE DRY SKIN OFF OF PT FEET,LOTIONED THEM UP AND TRIMMED A FEW TOE NAILS PER PT REQUEST. PT TOLERATED WELL AND STATED THANK YOU.
--- NOTE | 2020-10-16 11:42 | NURSING ---
PT RECEIVED THE J&J VACCINATION TODAY FROM HEALTH DEPARTMENT IN [place]. WILL CONTINUE TO MONITOR PT.
[2020-10-16 14:44] VITALS: BP 122/67; PULSE 83; RESP 20; TEMP 36.5; O2SAT 96
--- NOTE | 2020-10-16 15:38 | NURSING ---
PER THERAPY PT IS ALLOWED UP AB SIMI IN ROOM BUT WILL NEED HELP WITH MORNING CARE.
[2020-10-16] MEDS: Nystatin Ointment 1 APPLIC TOPICAL (17:46)
[2020-10-16] MEDS: traZODone 50 MG Tablet PO (21:08)
[2020-10-16] MEDS: Atorvastatin Calcium 20 MG Tablet PO (21:08)
[2020-10-16] MEDS: oxyCODONE 5 MG Tablet PO (21:13)
[2020-10-17] MEDS: oxyCODONE 5 MG Tablet PO ×2 (01:16→20:17)
[2020-10-17 06:40] VITALS: BP 115/67; PULSE 82; RESP 18; TEMP 36.8; O2SAT 969
[2020-10-17] MEDS: NYSTATIN 500,000 UNIT/5 ML UDC 500000 UNIT PO ×4 (06:42→21:29)
[2020-10-17] MEDS: Nystatin Powder 15gm Bottle 1 APPLIC TOPICAL ×2 (06:42→21:29)
[2020-10-17] MEDS: amLODIPine 10 MG Tablet PO (06:42)
[2020-10-17] MEDS: Losartan Potassium 100 MG Tablet PO (06:42)
[2020-10-17] MEDS: buPROPion (XL) 150 MG TABLET.XL PO (06:44)
[2020-10-17] MEDS: Nystatin Ointment 1 APPLIC TOPICAL ×2 (06:44→17:13)
[2020-10-17] MEDS: Na Biphos/Potassium Phosphate PACKET 1 PACKET PO ×3 (06:44→21:29)
[2020-10-17] MEDS: Folic Acid 1 MG Tablet PO (07:55)
[2020-10-17] MEDS: Thiamine Hydrochloride 100 MG Tablet PO (07:55)
[2020-10-17] MEDS: Aspirin 81 MG TAB.CHEW PO (07:55)
[2020-10-17] MEDS: Potassium Chloride Oral Tablet 20 MEQ PO (07:55)
[2020-10-17] MEDS: Albuterol Sulfate 8 gm Inhaler (60 puffs) 2 PUFF INHALATION ×2 (09:20→14:31)
[2020-10-17 09:29] VITALS: PULSE 91; O2SAT 95
--- NOTE | 2020-10-17 09:34 | NURSING ---
Addendum entered by Susana Salguero 10/17/20 15:56: N.O. CXR, and Lozenges PRN Original Note: Pt c/o dry cough and congestion and reports aspirating liquids this morning, fine crackles noted in left lower lobe pt requesting breathing tx, none are ordered at this time but pt received prn albuterol inhaler per order for SOB and is content with intervention, oxygen 95% on room air. Pt requesting lozenges at this time, message left to update Dr. Hampton.
--- NOTE | 2020-10-17 13:32 | RAD_ITS ---
STUDY: X-RAY CHEST REASON FOR EXAM: Male, 70 years old. Cough, aspiration. TECHNIQUE: PA and lateral views of the chest. COMPARISON: Comparison is made with prior study dated 10/05/2020. FINDINGS: The lungs are clear and expanded. There is no demonstrated pleural abnormality. Normal size heart. Normal mediastinum and brandy. Normal visualized pulmonary arteries. There is atherosclerotic calcification of the aortic arch with tortuosity. Normal visualized thoracic spine. There is degenerative osteoarthritis of the bilateral shoulders. There is no demonstrated abnormality of the visualized soft tissue structures of the upper abdomen. RAD/Chest PA and Lateral IMPRESSION: No acute abnormality seen. Electronically Signed: Epi Kolb MD at 14:36 EDT , Service support ,
--- NOTE | 2020-10-17 13:38 | PCM.DC.SUM ---
Providers Date of Admission: 10/06/20 Primary Care Physician: ALTHEA Stevens Reason For Visit: ACUTE PANCREATITIS Diagnosis Discharge Diagnosis (1) Physical debility: Status: Acute Code(s): R53.81 - Other malaise (2) Alcoholism: Status: Acute Code(s): F10.20 - Alcohol dependence, uncomplicated (3) Acute pancreatitis: Status: Resolved Code(s): K85.90 - Acute pancreatitis without necrosis or infection, unspecified Qualifiers: Pancreatitis type: alcohol induced Acute pancreatitis complication: no infection or necrosis Qualified Code(s): K85.20 - Alcohol induced acute pancreatitis without necrosis or infection (4) Acute hyperactive alcohol withdrawal delirium: Status: Resolved Code(s): F10.231 - Alcohol dependence with withdrawal delirium (5) Thrombocytopenia: Status: Acute Code(s): D69.6 - Thrombocytopenia, unspecified (6) Leukopenia: Status: Resolved Code(s): D72.819 - Decreased white blood cell count, unspecified Qualifiers: Leukopenia type: lymphocytopenia Qualified Code(s): D72.810 - Lymphocytopenia (7) Macrocytic anemia: Status: Acute Code(s): D53.9 - Nutritional anemia, unspecified (8) Hypomagnesemia: Status: Resolved Code(s): E83.42 - Hypomagnesemia (9) Hyponatremia: Status: Resolved Code(s): E87.1 - Hypo-osmolality and hyponatremia (10) Hyperglycemia: Status: Acute Code(s): R73.9 - Hyperglycemia, unspecified (11) Hypophosphatemia: Status: Acute Code(s): E83.39 - Other disorders of phosphorus metabolism (12) Hypokalemia: Status: Resolved Code(s): E87.6 - Hypokalemia (13) Depression: Status: Acute Code(s): F32.9 - Major depressive disorder, single episode, unspecified Qualifiers: Depression Type: reactive depression Qualified Code(s): F32.9 - Major depressive disorder, single episode, unspecified (14) Hypertension: Status: Deleted Code(s): I10 - Essential (primary) hypertension Qualifiers: Hypertension type: essential hypertension Qualified Code(s): I10 - Essential (primary) hypertension (15) Paroxysmal atrial fibrillation: Status: Chronic Code(s): I48.0 - Paroxysmal atrial fibrillation (16) History of paroxysmal supraventricular tachycardia: Status: Chronic Code(s): Z86.79 - Personal history of other diseases of the circulatory system (17) Dysmetabolic syndrome X: Status: Chronic Code(s): E88.81 - Metabolic syndrome (18) Hyperlipidemia: Status: Chronic Code(s): E78.5 - Hyperlipidemia, unspecified Qualifiers: Hyperlipidemia type: unspecified Qualified Code(s): E78.5 - Hyperlipidemia, unspecified (19) GERD (gastroesophageal reflux disease): Status: Chronic Code(s): K21.9 - Gastro-esophageal reflux disease without esophagitis Qualifiers: Esophagitis presence: without esophagitis Qualified Code(s): K21.9 - Gastro-esophageal reflux disease without esophagitis (20) Obesity: Status: Chronic Code(s): E66.9 - Obesity, unspecified Qualifiers: Obesity type: due to excess calories Obesity classification: adult class 2 (BMI 35 - 39.9) Serious obesity comorbidity presence: with serious comorbidity Body mass index: BMI 35.0-35.9 Qualified Code(s): E66.01 - Morbid (severe) obesity due to excess calories; Z68.35 - Body mass index [BMI] 35.0-35.9, adult (21) Asthma: Status: Chronic Code(s): J45.909 - Unspecified asthma, uncomplicated Qualifiers: Asthma severity: unspecified severity Asthma persistence: intermittent Asthma complication type: uncomplicated Qualified Code(s): J45.20 - Mild intermittent asthma, uncomplicated (22) History of total right hip replacement: Status: Inactive Code(s): Z96.641 - Presence of right artificial hip joint (23) Hypocalcemia: Status: Acute Code(s): E83.51 - Hypocalcemia (24) Insomnia disorder: Status: Acute Code(s): G47.00 - Insomnia, unspecified Medications at Discharge Home Medications albuterol sulfate 2 puff INHALATION Q4H PRN PRN 07/24/16 atorvastatin 20 mg PO QHS 07/24/16 azelastine 137 mcg (0.1 %) nasal spray aerosol 1 spray INTRANASAL BID PRN 05/06/20 acebutolol 200 mg PO BID 09/29/20 amlodipine 10 mg PO DAILY 10/06/20 folic acid 1 mg PO BREAKFAST 10/06/20 losartan 100 mg PO DAILY 10/06/20 melatonin 10 mg PO QHS 10/06/20 thiamine HCl (vitamin B1) [Vitamin B-1] 100 mg PO BREAKFAST 10/06/20 aspirin 81 mg PO BREAKFAST #0 tab 10/17/20 bupropion HCl 150 mg PO DAILY 30 Days #30 tab 10/17/20 potassium chloride [Klor-Con M20] 20 meq PO DAILYCM 30 Days #30 tab 10/17/20 trazodone 50 mg PO QHS 30 Days #30 tab 10/17/20 Hospital Course Operations None Procedures None Summary of Care Provided Minutes Spent on Discharge: 35 Hospital Course: 70 year old male with below past medical history hospitalized for alcoholic pancreatitis, admitted to TCU with debility, here for rehabilitation, strengthening, prior to discharge home alone. Discharge home alone 10/20/2020, Resident declined home health PT/OT. He also declined referral to [facility] for alcohol addiction services. Physical Exam Const alert and oriented x3 General Appearance: cooperative HEENT normocephalic Eyes PERRL and EOMs intact bilaterally Neck supple, no JVD and no carotid bruits Resp normal respiratory effort, normal air movement and clear to auscultation bilaterally Cardio regular rate and regular rhythm GI normal to inspection, nondistended, normoactive bowel sounds, non-tender and non-distended Extremity normal capillary refill General Extremity: Negative for edema Skin no rashes or lesions noted General Skin Exam: no breakdown Psych affect normal Appearance: appropriate Weight / BMI Weight Weight: 110.393 kg Body Mass Index (BMI) 35.8 ABG / Lab / Microbiology Data Result Diagrams: 10/16/20 05:18 10/16/20 05:18 Microbiology: Microbiology 10/07/20 21:00 Stool Stool Occult Blood (KIKE) - Final Occult Blood Positive 10/06/20 16:00 Mucosa - Nose SARS-CoV-2 Antigen (Rapid) - Final D/C Instructions Discharge Diet: No restrictions Discharge Activity: Return to Normal Activity, May Shower and Use Walker Weight Bearing Status: Weight bearing as tolerated Call your doctor if you observe: Fever of 101 or Higher, Inability to urinate, Shortness of breath, Dizziness, Fainting spells, Swelling in the ankles, Chest pain and Uncontrolled pain Additional Instructions: Discharge home alone 10/20/2020, Resident declined home health PT/OT. He also declined referral to [facility] for alcohol addiction services. Please Follow Up With: Waqas Haro PA When: 1 week. Meaningful Use Info Meaningful Use Diagnoses (Choose all that apply): None applicable Discharge Plan Admission Admit Date/Time: 10/06/20 14:46 Primary Reason for Your Visit: Debility Attending Provider: Sean Hampton Chi Primary Care Provider: Waqas Haro Instructions Additional Instructions / Restrictions: Discharge home alone 10/20/2020, Resident declined home health PT/OT. He also declined referral to [facility] for alcohol addiction services. Discharge Orders/Prescriptions Prescriptions: New trazodone 50 mg Tablet 50 mg PO QHS 30 Days Qty: 30 RF: 0 potassium chloride [Klor-Con M20] 20 mEq Tablet,Er Particles/Crystals 20 meq PO DAILYCM 30 Days Qty: 30 RF: 0 aspirin 81 mg Tablet,Chewable 81 mg PO BREAKFAST Qty: 0 RF: 0 bupropion HCl 150 mg Tablet Extended Release 24 Hr 150 mg PO DAILY 30 Days Qty: 30 RF: 0 Continued atorvastatin 20 MG tablet 20 mg PO QHS RF: 0 albuterol sulfate 1 PUFF inhaler 2 puff inhalation Q4H PRN PRN (Reason: Sob &/Or Wheezing) RF: 0 azelastine 137 mcg (0.1 %) aerosol,spray 1 spray INTRANASAL BID PRN (Reason: allergies) RF: 0 acebutolol 200 mg capsule 200 mg PO BID RF: 0 thiamine HCl (vitamin B1) [Vitamin B-1] 100 mg tablet 100 mg PO BREAKFAST RF: 0 amlodipine 10 mg tablet 10 mg PO DAILY RF: 0 folic acid 1 mg tablet 1 mg PO BREAKFAST RF: 0 losartan 100 mg tablet 100 mg PO DAILY RF: 0 melatonin 10 mg tablet, sublingual 10 mg PO QHS RF: 0 Discontinued aspirin 325 mg tablet 325 mg PO DAILY RF: 0 potassium, sodium phosphates [Phos-NaK] 280-160-250 mg powder in packet 1 packet PO TID RF: 0 Referrals / Follow Up: Waqas Haro PA [Primary Care Provider] - Disposition Disposition (needs filled in before D/C Order can be placed): Home, self care
--- NOTE | 2020-10-17 13:48 | CASEMGMT ---
Social Work Insurance issued Last Covered Day of 10/19/20 with discharge day of 10/20. SW met with pt and informed and pt is agreeable to discharge and plans to return home alone at that time. Per pt, [place] dgt [place] and will be able to transport home and will stay with him for a few days for transition home. SW informed pt that therapy is recommending home PT/OT and pt is declining at this time stating he wants to return home and see how it goes before he decides if he needs home health. SW provided a list of home health agencies and informed pt if he changes mind while here, SW will assist in coordinating. If he changes his mind while at home to contact PCP. SW then requested to make an appointment at [facility] for alcohol counseling and mental health counseling. Again pt refused stating he will decide once he gets home if he really needs these services. SW provided written information on [facility], [facility], a list of substance abuse and meeting resources as well as a list of mental health counselors. Pt does need a wheeled walker and he is agreeable to this and preferred provider is [facility]. Referral made to [facility] and [facility] to be delivered later today or on Tuesday morning. SW requested to phone pt dgt and to review discharge plan. Pt refuses stating she will be in later and he will update her. Physician and IDT updated on discharge plan. Discharge Date: 10/20/20 Discharge Disposition: Home alone CHRISTEL Bang
[2020-10-17] MEDS: BENZOCAINE/MENTHOL 1 LOZENGE 2 LOZENGE MUCOUS MEM (14:30)
[2020-10-17 15:38] VITALS: BP 112/63; PULSE 85; RESP 16; TEMP 36.8; O2SAT 93
[2020-10-17] MEDS: traZODone 50 MG Tablet PO (21:28)
[2020-10-17] MEDS: Atorvastatin Calcium 20 MG Tablet PO (21:28)
[2020-10-18] MEDS: oxyCODONE 5 MG Tablet PO ×2 (02:39→21:09)
[2020-10-18 05:00] VITALS: BP 132/79; PULSE 89; RESP 16; TEMP 36.6; O2SAT 95
[2020-10-18] MEDS: Na Biphos/Potassium Phosphate PACKET 1 PACKET PO ×3 (06:05→21:06)
[2020-10-18] MEDS: buPROPion (XL) 150 MG TABLET.XL PO (06:06)
[2020-10-18] MEDS: amLODIPine 10 MG Tablet PO (06:06)
[2020-10-18] MEDS: NYSTATIN 500,000 UNIT/5 ML UDC 500000 UNIT PO ×4 (06:06→21:06)
[2020-10-18] MEDS: Losartan Potassium 100 MG Tablet PO (06:07)
[2020-10-18] MEDS: Nystatin Ointment 1 APPLIC TOPICAL ×2 (06:08→20:06)
[2020-10-18] MEDS: Nystatin Powder 15gm Bottle 1 APPLIC TOPICAL (07:24)
[2020-10-18] MEDS: Folic Acid 1 MG Tablet PO (08:38)
[2020-10-18] MEDS: Potassium Chloride Oral Tablet 20 MEQ PO (08:38)
[2020-10-18] MEDS: Aspirin 81 MG TAB.CHEW PO (08:38)
[2020-10-18] MEDS: Thiamine Hydrochloride 100 MG Tablet PO (08:38)
--- NOTE | 2020-10-18 11:01 | NURSING ---
DAUGHTER UPDATED AT VISIT.
[2020-10-18 14:00] VITALS: BP 125/70; PULSE 89; RESP 18; TEMP 36.9; O2SAT 95
[2020-10-18] MEDS: Acetaminophen 500 MG Tablet 1000 MG PO (16:55)
[2020-10-18] MEDS: Atorvastatin Calcium 20 MG Tablet PO (21:07)
[2020-10-18] MEDS: traZODone 50 MG Tablet PO (21:07)
[2020-10-19 05:21] VITALS: BP 123/72; PULSE 86; RESP 16; TEMP 36.7; O2SAT 97
[2020-10-19] MEDS: buPROPion (XL) 150 MG TABLET.XL PO (05:22)
[2020-10-19] MEDS: NYSTATIN 500,000 UNIT/5 ML UDC 500000 UNIT PO ×4 (05:22→19:49)
[2020-10-19] MEDS: Losartan Potassium 100 MG Tablet PO (05:22)
[2020-10-19] MEDS: Na Biphos/Potassium Phosphate PACKET 1 PACKET PO ×3 (05:22→19:48)
[2020-10-19] MEDS: amLODIPine 10 MG Tablet PO (05:22)
[2020-10-19] MEDS: Nystatin Ointment 1 APPLIC TOPICAL ×2 (05:23→18:47)
[2020-10-19] MEDS: Aspirin 81 MG TAB.CHEW PO (09:26)
[2020-10-19] MEDS: Folic Acid 1 MG Tablet PO (09:27)
[2020-10-19] MEDS: Potassium Chloride Oral Tablet 20 MEQ PO (09:28)
[2020-10-19] MEDS: Thiamine Hydrochloride 100 MG Tablet PO (09:29)
[2020-10-19 16:48] VITALS: BP 123/68; PULSE 85; RESP 17; TEMP 36.3; O2SAT 96
[2020-10-19 18:16] VITALS: PULSE 87; RESP 18; O2SAT 97
[2020-10-19] MEDS: oxyCODONE 5 MG Tablet PO (19:47)
[2020-10-19] MEDS: Atorvastatin Calcium 20 MG Tablet PO (19:50)
[2020-10-19] MEDS: traZODone 50 MG Tablet PO (21:31)
[2020-10-20] MEDS: oxyCODONE 5 MG Tablet PO (01:38)
[2020-10-20 05:00] VITALS: BP 116/67; PULSE 85; RESP 18; TEMP 36.5; O2SAT 97
[2020-10-20] MEDS: buPROPion (XL) 150 MG TABLET.XL PO (06:28)
[2020-10-20] MEDS: Losartan Potassium 100 MG Tablet PO (06:28)
[2020-10-20] MEDS: NYSTATIN 500,000 UNIT/5 ML UDC 500000 UNIT PO (06:28)
[2020-10-20] MEDS: amLODIPine 10 MG Tablet PO (06:28)
[2020-10-20] MEDS: Na Biphos/Potassium Phosphate PACKET 1 PACKET PO (06:28)
[2020-10-20] MEDS: Nystatin Ointment 1 APPLIC TOPICAL (06:31)
--- NOTE | 2020-10-20 08:27 | CASEMGMT ---
Social Work Voicemail received from patient daughter, July. This social work program coordinator returning phone call, no answer. Voicemail left. Sergey Dejesus MSW, JESÚS-S
[2020-10-20] MEDS: Folic Acid 1 MG Tablet PO (08:44)
[2020-10-20] MEDS: Thiamine Hydrochloride 100 MG Tablet PO (08:45)
[2020-10-20] MEDS: Aspirin 81 MG TAB.CHEW PO (08:45)
[2020-10-20] MEDS: Potassium Chloride Oral Tablet 20 MEQ PO (08:45)
--- NOTE | 2020-10-20 08:48 | CASEMGMT ---
Social Work Return phone call received from patient daughter, July. This licensed master social worker able to answer questions in regards to home health and substance abuse resources. Patient to discharge today: 10/20/2020. PASTORA Baldwin
[2020-10-20 09:55] VITALS: BP 111/57; PULSE 74; RESP 18; TEMP 36.4; O2SAT 97
[2020-10-20 10:00] VITALS: PULSE 74; RESP 18; O2SAT 97
== END 2020-10-20 10:05 | disposition home or self-care (01) | DRG 439 ==
PROVIDERS: Internal Medicine; Admitting Provider Family Medicine Geriatric Medicine; PCP Physician Assistant; Visit Provider Family Medicine Geriatric Medicine
DX: K85.20 Alcohol induced acute pancreatitis without necrosis or infection (principal); F10.231 Alcohol dependence with withdrawal delirium; I47.1 Supraventricular tachycardia; Z23 Encounter for immunization; J45.20 Mild intermittent asthma, uncomplicated; Z68.35 Body mass index [BMI] 35.0-35.9, adult; E66.01 Morbid (severe) obesity due to excess calories; K21.9 Gastro-esophageal reflux disease without esophagitis; E78.5 Hyperlipidemia, unspecified; E88.81 Metabolic syndrome and other insulin resistance; I48.0 Paroxysmal atrial fibrillation; F32.9 Major depressive disorder, single episode, unspecified; E87.6 Hypokalemia; I10 Essential (primary) hypertension; Z79.899 Other long term (current) drug therapy; Z79.82 Long term (current) use of aspirin; Z91.81 History of falling
CPT/HCPCS: 36415; 71046; 80048; 80061; 82274; 83036; 83735; 84100; 85014; 85018; 85025; 87426; 92507; 92523; 92526; 92610; 97110; 97116; 97162; 97166; 97530; 97535; 97802; G0009; 90670

== ENCOUNTER → 2021-08-24 | Outpatient (CLI) | payer MEDICARE, SELFPAY ==
[2021-08-24 10:53] LABS: Anion Gap 7 (5-15); BUN 25 mg/dL (7-18); Calcium,Total 10.1 mg/dL (8.5-10.1); Chloride 104 mmol/L (98-107); Creatinine, Serum 1.19 mg/dL (0.70-1.30); EST Glomerular Filtration Rate 64 mL/min (>60); Est Glom Filt Rate - Afr Amer 77 mL/min (>60); Glucose 119 mg/dL (74-106); Sodium Level 136 mmol/L (136-145)
== END | disposition home or self-care (01) ==
LOC: LAB 08:57
PROVIDERS: PCP Physician Assistant; Referring Provider Physician Assistant Medical; Visit Provider Physician Assistant Medical
DX: I10 Essential (primary) hypertension (principal); R01.1 Cardiac murmur, unspecified
CPT/HCPCS: 36415; 80048

== ENCOUNTER → 2021-10-14 | Outpatient (CLI) | payer MEDICARE, SELFPAY ==
--- NOTE | 2021-10-14 12:52 | ECHOCS_ITS ---
Reason For Study: MURMUR Procedure This was a 2D Doppler, Color Flow transthoracic echocardiogram. The study was technically difficult. Contrast injection was performed. Exam performed in department. Left Ventricle Normal LV size. Left ventricular systolic function is normal. The estimated ejection fraction is 65 %. No evidence for diastolic dysfunction. No regional wall motion abnormalities noted. Right Ventricle Normal RV size. Normal systolic function. Atria Normal left atrium. Normal right atrium. No doppler evidence for ASD. Mitral Valve There is no mitral annular calcification. Normal mitral valve. Trivial mitral valve insufficiency. Tricuspid Valve Normal tricuspid valve. Trivial tricuspid valve insufficiency. Unable to estimate RV systolic pressure/pulmonary artery pressure due to technically difficult study. Aortic Valve Trisinus/trileaflet aortic valve. Mild focal aortic valve calcification. Pulmonic Valve The pulmonic valve is not well visualized. Great Vessels The aortic root is not well visualized. Pericardium/Pleural No pericardial effusion. Medication 22 gauge I.V. with prn adaptor inserted into right arm. Diluted definity 2ml given slow IV push to enhance endocardial definition. MMode/2D Measurements & Calculations LVIDd: 4.7 cm IVSd: 0.89 cm LAV(MOD-bp): 36.3 ml LVIDs: 3.2 cm LVPWd: 0.83 cm RVDd: 3.9 cm FS: 32.2 % LAV(MOD-bp) Indexed: 14.9 ml/m2 LAV(MOD-sp2): 38.5 ml LAV(MOD-sp4): 36.0 ml SV(MOD-sp4): 68.2 ml SV(sp4-el): 74.1 ml LVAd ap4: 34.7 cm2 LVLd ap4: 8.7 cm EDV(MOD-sp4): 113.0 ml EDV(sp4-el): 117.6 ml LVAs ap4: 19.1 cm2 LVLs ap4: 7.1 cm ESV(MOD-sp4): 44.8 ml ESV(sp4-el): 43.5 ml EF(MOD-sp4): 60.4 % EF(sp4-el): 63.0 % LA dimension(2D): 3.4 cm LA A4 area: 15.6 cm2 RA A4 area: 14.8 cm2 Time Measurements MV dec time: 0.33 sec Doppler Measurements & Calculations MV E max shawn: 64.6 cm/sec Lat Peak E' Shawn: 9.6 cm/sec Med Peak E' Shawn: 7.8 cm/sec MV A max shawn: 90.3 cm/sec E/E' lat: 6.7 E/E' med: 8.3 MV E/A: 0.72 Ao V2 max: 173.1 cm/sec LV V1 max: 112.5 cm/sec PA V2 max: 117.9 cm/sec Ao max P.0 mmHg LV V1 max P.1 mmHg ECHO/Echo Complete W/ Contrast Interpretation Summary The study was technically difficult. Contrast injection was performed. Left ventricular systolic function is normal. The estimated ejection fraction is 65 %. Trivial mitral valve insufficiency. Trivial tricuspid valve insufficiency. Mild focal aortic valve calcification. Unable to estimate RV systolic pressure/pulmonary artery pressure due to techni ocnstance difficult study. No evidence for diastolic dysfunction. Ordering Physician: Suzette Naylor/Samuel Hill Referring Physician: MADIHA YEE Performed By: Valeria Collier RDCS
== END | disposition home or self-care (01) ==
LOC: CVS 12:51
PROVIDERS: PCP Physician Assistant; Referring Provider Physician Assistant Medical; Visit Provider Physician Assistant Medical
DX: I48.0 Paroxysmal atrial fibrillation (principal)
CPT/HCPCS: 93306; Q9957; A4216; C8929